=== PATIENT | male | born 1950 | race Caucasian/White ===

== ENCOUNTER 2019-07-02 10:40 | Outpatient (CLI) | payer MEDICARE, SELFPAY ==
--- NOTE | ~2019-07-02 | MR_ITS ---
EXAMINATION: MR cervical spine wo con DATE: 07/02/2019 12:17 INDICATION: Cervical radiculopathy. TECHNIQUE: Magnetic resonance imaging (MRI) of the cervical spine was performed without intravenous c ontrast. Sequences included sagittal T2-weighted FSE, sagittal T2-weighted FS FSE, sagittal T1-weight ed FSE, axial MERGE, and axial T2-weighted FSE. COMPARISON: None FINDINGS: There is 2 mm retrolisthesis of C3 on C4 and C5 on C6. Partially visualized are changes of posterior fusion procedure in thoracic spine. There is mild chronic anterior wedging of T5 and T6 irving tebral bodies. There is severely decreased disc height at C3-C4 and moderately decreased disc height at C5-C6 and C6-C7. The spinal cord signal intensity is normal. The following disc levels are specifi montserrat discussed: C2-C3: The disc does not extend beyond the endplate margin. There is no uncovertebral joint osteoarth ritis. There is mild right and moderate left facet joint osteoarthritis. There is no neural foraminal stenosis. There is no central canal stenosis. C3-C4: The disc is bulging. There is severe bilateral uncovertebral joint osteoarthritis. There is mo derate bilateral facet joint osteoarthritis. There is mild bilateral neural foraminal stenosis. There is mild central canal stenosis with ventral indentation of the spinal cord. C4-C5: There is a central protrusion. There is mild right uncovertebral joint osteoarthritis. There i s severe right and moderate left facet joint osteoarthritis. There is mild right neural foraminal elle nosis. There is no central canal stenosis. C5-C6: The disc is bulging. There is severe bilateral uncovertebral joint osteoarthritis. There is mi ld bilateral facet joint osteoarthritis. There is moderate right and mild left neural foraminal steno sis. There is mild central canal stenosis with ventral indentation of the spinal cord. C6-C7: The disc is bulging. There is severe bilateral uncovertebral joint osteoarthritis. There is se carmine bilateral facet joint osteoarthritis. There is mild right and moderate left neural foraminal elle nosis. There is mild central canal stenosis. C7-T1: The disc does not extend beyond the endplate margin. There is no uncovertebral joint osteoarth ritis. There is severe bilateral facet joint osteoarthritis. There is mild bilateral neural foraminal stenosis. There is no central canal stenosis. IMPRESSION: 1. Severe cervical spondylosis. Reviewed, dictated and finalized at location A. 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
== END 2019-07-02 10:41 | disposition home or self-care (01) ==
PROVIDERS: PCP Internal Medicine; Visit Provider Internal Medicine
DX: M47.22 Other spondylosis with radiculopathy, cervical region (principal)
CPT/HCPCS: 72141

== ENCOUNTER 2020-01-09 12:42 | Outpatient (CLI) | payer MEDICARE, SELFPAY ==
--- NOTE | ~2020-01-09 | CT_ITS ---
EXAMINATION:CT lung screening DATE: 01/09/2020 13:10 INDICATION: Personal history of tobacco dependence. Current smoker with 45 pack year history. TECHNIQUE: Computed tomography (CT) of the chest was performed without intravenous contrast. Automate d exposure control and iterative reconstruction technique were employed. The dose-length product (DLP ) was 131.02 mGy-cm. COMPARISON: Chest CT 12/02/2017 FINDINGS: There is mild scarring at the lung apices. There is mild atelectasis bilaterally. There is a 4 mm nodule in right middle lobe. No pleural effusion. The heart size is normal. There are coronary artery calcifications. No pericardial effusion. There is thoracic kyphosis and moderate spondylosis. There is mild chronic anterior wedging of multiple thoracic vertebral bodies. There are changes of p osterior fusion procedure at T5-T6. IMPRESSION: 1. Lung-RADS category 2: Benign appearance or behavior. Continue annual screening with noncontrast lo w-dose chest CT in 12 months. Reviewed, dictated and finalized at location A. IMPRESSION: 1. Lung-RADS category 2: Benign appearance or behavior. Continue annual screeni ng with noncontrast low-dose chest CT in 12 months.
== END 2020-01-09 12:43 | disposition home or self-care (01) ==
LOC: ANHIMG 12:46
PROVIDERS: PCP Internal Medicine; Visit Provider Internal Medicine
DX: Z12.2 Encounter for screening for malignant neoplasm of respiratory organs (principal); Z87.891 Personal history of nicotine dependence
CPT/HCPCS: G0297

== ENCOUNTER 2021-11-06 00:56 | Day surgery (SDC) | payer MEDICARE, SELFPAY ==
[2021-10-15 11:27] VITALS: BMI 29.6
--- NOTE | 2021-10-25 10:08 | PC.NURSE ---
New date and arrival time reviewed with patient for EGD and Colonoscopy on 11/06/21 13:00 arrival at 11:30. Medication list updated, instructions reviewed
--- NOTE | 2021-11-05 14:56 | WPDANESEPPF ---
Anes - Initial Pre Proc Eval Procedure: Operation Date: 11/06/21 11:15 Proposed Procedures p Esophagogastroduodenoscopy & Screening Colonoscopy - Rikki Ricketts MD Date/Time: 11/05/21 14:56 Surgeon: Rikki Ricketts MD Pre Op Diagnosis: hx of colon polyps, abdominal pain, GERD Patient Data Age: 71 Gender: M Height: 1.73 m Weight: 88.5 kg Allergies Allergy/AdvReac Type Severity Reaction Status Date / Time amoxicillin Allergy Severe ITCHING, Verified 11/06/21 10:00 DIFFICULTY SWALLOWING adhesive AdvReac Intermediate REDNESS Verified 11/06/21 10:00 bacitracin AdvReac Unknown REDNESS AT Verified 11/06/21 10:00 THE SITE neomycin AdvReac Unknown REDNESS AT Verified 11/06/21 10:00 THE SITE polymyxin B AdvReac Unknown REDNESS AT Verified 11/06/21 10:00 THE SITE Home Medications Medication Instructions Recorded Confirmed Type sodium,potassium,mag sulfates 17.5 See Rx Instructions PO .COMPLEX 09/10/21 10/25/21 Rx gram-3.13 gram-1.6 gram oral soln #354 mL (Suprep Bowel Prep Kit) allopurinol 300 mg tablet 300 tablet PO DAILY 10/15/21 10/25/21 History coQ10 (ubiquinol) 200 mg capsule 200 mg PO DAILY 10/15/21 10/25/21 History fexofenadine 180 mg tablet 180 mg PO DAILY 10/15/21 10/25/21 History fluticasone propionate 50 2 spray intranasal DAILY PRN 10/15/21 10/25/21 History mcg/actuation nasal Allergy Symptoms spray,suspension (Flonase Allergy Relief) lisinopril 20 1 tablet PO DAILY 10/15/21 10/25/21 History mg-hydrochlorothiazide 12.5 mg tablet lorazepam 0.5 mg tablet 0.5 tablet PO TID PRN Anxiety 10/15/21 10/25/21 History multivitamin with minerals-folic 1 tablet PO DAILY 10/15/21 10/25/21 History acid 0.4 mg tablet rosuvastatin 10 mg tablet 10 tablet PO DAILY 10/15/21 10/25/21 History triamcinolone acetonide 0.1 % 1 applic topical PRN PRN Rash 10/15/21 10/25/21 History topical cream triamcinolone acetonide 55 mcg 1 spray intranasal DAILY PRN 10/15/21 10/25/21 History nasal spray aerosol (Nasacort) Allergy Symptoms omeprazole 20 mg capsule,delayed 20 mg PO DAILY 10/25/21 10/25/21 History release Patient hx anesthesia problems: none Family hx anesthesia problems: none Results Review: All pre-operative results and documents have been reviewed as part of the pre-operative evaluation. [facility] Past Medical History Medical History (Updated 11/05/21 @ 16:59 by Rikki Ricketts MD) Anxiety Chronic GERD DDD (degenerative disc disease) HTN (hypertension) Hyperlipidemia Obesity Social History Social History Smoking packs per day: 2 Smoking cigarettes per day: 40.0 Years smoked: 35 Smoking pack-years: 70.00 Smoking status: Former smoker Tobacco type: cigarettes Alcohol intake: current Drinks per week: 3 Substance use: never Substance use type: does not use Living arrangements: with family Spiritual care concerns: No Anes - Eval Final PreProcedure Day of Procedure 11/05/21 14:56 Patient weight: obese Heart: regular rate and rhythm Lungs: clear to auscultation and normal air movement Airway: Mallampati scale class II Neurological: alert and oriented Last oral intake: >/= 8 hours ASA classification: III Emergent: no Anesthetic plan: proceed Anesthesia type and monitoring: general GIVS Results Review: All pre-operative results and documents have been reviewed as part of the pre-operative evaluation. Informed Consent: The patient's anesthetic plan and its attendant risks and benefits were discussed with the patient/family/POA. Questions were solicited and answers provided to the satisfaction of the patient/family/POA.
--- NOTE | 2021-11-05 16:58 | PM.HPGS ---
History of Present Illness History of Present Illness Consent: Risks, benefits, and alternatives have been discussed and questions answered. Patient agrees to proceed with procedure. Chief complaint: hx of colon polyps, abdominal pain, GERD Narrative: Joshua Gray is a 71 year old male Referred for colon cancer screening. he has a history of polyps. His last colonoscopy was about 5 years ago. Recently he has felt a discomfort in the area of his bladder because he has to strain to have a bowel movement. He wonders if he might have pulled something there. He also has been having pain in the upper abdomen. It is sometimes constant. He has been told in the past that he had gastritis. He does take ibuprofen or other anti-inflammatories for his back. In June when his foot flared up with inflammation he took the steroid dose pack. Shortly after that he began having more gastrointestinal symptoms with a burning or hunger sensation in the epigastric area. He was getting better last month but then had some fried chicken and that set off in September a flare up. He was then switched from famotidine to Prilosec. He has taken Prilosec for about 3 weeks but has not noticed any benefit from that. There has been no weight loss Review of Systems Review of Systems: All systems reviewed & are unremarkable except as noted in HPI and below PMFSH Past Medical History Medical History (Updated 11/06/21 @ 10:52 by Rikki Ricketts MD) Anxiety Chronic GERD DDD (degenerative disc disease) HTN (hypertension) Hyperlipidemia Obesity Social History Social History Smoking packs per day: 2 Smoking cigarettes per day: 40.0 Years smoked: 35 Smoking pack-years: 70.00 Smoking status: Former smoker Tobacco type: cigarettes Alcohol intake: current Drinks per week: 3 Substance use: never Substance use type: does not use Living arrangements: with family Spiritual care concerns: No Meds Home Medications and Allergies Home Medications Medication Instructions Recorded Confirmed Type sodium,potassium,mag sulfates 17.5 See Rx Instructions PO .COMPLEX 09/10/21 10/25/21 Rx gram-3.13 gram-1.6 gram oral soln #354 mL (Suprep Bowel Prep Kit) allopurinol 300 mg tablet 300 tablet PO DAILY 10/15/21 10/25/21 History coQ10 (ubiquinol) 200 mg capsule 200 mg PO DAILY 10/15/21 10/25/21 History fexofenadine 180 mg tablet 180 mg PO DAILY 10/15/21 10/25/21 History fluticasone propionate 50 2 spray intranasal DAILY PRN 10/15/21 10/25/21 History mcg/actuation nasal Allergy Symptoms spray,suspension (Flonase Allergy Relief) lisinopril 20 1 tablet PO DAILY 10/15/21 10/25/21 History mg-hydrochlorothiazide 12.5 mg tablet lorazepam 0.5 mg tablet 0.5 tablet PO TID PRN Anxiety 10/15/21 10/25/21 History multivitamin with minerals-folic 1 tablet PO DAILY 10/15/21 10/25/21 History acid 0.4 mg tablet rosuvastatin 10 mg tablet 10 tablet PO DAILY 10/15/21 10/25/21 History triamcinolone acetonide 0.1 % 1 applic topical PRN PRN Rash 10/15/21 10/25/21 History topical cream triamcinolone acetonide 55 mcg 1 spray intranasal DAILY PRN 10/15/21 10/25/21 History nasal spray aerosol (Nasacort) Allergy Symptoms omeprazole 20 mg capsule,delayed 20 mg PO DAILY 10/25/21 10/25/21 History release Allergies Allergy/AdvReac Type Severity Reaction Status Date / Time amoxicillin Allergy Severe ITCHING, Verified 11/06/21 10:00 DIFFICULTY SWALLOWING adhesive AdvReac Intermediate REDNESS Verified 11/06/21 10:00 bacitracin AdvReac Unknown REDNESS AT Verified 11/06/21 10:00 THE SITE neomycin AdvReac Unknown REDNESS AT Verified 11/06/21 10:00 THE SITE polymyxin B AdvReac Unknown REDNESS AT Verified 11/06/21 10:00 THE SITE Exam Const: General: alert Orientation/consciousness: patient oriented x3 Resp: Auscultation: clear to auscultation bilaterally Cardio: Rate: regular rate Rhythm: regular
[2021-11-06 10:02] VITALS: BP 143/96; PULSE 125; RESP 19; TEMP 36.5; O2SAT 100
[2021-11-06] MEDS: LACTATED RINGERS 1,000 ML 150 ML IV CONT (10:13)
[2021-11-06] MEDS: BENZOCAINE (*SP) 60 ML SPRAY CAN (HURRICAINE) 1 SPRAY MUCOUS MEM (10:58)
[2021-11-06 11:17] VITALS: BP 101/66; PULSE 102; RESP 21; O2SAT 100
[2021-11-06 11:27] VITALS: BP 121/61; PULSE 97; RESP 19; O2SAT 99
[2021-11-06 11:37] VITALS: BP 126/61; PULSE 92; RESP 27; O2SAT 99
--- NOTE | 2021-11-06 11:41 | SUR.OPER ---
EGD: start 1159, stop 1102 COLON: start 1106, stop 1114
== END 2021-11-06 11:48 | disposition home or self-care (01) ==
PROVIDERS: PCP Internal Medicine; Visit Provider Internal Medicine Gastroenterology
PROC: 0DJ08ZZ Inspection of Upper Intestinal Tract, Via Natural or Artificial Opening Endoscopic (ICD-10-PCS; CPT 43235; principal; 2021-11-06 11:15)
DX: Z12.11 Encounter for screening for malignant neoplasm of colon (principal); K64.8 Other hemorrhoids; Z86.010 Personal history of colon polyps; K21.9 Gastro-esophageal reflux disease without esophagitis; I10 Essential (primary) hypertension; E78.5 Hyperlipidemia, unspecified; F41.9 Anxiety disorder, unspecified; E66.9 Obesity, unspecified; Z68.30 Body mass index [BMI] 30.0-30.9, adult; Z87.891 Personal history of nicotine dependence
CPT/HCPCS: 43239; G0105; 87081; J2704; J7120

== ENCOUNTER 2021-11-20 09:27 | Outpatient (CLI) | payer MEDICARE, SELFPAY ==
--- NOTE | ~2021-11-20 | MR_ITS ---
EXAMINATION: MR abdomen wo/w con INDICATION: Liver mass, abdominal pain TECHNIQUE: Coronal SSFSE ARC, WATER:coronal LAVA-FLEX, Coronal 2D FIESTA FatSat, Axial SSFSE BH ARC, Axial 3D DualEcho BH, Axial SSFSE-IR, Axial DWI b=500, Axial 2D FIESTA FatSat, pre and dynamic postco ntrast Axial LAVA ARC, postcontrast Coronal In and Opposed phase LAVA FLEX COMPARISON: None available CONTRAST: Multihance, 18 cc FINDINGS: There are multiple (greater than 20) liver masses which range in size from 2 mm to 2.9 cm. The larger masses are generally T1 hypointense, mildly T2 hyperintense, and demonstrate reticular int ernal enhancement and progressive postcontrast images as well as restricted diffusion. Motion artifac t somewhat limits the postcontrast images. There is a 3.7 x 3.7 cm mildly T1 hypointense and mixed T2 hyperintense and hypointense mass arising from the tail of the pancreas. The spleen, gallbladder, ad renal glands, and kidneys are normal. There is a moderate volume of ascites. Small pleural effusions are present, right greater than left. There are no dilated loops of bowel. There is mild peripancreat ic and periportal lymphadenopathy. There is thrombosis of the splenic vein. IMPRESSION: 1. 3.7 cm mass of the pancreatic tail concerning for pancreatic adenocarcinoma. Peripancreatic and pe riportal lymphadenopathy as well as multiple liver masses are consistent with metastatic disease. Ult rasound-guided liver biopsy is recommended. 2. Small pleural effusions, right greater than left. Reviewed, dictated and finalized at location A. IMPRESSION: 1. 3.7 cm mass of the pancreatic tail concerning for pancreatic adenocarcinoma. Peripancreatic and periportal lymphadenopathy as well as multiple liver masses are consistent with metastatic disease. Ultrasound-guided liver biopsy is ranjit mmended. 2. Small pleural effusions, right greater than left.
[2021-11-20 10:03] LABS: Estimated Glomerular Filt Rate 50
== END 2021-11-20 09:28 | disposition home or self-care (01) ==
PROVIDERS: PCP Internal Medicine; Visit Provider Internal Medicine
DX: R16.0 Hepatomegaly, not elsewhere classified (principal); K86.89 Other specified diseases of pancreas; R59.0 Localized enlarged lymph nodes; J90 Pleural effusion, not elsewhere classified
CPT/HCPCS: 74183; A9577

== ENCOUNTER 2021-11-27 14:02 | Inpatient (IN) | payer MEDICARE, SELFPAY ==
[2021-11-27] VITALS (16 sets, daily range): BP systolic 121–160; BP diastolic 73–103; PULSE 73–126; RESP 16–30; TEMP 36.6–36.7; O2SAT 94–97; BMI 30.6
--- NOTE | ~2021-11-27 | CT_ITS ---
EXAMINATION: CTA chest PE protocol DATE: 11/27/2021 15:15 INDICATION: Shortness of breath TECHNIQUE: Computed tomography angiography (CTA) of the chest was performed with 100 mL Omnipaque-350 intravenous contrast timed to evaluate the pulmonary arteries. Coronal maximum intensity projection 3D-reconstructions were created by the technologist. Automated exposure control and iterative reconst ruction technique were employed. Exam dose: 651.43 mGy-cm total exam DLP. COMPARISON: 01/09/2020 CT lung screening FINDINGS: There is diagnostic contrast enhancement of the pulmonary arteries. The examination is posi tive for pulmonary embolism including saddle embolus at the bifurcation of main pulmonary artery, wit h extensive right main pulmonary artery embolism and saddle embolus at the right pulmonary artery bif urcation. There is extensive right upper, middle and lower lobe pulmonary embolism, mild left lower l obe pulmonary embolism. Thoracic aortic and great vessel and coronary artery calcifications. No thoracic aortic aneurysm or d issection is evident. Normal heart size. No pericardial effusion. Bilateral mild to moderate pleural effusions, right great er than left. There are numerous pulmonary metastatic deposits scattered in both lungs, most measuring 4 mm or smal ler, the largest measuring up to 7.5 mm maximal dimension in the right lower lobe. Numerous hypoattenuating masses of the liver consistent with extensive hepatic metastatic disease. Moderate ascites. Suspected roughly 3 x 4 cm pancreatic tail mass with splenic invasion. Severe degenerative disc disease in lower cervical spine. Posterior surgical fusion by pedicle screws and rods at T5-T6 No suspicious osteolytic or osteosclerotic lesions are identified. IMPRESSION: Bilateral pulmonary emboli including saddle embolus on the right Multiple pulmonary and hepatic metastatic lesions Bilateral pleural effusions, right greater than left Ascites Suspected pancreatic tail mass with suggestion of splenic invasion; metastatic pancreatic carcinoma i s suspected. Reviewed, dictated and finalized at [facility]. Reviewed, dictated and finalized at location A. IMPRESSION: Bilateral pulmonary emboli including saddle embolus on the right Multiple pulmonary and hepatic metastatic lesions Bilateral pleural effusions, right greater than left Ascites Suspected pancreatic tail mass with suggestion of splenic invasion; metastatic pancreatic carcinoma is suspected.
--- NOTE | ~2021-11-27 | US_ITS ---
EXAMINATION: US biopsy liver DATE: 11/29/2021 11:02 INDICATION: Liver metastases TECHNIQUE: The procedure including the risks and benefits was discussed with the patient. Risks discu ssed included bleeding and infection. The patient understood the risks and agreed to proceed. The sk in overlying the right hepatic lobe was prepped and draped in usual sterile fashion. Anesthetic was administered with 1% lidocaine subcutaneously. An 18 gauge core biopsy needle was advanced under con tinuous ultrasound observation to the lesion of interest. 5 core biopsy specimens were obtained. The needle was removed and the entry site was cleaned and dressed. Post procedure ultrasound demonstra adelso no hemorrhage. FINDINGS: Ultrasound images demonstrate biopsy needle advanced into a 3.4 cm mixed solid and centrall y cystic mass in the right hepatic lobe. IMPRESSION: 1. Successful Ultrasound-guided biopsy of a 3.4 cm mixed solid and cystic mass in the right hepatic l obe. Reviewed, dictated and finalized at location [facility]. IMPRESSION: 1. Successful Ultrasound-guided biopsy of a 3.4 cm mixed solid and cystic mass in the right hepatic lobe.
--- NOTE | ~2021-11-27 | XR_ITS ---
EXAMINATION: XR fl guide central line place DATE: 12/05/2021 11:15 INDICATION: Left-sided port catheter insertion TECHNIQUE: Single frontal fluoroscopic image of the central chest was obtained during procedure perfo rmed by Dr. Munoz. Radiologist was not present for the imaging or procedure. The amount of fluoroscop y time used during this procedure was 0.4 minutes. COMPARISON: CT dated 11/27/2021 FINDINGS: Distal tip of a reported left-sided central venous port catheter projects over the superior cavoatria l junction. Bilateral vertical odessa and pedicle screw fixation for posterior spinal fusion at T5-T6 ba sed on prior chest CT. IMPRESSION: 1. Central venous catheter tip at the superior cavoatrial junction. Reviewed, dictated and finalized at location [facility].
--- NOTE | ~2021-11-27 | US_ITS ---
EXAMINATION: US paracentesis abd w/image DATE: 11/29/2021 11:02 INDICATION: Ascites. TECHNIQUE: The procedure and its risks and benefits were discussed with the patient. Potential risks discussed included bleeding and infection. The skin was prepped and draped in sterile fashion. 1% lid ocaine was used for local anesthesia. Under ultrasound guidance, a 5 Fr catheter with trochar was adv anced into the ascites in the right lower quadrant. Fluid was aspirated into vacuum bottles. The cath eter was removed, and a dressing was applied. While obtaining trench shovel operator images for the planned subsequent liver biopsy there was reaccumulation of some perihepatic ascites. A second site overlying the cauda l aspect of the right hepatic lobe was sterilely prepped and draped. 1% lidocaine was used for local anesthesia. A second 5 Fr catheter was advanced into the ascites under continuous ultrasound guidance . An additional 400 mL of fluid was aspirated. The catheter was removed and the site was subsequently utilized for the liver biopsy details of which will be dictated separately. A sterile bandage was th en applied. There were no immediate complications. FINDINGS: Ultrasound images demonstrate ascites and the catheter within the fluid first in the right lower quad rant and subsequently overlying the liver. IMPRESSION: 1. Successful ultrasound-guided paracentesis yielding a total of 3100 mL of cloudy yellowish fluid. Reviewed, dictated and finalized at location A. IMPRESSION: 1. Successful ultrasound-guided paracentesis yielding a total of 3100 mL of cl oudy yellowish fluid.
--- NOTE | ~2021-11-27 | XR_ITS ---
EXAMINATION: XR chest port-a-cath/central DATE: 12/05/2021 11:30 INDICATION: Port placement. TECHNIQUE: A single frontal view of the chest was obtained. COMPARISON: Chest 2 views 05/11/2015 FINDINGS: The lung volumes are small. There are airspace opacities in right mid and lower lung zones and left lower lung zone, likely atelectasis. No pleural effusion or pneumothorax. The heart size is normal. There are changes of posterior fusion procedure in thoracic spine. There is a left subclavian port with tip in superior vena cava. There is displacement and compression of the catheter between t he clavicle and first rib. IMPRESSION: 1. Port tip in superior vena cava. Catheter displacement and compression between the clavicle and fir st rib increases the risk of catheter fracture. 2. Small lung volumes with atelectasis in right mid and lower lung zones and left lower lung zone. Reviewed, dictated and finalized at location A. IMPRESSION: 1. Port tip in superior vena cava. Catheter displacement and compression betwee n the clavicle and first rib increases the risk of catheter fracture. 2. Small lung volumes with atelectasis in right mid and lower lung zones and le ft lower lung zone.
--- NOTE | ~2021-11-27 | US_ITS ---
EXAMINATION: US venous doppler [facility] DATE: 11/28/2021 11:35 INDICATION: Pulmonary embolism TECHNIQUE: Grayscale ultrasound images without and with compression and Doppler ultrasound images of the bilateral lower extremity veins were obtained. COMPARISON: None. FINDINGS: The visualized portions of right common femoral vein, profunda (deep) femoral vein, femoral vein, pop liteal vein, posterior tibial veins, peroneal veins, gastrocnemius vein and greater saphenous vein ou tflow are patent. The visualized portions of left common femoral vein, profunda femoral vein, femoral vein, popliteal v ein, gastrocnemius vein and greater saphenous vein outflow are patent. Occlusive appearing noncompres sible thrombus in the paired left peroneal veins and in one of the paired left posterior tibial veins at the left calf. IMPRESSION: 1. Left sfree-zav-ysoj deep venous thrombosis in both of the paired left peroneal veins and in one o f the paired left posterior tibial veins. 2. No deep venous thrombosis in the right lower limb. Reviewed, dictated and finalized at location A. IMPRESSION: 1. Left hpeya-vkk-epsp deep venous thrombosis in both of the paired left peron eal veins and in one of the paired left posterior tibial veins. 2. No deep venous thrombosis in the right lower limb.
--- NOTE | 2021-11-27 14:29 | ECG_ITS ---
Measurements Intervals [place] Rate: 122 P: 61 DC: 148 QRS: 79 QRSD: 97 T: 39 QT: 342 QTc: 489 Interpretive Statements SINUS TACHYCARDIA DELAYED PRECORDIAL R/S TRANSITION BORDERLINE ST-T WAVE ABNORMALITY- ANT/INF LEADS BASELINE ARTIFACT- I, III, AVR, AVL, AVF, V6 ABNORMAL ECG Electronically Signed On 11-27-2021 15:47:53 CDT by Ken Looney D.O.
[2021-11-27 14:47] LABS: Basophils Absolute Auto 0.1 K/mm3 (0.0-0.1); Basophils Percent Auto 0.6 % (0.2-1.2); Eosinophils Absolute Auto 0.4 K/mm3 (0-0.3); Eosinophils Percent Auto 4.2 % (0-4.4); Hematocrit 41.3 % (42.0-52.0); Hemoglobin 13.9 g/dL (14.0-18.0); Immature Granulocyte Absolute 0.03 K/mm3 (0.00-0.031); Immature Granulocyte Percent A 0.4 % (0-0.5); Lymphocytes Absolute Auto 0.96 K/mm3 (0.9-3.2); Lymphocytes Percent Auto 11.5 % (18.3-44.2); Mean Corpuscular HGB Conc 33.7 g/dl (32-36); Mean Corpuscular Hemoglobin 31.7 pg (26-34); Mean Corpuscular Volume 94.1 fl (80-100); Mean Platelet Volume 11.1 fl (7.4-10.4); Monocytes Absolute Auto 0.8 K/mm3 (0.1-0.6); Neutrophils Absolute Auto 6.2 K/mm3 (1.3-6.7); Neutrophils Percent Auto 74.3 % (45.5-73.1); Platelet Count Result 240 k/mm3 (150-375); Red Blood Count 4.39 M/mm3 (4.6-6.20); Red Cell Distribution Width 14.4 % (11.5-14.5); White Blood Count 8.4 K/mm3 (4.5-10.0)
[2021-11-27 14:57] LABS: Alanine Aminotransferase 31 U/L (6-50); Albumin Level 4.4 g/dL (3.5-5.1); Alkaline Phosphatase 147 U/L (38-126); Anion Gap 7 mmol/L (8-16); Aspartate Amino Transferase 49 U/L (17-59); Bilirubin,Total 0.7 mg/dL (0.2-1.3); Blood Urea Nitrogen 24 mg/dL (9-20); Calcium 9.3 mg/dL (8.4-10.2); Carbon Dioxide 28 mmol/L (22-30); Chloride 102 mmol/L (98-107); Estimated CRCL calculation 51 ml/min; Estimated Glomerular Filt Rate 60; Glucose 152 mg/dL (65-110); INR 1.1; Lipase 308 U/L (23-300); Potassium 3.7 mmol/L (3.4-5.0); Prothrombin Time 13.9 Seconds (11.1-14.7); Sodium 137 mmol/L (137-145)
[2021-11-27] MEDS: HEPARIN SOD/D5W 100 UNITS/ML 25,000 UNITS/250 ML BAG 14 UNITS IV CONT (15:52)
[2021-11-27] MEDS: HEPARIN SODIUM 5,000 UNITS/ML VIAL 6000 UNITS IV PUSH (15:52)
--- NOTE | 2021-11-27 15:58 | ED.SOB ---
HPI - SOB/Dyspnea General Chief Complaint: Shortness of Breath/Dyspnea Stated Complaint: fatigue, sob, weakness Time Seen by Provider: 11/27/21 14:08 History of Present Illness HPI Narrative: Patient is a 71-year-old male who presents ER with fatigue and shortness of breath. Ongoing for 2 days. No chest pain or chest pressure. No loss of consciousness. Cannot get up and walk without extreme dyspnea. Patient currently being worked up for a pancreatic mass with possible metastases to the liver. His primary care doctor is currently reviewing images with the radiologist at [facility]. Patient has not had a biopsy. Denies lower extremity swelling or cramping in the calves. Denies excessive weight loss. Related Data Home Medications Medication Instructions Recorded Confirmed allopurinol 300 mg tablet 300 mg PO DAILY 10/15/21 11/27/21 coQ10 (ubiquinol) 200 mg capsule 200 mg PO DAILY 10/15/21 11/27/21 fexofenadine 180 mg tablet 180 mg PO DAILY 10/15/21 11/27/21 fluticasone propionate 50 2 spray intranasal DAILY PRN 10/15/21 11/27/21 mcg/actuation nasal Allergy Symptoms spray,suspension (Flonase Allergy Relief) lisinopril 20 1 tablet PO DAILY 10/15/21 11/27/21 mg-hydrochlorothiazide 12.5 mg tablet lorazepam 0.5 mg tablet 0.5 mg PO TID PRN Anxiety 10/15/21 11/27/21 multivitamin with minerals-folic 1 tablet PO DAILY 10/15/21 11/27/21 acid 0.4 mg tablet rosuvastatin 10 mg tablet 10 mg PO DAILY 10/15/21 11/27/21 omeprazole 20 mg capsule,delayed 20 mg PO DAILY 10/25/21 11/27/21 release Allergies Allergy/AdvReac Type Severity Reaction Status Date / Time amoxicillin Allergy Severe ITCHING, Verified 11/06/21 10:00 DIFFICULTY SWALLOWING adhesive AdvReac Intermediate REDNESS Verified 11/06/21 10:00 bacitracin AdvReac Unknown REDNESS AT Verified 11/06/21 10:00 THE SITE neomycin AdvReac Unknown REDNESS AT Verified 11/06/21 10:00 THE SITE polymyxin B AdvReac Unknown REDNESS AT Verified 11/06/21 10:00 THE SITE Review of Systems Review of Systems: All systems reviewed & are unremarkable except as noted in HPI and below Constitutional: Constitutional: Denies chills, Reports fatigue and Denies fever(s) ENT: Denies nasal congestion and Denies sore throat Cardiovascular: Cardiovascular: Denies chest pain, Denies rapid heart rate and Denies radiating jaw, neck or arm pain Respiratory: Respiratory: Denies cough and Reports dyspnea Gastrointestinal: Gastrointestinal: Denies abdominal pain, Denies nausea and Denies vomiting Musculoskeletal: Musculoskeletal: Denies back pain, Denies arthralgias, Denies joint swelling and Denies muscle cramps Neurologic: Denies syncope, Denies focal weakness and Denies numbness PMFSH Past Medical History Medical History (Updated 11/27/21 @ 22:12 by Durga Myles MD) Anxiety Chronic GERD DDD (degenerative disc disease) Gout HTN (hypertension) Hyperlipidemia Obesity Surgical History Surgical History (Updated 11/27/21 @ 17:06 by Heaven Jimenes NP) History of back surgery fusion S/P tonsillectomy Family History Family History Mother CHF (congestive heart failure), NYHA class I Father ESRD (end stage renal disease) Social History Social History (Updated 11/27/21 @ 18:27 by Heaven Jimenes NP) Social History: He lives alone. He is . He would like his daughter to be poa. He is retired [employer]. He drinks 1-2 alcoholic beverages a day. He has one child, 1 child code status full code Smoking packs per day: 2 Smoking cigarettes per day: 40.0 Years smoked: 35 Smoking pack-years: 70.00 Smoking status: Former smoker Tobacco type: cigarettes Alcohol intake: current Drinks per week: 3 Substance use: never Substance use type: does not use Spiritual care concerns: No Exam Narrative: GENERAL: Well-appearing, well-nourish
[2021-11-27 16:14] LABS: NT Pro B Type Natriuretic Pept 655 pg/mL (5-100); Troponin I 0.057 ng/mL (0.000-0.034)
[2021-11-27 16:39] LABS: SARS-CoV-2 RNA PCR Negative
--- NOTE | 2021-11-27 17:00 | PM.IMHP ---
H&P: HPI History of Present Illness Date/Time: 11/27/21 17:00 Chief Complaint: sob since yesterday Narrative: This is a 71-year-old male patient who has been complaining of abdominal pain for the past 2-3 weeks. The patient had an EGD which shows nonerosive reflux disease. Today the patient came in with shortness of breath and dyspnea. The patient was sent for an abdominal MRI on 11/20/2021 which was read as 3.7 cm mass of the pancreatic tail concerning for pancreatic adeno carcinoma. Peripancreatic and periportal lymphadenopathy as well as multiple liver masses are consistent with metastatic disease. Ultrasound-guided liver biopsy is recommended. Small pleural effusion right greater than left. He the patient stated that his primary care doctor was going to review his MRI and discussed it with another radiologist for 2nd opinion. However the patient felt short of breath that came on all of a sudden this past Thursday. So the patient decided to come to the emergency room. CTA pulmonary was read as bilateral pulmonary emboli including saddle embolus on the right. Multiple pulmonary and hepatic metastatic lesions. Bilateral pleural effusions right greater than left ascites suspected pancreatic tail mass with suggestion of splenic invasion metastatic pancreatic carcinoma suspected. The patient was started on a heparin drip. Interventional Radiology has been consulted for ultrasound-guided liver biopsy. His H&H is 13.9 and 41.3. Troponin 0.057. BNP 655. Lipase 308 COVID negative. Patient is being admitted to observation status on the date of service of 11/27/2021 Review of Systems Review of Systems: All systems reviewed & are unremarkable except as noted in HPI and below Constitutional: Constitutional: Reports as per HPI and Reports no additional constitutional complaints Eyes: Eyes: Reports as per HPI and Reports no additional eye complaints ENT: Reports system reviewed and no additional complaints, except as documented and Reports Normal hearing present Cardiovascular: Cardiovascular: Reports no additional cardiovascular complaints Respiratory: Respiratory: Reports no additional respiratory complaints and Reports no additional respiratory complaints Gastrointestinal: Gastrointestinal: Reports as per HPI and Reports no additional gastrointestinal complaints Musculoskeletal: Musculoskeletal: Reports no additional musculoskeletal complaints Integumentary/Breasts: Skin/Breast: Reports system reviewed and no additional complaints, except as docu and Reports as per HPI Neurologic: Reports system reviewed and no additional complaints, except as documented, Reports as per HPI and Reports Normal hearing present Psychiatric: Psychiatric: Reports no additional psychiatric complaints and Reports as per HPI Endocrine: Endocrine: Reports no additional endocrine complaints Hematologic/Lymphatic: Hematologic/Lymphatic: Reports no additional hematologic/lymphatic complaints Allergic/Immunologic: Allergic/Immunologic: Reports no additional allergic/immunologic complaints [facility] Past Medical History Medical History (Updated 11/27/21 @ 18:25 by Heaven Jimenes NP) Anxiety Chronic GERD DDD (degenerative disc disease) Gout HTN (hypertension) Hyperlipidemia Obesity Surgical History Surgical History (Updated 11/27/21 @ 17:06 by Heaven Jimenes NP) History of back surgery fusion S/P tonsillectomy Family History Family History Mother CHF (congestive heart failure), NYHA class I Father ESRD (end stage renal disease) Social History Social History (Updated 11/27/21 @ 18:27 by Heaven Jimenes NP) Social History: He lives alone. He is . He would like his daughter to be poa. He is retired [employer]. He drinks 1-2 alcoholic beverages a day. He has one child, 1 child code status full code Smoking packs per day: 2 Smoking cigarettes per day:
--- NOTE | 2021-11-27 19:02 | ADMGEN ---
This patient, Joshua Gray, was admitted to IMU Room 210-01 at 1852 on report received from Radha UMANA. Patient/family oriented to hospital policies and general routines including ID bracelet, bed and alarms, visiting hours, pain management, procedures, bathroom and other care routines, personal items, smoking policy, room service/diet, and visiting hours. Information on how to activate the Rapid Response Team has been discussed. Patient/Family are encouraged to report perceived risks to care and to ask questions if they do not understand what they are told or what they should do.
[2021-11-27] MEDS: ACETAMINOPHEN 325 MG TABLET 650 MG PO (20:00)
[2021-11-27 20:07] LABS: Basophils Percent Auto 0.6 % (0.2-1.2); Eosinophils Absolute Auto 0.3 K/mm3 (0-0.3); Eosinophils Percent Auto 3.7 % (0-4.4); Hematocrit 39.4 % (42.0-52.0); Hemoglobin 13.3 g/dL (14.0-18.0); Immature Granulocyte Absolute 0.02 K/mm3 (0.00-0.031); Immature Granulocyte Percent A 0.3 % (0-0.5); Lymphocytes Absolute Auto 1.12 K/mm3 (0.9-3.2); Lymphocytes Percent Auto 15.8 % (18.3-44.2); Mean Corpuscular HGB Conc 33.8 g/dl (32-36); Mean Corpuscular Hemoglobin 31.5 pg (26-34); Mean Corpuscular Volume 93.4 fl (80-100); Mean Platelet Volume 10.8 fl (7.4-10.4); Monocytes Absolute Auto 0.6 K/mm3 (0.1-0.6); Monocytes Percent Auto 8.8 % (2.6-8.5); Neutrophils Percent Auto 70.8 % (45.5-73.1); Platelet Count Result 204 k/mm3 (150-375); Red Blood Count 4.22 M/mm3 (4.6-6.20); Red Cell Distribution Width 14.4 % (11.5-14.5); White Blood Count 7.1 K/mm3 (4.5-10.0)
[2021-11-27 20:39] LABS: Troponin I 0.056 ng/mL (0.000-0.034)
[2021-11-27] MEDS: HYDROcodone/acetaminophen (*CRX) 5-325 MG TABLET 1 TAB PO (23:05)
[2021-11-27] MEDS: LORazepam (*CRX) 0.5 MG TABLET PO (23:08)
[2021-11-27 23:16] LABS: INR 1.1; Prothrombin Time 14.2 Seconds (11.1-14.7)
[2021-11-27 23:19] LABS: Partial Thromboplastin Time 132.5 SECONDS (22.3-36.8)
[2021-11-27 23:45] LABS: Troponin I 0.056 ng/mL (0.000-0.034)
[2021-11-28] VITALS (18 sets, daily range): BP systolic 112–130; BP diastolic 61–72; PULSE 100–128; RESP 18–20; TEMP 36.6–37.5; O2SAT 94–99
--- NOTE | 2021-11-28 | ECHO_ITS ---
Patient Info Name: Joshua Gray Age: 71 years : 1950 Gender: Male Ht: 69 in Wt: 196 lbs BSA: 2.10 m2 HR: 104 bpm BP: 118 / 71 mmHg Heart Rhythm: Sinus Rhythm Exam Date: 11/28/2021 9:46 AM Exam Location: [facility] Patient Status: Inpatient Admit Date: 11/27/2021 Staff Ordering Physician: Heaven Jimenes NP [employer] Air Land Officer: Vazquez Andersen RDCS, RT Attending Provider: Buster Xiong MD Referring Physician: Yudy REEVES; Exam Type: CA echo doppler color flow Study Info Indications I27.82 - Chronic pulmonary embolism Complete two-dimensional, color flow and Doppler transthoracic echocardiogram is performed. Strain analysis performed. Summary 1. Complete two-dimensional, color flow and Doppler transthoracic echocardiogram is performed. 2. Left ventricular chamber dimension is normal. 3. Left ventricular systolic function is normal, estimated at 65-70%. 4. Right ventricular chamber dimension is normal. 5. No stigmata of significant pulmonary hypertension/difficult to comment accurately on PA pressure absence of significant tricuspid regurgitation. Left Ventricle Left ventricular chamber dimension is normal. Left ventricular systolic function is normal, estimated at 65-70%. The left ventricular diastolic function is grade I diastolic dysfunction. Right Ventricle Right ventricular chamber dimension is normal. Left Atria Left atrial chamber dimension is normal. Right Atria Right atrial chamber dimension is normal. Aortic Valve The aortic valve is normal. Pulmonic Valve The pulmonic valve is normal. Mitral Valve The mitral valve has normal leaflets. Tricuspid Valve The tricuspid valve leaflets are normal. There is trace tricuspid valve regurgitation. Pericardium/Pleural The pericardium appears normal. Aorta The aortic root size at the sinus of Valsalva is normal. Left Ventricular Outflow Tract Name Value Normal LVOT 2D LVOT Diameter 2.0 cm LVOT Doppler LVOT Peak Gradient 3 mmHg LVOT Mean Gradient 1 mmHg LVOT VTI 14 cm LVOT VTI/AV VTI Ratio 0.9 LVOT Stroke Volume 46 ml LVOT CO 4.5 l/min LVOT CI 2.1 l/min/m2 Mitral Valve Name Value Normal MV Doppler MV Decel [place] 459 cm/s2 MV PHT 40 ms MV Area (PHT) 5.4 cm2 4.0-5.0 MV Diastolic Function MV E Peak Velocity 64 cm/s MV A Peak Velocity 95 cm/s MV E/A 0.7 MV Decel Time
[2021-11-28 05:37] LABS: Basophils Absolute Auto 0.1 K/mm3 (0.0-0.1); Basophils Percent Auto 0.8 % (0.2-1.2); Eosinophils Absolute Auto 0.4 K/mm3 (0-0.3); Eosinophils Percent Auto 6.8 % (0-4.4); Hematocrit 36.8 % (42.0-52.0); Hemoglobin 12.4 g/dL (14.0-18.0); Immature Granulocyte Absolute 0.02 K/mm3 (0.00-0.031); Immature Granulocyte Percent A 0.3 % (0-0.5); Lymphocytes Absolute Auto 1.36 K/mm3 (0.9-3.2); Lymphocytes Percent Auto 21.7 % (18.3-44.2); Mean Corpuscular HGB Conc 33.7 g/dl (32-36); Mean Corpuscular Hemoglobin 31.3 pg (26-34); Mean Corpuscular Volume 92.9 fl (80-100); Mean Platelet Volume 11.5 fl (7.4-10.4); Monocytes Absolute Auto 0.6 K/mm3 (0.1-0.6); Neutrophils Absolute Auto 3.8 K/mm3 (1.3-6.7); Neutrophils Percent Auto 60.4 % (45.5-73.1); Platelet Count Result 196 k/mm3 (150-375); Red Blood Count 3.96 M/mm3 (4.6-6.20); Red Cell Distribution Width 14.3 % (11.5-14.5); White Blood Count 6.3 K/mm3 (4.5-10.0)
[2021-11-28 05:44] LABS: Lactic Acid Reflex 0.8 mmol/L (0.7-2.0)
[2021-11-28 05:46] LABS: Alanine Aminotransferase 24 U/L (6-50); Albumin Level 3.5 g/dL (3.5-5.1); Alkaline Phosphatase 139 U/L (38-126); Anion Gap 7 mmol/L (8-16); Aspartate Amino Transferase 39 U/L (17-59); Bilirubin,Total 0.4 mg/dL (0.2-1.3); Blood Urea Nitrogen 19 mg/dL (9-20); Calcium 8.7 mg/dL (8.4-10.2); Carbon Dioxide 25 mmol/L (22-30); Chloride 103 mmol/L (98-107); Estimated CRCL calculation 52 ml/min; Estimated Glomerular Filt Rate 55; Glucose 111 mg/dL (65-110); Potassium 3.8 mmol/L (3.4-5.0); Sodium 135 mmol/L (137-145)
[2021-11-28 05:56] LABS: Partial Thromboplastin Time 112.1 SECONDS (22.3-36.8)
[2021-11-28] MEDS: HYDROcodone/acetaminophen (*CRX) 5-325 MG TABLET 1 TAB PO ×3 (06:36→20:06)
[2021-11-28] MEDS: HEPARIN SOD/D5W 100 UNITS/ML 25,000 UNITS/250 ML BAG 10 UNITS IV CONT (09:51)
[2021-11-28] MEDS: allopurinoL 300 MG TABLET PO (10:05)
[2021-11-28] MEDS: LORATADINE 10 MG TABLET PO (10:05)
[2021-11-28] MEDS: hydroCHLOROthiazide 12.5 MG CAPSULE PO (10:05)
[2021-11-28] MEDS: lisinopriL 20 MG TABLET PO (10:05)
[2021-11-28] MEDS: ROSUVASTATIN 10 MG TABLET PO (10:05)
[2021-11-28] MEDS: PANTOPRAZOLE 40 MG TABLET PO (10:05)
[2021-11-28] MEDS: THERAPEUTIC MULTIVITAMINS/MINERALS TAB (*BKC) 1 TABLET PO (10:05)
--- NOTE | 2021-11-28 12:55 | PDONCCN ---
HPI - Date of Consult Date/Time: 11/28/21 12:55 Requesting Physician: Joe Xiong MD Primary Care Provider: Shun Gorman, - Consult Narrative Reason for consult: Likely metastatic pancreatic cancer Narrative: Joshua Gray is a 71 year old male with history of gastroesophageal reflux disease had been dealing with abdominal pain for last 2-3 weeks duration. Patient had a recent EGD done that showed nonerosive reflux disease. He had abdominal MRI done on November 20 that showed 3.7 cm mass of the pancreatic tail concerning for pancreatic carcinoma. There was multiple liver metastasis as well as periportal and peripancreatic lymphadenopathy. CA 125 was performed by the primary care physician that came back more than 1000. He came into the hospital with increasing shortness of breath for last couple of days duration. CTA chest showed bilateral pulmonary embolism with multiple pulmonary and hepatic metastasis. There was bilateral pleural effusion as well as ascites. He denies any weight loss. He has been eating poorly with some abdominal discomfort. Denies any diarrhea. Denies any other new complaints. Review of Systems - Review of Systems All systems reviewed & are unremarkable except as noted in HPI and bel - Neurologic Reports system reviewed and no additional complaints, except as documented, Reports hearing normal, Denies syncope, Denies focal weakness, Denies numbness PMFSH Medical History: Medical History (Last Updated 11/27/21 @ 18:25 by Heaven Jimenes NP) Anxiety Chronic GERD DDD (degenerative disc disease) Gout HTN (hypertension) Hyperlipidemia Obesity Surgical History: Surgical History (Last Updated 11/27/21 @ 17:06 by Heaven Jimenes NP) History of back surgery fusion S/P tonsillectomy Family History: Family History (Last Reviewed 11/27/21 @ 18:25 by Heaven Jimenes NP) Mother CHF (congestive heart failure), NYHA class I Father ESRD (end stage renal disease) - Social History Social History: Social History (Last Updated 11/27/21 @ 18:27 by Heaven Jimenes NP) Alcohol Use: Alcohol intake: current Drinks per week: 14 Substance Use: Substance use: current Substance use type: prescription drug Others: Spiritual care concerns: No Smoking Status: Smoking status: Former smoker Tobacco type: cigarettes Second hand tobacco smoke exposure: No Smoking end date: 01/01/05 Approximate Smoking End Date: 05/25/04 Smoking Pack-years: Smoking packs per day: 2 Smoking cigarettes per day: 40.0 Years smoked: 30 Smoking pack-years: 60.00 Meds Home Medications Medication Instructions Recorded Confirmed Type allopurinol 300 mg tablet 300 mg PO DAILY 10/15/21 11/27/21 History coQ10 (ubiquinol) 200 mg capsule 200 mg PO DAILY 10/15/21 11/27/21 History fexofenadine 180 mg tablet 180 mg PO DAILY 10/15/21 11/27/21 History fluticasone propionate 50 2 spray intranasal DAILY PRN 10/15/21 11/27/21 History mcg/actuation nasal Allergy Symptoms spray,suspension (Flonase Allergy Relief) lisinopril 20 1 tablet PO DAILY 10/15/21 11/27/21 History mg-hydrochlorothiazide 12.5 mg tablet lorazepam 0.5 mg tablet 0.5 mg PO PRN PRN Anxiety 10/15/21 11/27/21 History multivitamin with minerals-folic 1 tablet PO DAILY 10/15/21 11/27/21 History acid 0.4 mg tablet rosuvastatin 10 mg tablet 10 mg PO DAILY 10/15/21 11/27/21 History omeprazole 20 mg capsule,delayed 20 mg PO DAILY 10/25/21 11/27/21 History release Allergies Allergy/AdvReac Type Severity Reaction Status Date / Time amoxicillin Allergy Severe ITCHING, Verified 11/06/21 10:00 DIFFICULTY SWALLOWING adhesive AdvReac Intermediate REDNESS Verified 11/06/21 10:00 bacitracin AdvReac Unknown REDNESS AT Verified 11/06/21 10:00 THE SITE neomycin AdvReac Unknown REDNESS AT Verified 11/06/21 10:00 THE SITE polym
[2021-11-28 13:12] LABS: Partial Thromboplastin Time 50.6 SECONDS (22.3-36.8)
--- NOTE | 2021-11-28 13:55 | PM.IMPN ---
Progress Note: A&P Assessment and Plan (1) Pulmonary emboli: Code(s): I26.99 - Other pulmonary embolism without acute cor pulmonale Status: Acute Assessment and Plan: The patient is currently on a heparin drip. Will do venous Dopplers and an echo. HPI: This is a 71-year-old male patient who has been complaining of abdominal pain for the past 2-3 weeks.? The patient had an EGD which shows nonerosive reflux disease.? Today the patient came in with shortness of breath and dyspnea.? 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 Peripancreatic and periportal lymphadenopathy as well as multiple liver masses are consistent with metastatic disease.? Ultrasound-guided liver biopsy is recommended.? Small pleural effusion right greater than left.? He the patient stated that his primary care doctor was going to review his MRI and discussed it with another radiologist for 2nd opinion.? However the patient felt short of breath that came on all of a sudden this past Thursday.? So the patient decided to come to the emergency room.? CTA pulmonary was read as bilateral pulmonary emboli including saddle embolus on the right.? Multiple pulmonary and hepatic metastatic lesions.? Bilateral pleural effusions right greater than left ascites suspected pancreatic tail mass with suggestion of splenic invasion metastatic pancreatic carcinoma suspected.? The patient was started on a heparin drip.? Interventional Radiology has been consulted for ultrasound-guided liver biopsy.? His H&H is 13.9 and 41.3.? Troponin 0.057.? BNP 655.? Lipase 308 COVID negative.? Patient is being admitted to observation status on the date of service of 11/27/2021, 11/28/2021 interval history: patient presented with shortness of breath is found to have a bilateral pulmonary emboli and saddle emboli patient is being treated with heparin drip, patient was seen by his primary care and CA 19-9 was ordered and was more than 1000, patient remains clinically stable patient was seen by oncologist and ordered ultrasound and guided liver and pancreatic biopsy, also consulted General surgery for MediPort placement and start the chemotherapy patient has agreed with plan, oncologist has ordered repeat CA 19-9 will follow-up will continue to monitor will switch over the patient to Eliquis before discharging home in couple of days. (2) Liver mass: Code(s): R16.0 - Hepatomegaly, not elsewhere classified Status: Acute Assessment and Plan: Patient will be NPO after midnight. Ultrasound-guided biopsy of the liver. (3) Gout: Code(s): M10.9 - Gout, unspecified Status: Acute Assessment and Plan: Continue home medications (4) Anxiety: Code(s): F41.9 - Anxiety disorder, unspecified Status: Chronic Assessment and Plan: Continue with his home medication (5) Chronic GERD: Code(s): K21.9 - Gastro-esophageal reflux disease without esophagitis Status: Acute Assessment and Plan: Continue with PPI (6) Hyperlipidemia: Code(s): E78.5 - Hyperlipidemia, unspecified Status: Acute Assessment and Plan: Continue with home medication (7) HTN (hypertension): Code(s): I10 - Essential (primary) hypertension Status: Acute Assessment and Plan: Continue with home medication Subjective Date/time seen: 11/28/21 13:55 HPI: This is a 71-year-old male patient who has been complaining of abdominal pain for the past 2-3 weeks.? The patient had an EGD which shows nonerosive reflux disease.? Today the patient came in with shortness of breath and dyspnea.? 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 Peripancreatic and periportal lymphadenopathy as well as multiple liver masses are consistent with m
[2021-11-28] MEDS: HEPARIN SODIUM 5,000 UNITS/ML VIAL 6000 UNITS IV PUSH (14:01)
--- NOTE | 2021-11-28 14:30 | PM.CNGS ---
Assessment and Plan Assessment and plan (1) Pancreatic mass: Code(s): K86.89 - Other specified diseases of pancreas Status: Acute Assessment and Plan: Findings on MRI and CTA suggestive of metastatic pancreatic cancer. He is still undergoing work-up for a confirmed diagnosis. Oncology requested placement of a Port-A-Cath for chemotherapy treatment. Spoke with Dr. Broderick, who is okay with this being done as an outpatient considering he is on a heparin drip for his PE and still undergoing further work-up. Description of the procedure, risks, benefits, expected outcomes, and expected recovery were discussed with the patient in detail. All questions were answered. The patient will call our office once discharged to set this up as an outpatient. Thank you for allowing us to see the patient in consultation. (2) Liver mass: Code(s): R16.0 - Hepatomegaly, not elsewhere classified Status: Acute Assessment and Plan: Plan for liver biopsy and paracentesis tomorrow in Radiology. (3) Acute saddle pulmonary embolus: Code(s): I26.92 - Saddle embolus of pulmonary artery without acute cor pulmonale Status: Acute (4) DDD (degenerative disc disease): Status: Acute (5) HTN (hypertension): Code(s): I10 - Essential (primary) hypertension Status: Acute (6) Obesity (BMI 30-39.9): Code(s): E66.9 - Obesity, unspecified Status: Acute Plan I have discussed the patient's case and plan of care with Dr. Munoz. Thank you for allowing us to see the patient in consultation and we will continue to follow along with you. History of Present Illness Consult details Consult date: 11/28/21 Reason for consult: other (Placement of a Port-A-Cath) Requesting physician: Hua Broderick MD Narrative: This is a 71 yo M who presented to the ER with fatigue and SOB x 2 days. He additionally has been having abdominal pain x 2-3 weeks. He was being worked up as an outpatient through his PCP for findings on a MRI on 11/20/21 of a 3.7 cm pancreatic mass with peripancreatic and periportal lymphadenopathy as well as multiple liver masses, concerning for metastatic pancreatic adenocarcinoma. In the ER, CTA showed bilateral pulmonary emboli including saddle embolus on the right, as well as the pancreatic mass with possible splenic invasion. He was admitted to the Hospitalist service and started on an IV Heparin drip. Oncology has been consulted and feels he likely has metastatic pancreatic cancer. They have ordered a liver biopsy and paracentesis to be done in Radiology tomorrow. Oncology consulted our service to request Port-A-Cath placement for expected chemotherapy treatment. The patient is now seen in the IMU. Review of Systems Review of Systems: All systems reviewed & are unremarkable except as noted in HPI and below PMFSH Past Medical History Medical History Anxiety Chronic GERD DDD (degenerative disc disease) Gout HTN (hypertension) Hyperlipidemia Obesity Surgical History Surgical History History of back surgery fusion S/P tonsillectomy Family History Family History Mother CHF (congestive heart failure), NYHA class I Father ESRD (end stage renal disease) Social History Social History Social History: He lives alone. He is . He would like his daughter to be poa. He is retired [employer]. He drinks 1-2 alcoholic beverages a day. He has one child, 1 child code status full code Smoking packs per day: 2 Smoking cigarettes per day: 40.0 Years smoked: 30 Smoking pack-years: 60.00 Smoking status: Former smoker Tobacco type: cigarettes Second hand tobacco smoke exposure: No Smoking end date: 05/25/04 Alcohol intake: current Drinks p
[2021-11-28] MEDS: LORazepam (*CRX) 0.5 MG TABLET PO ×2 (16:09→21:24)
[2021-11-28 20:55] LABS: Partial Thromboplastin Time 108.6 SECONDS (22.3-36.8)
[2021-11-28 20:56] LABS: Albumin Level 3.7 g/dL (3.5-5.1)
[2021-11-29] VITALS (14 sets, daily range): BP systolic 103–149; BP diastolic 49–88; PULSE 97–135; RESP 12–22; TEMP 36.5–37.3; O2SAT 94–100
[2021-11-29 03:26] LABS: Basophils Absolute Auto 0.1 K/mm3 (0.0-0.1); Basophils Percent Auto 0.7 % (0.2-1.2); Eosinophils Absolute Auto 0.4 K/mm3 (0-0.3); Eosinophils Percent Auto 5.5 % (0-4.4); Hematocrit 38.9 % (42.0-52.0); Hemoglobin 12.8 g/dL (14.0-18.0); Immature Granulocyte Absolute 0.02 K/mm3 (0.00-0.031); Immature Granulocyte Percent A 0.3 % (0-0.5); Lymphocytes Absolute Auto 1.32 K/mm3 (0.9-3.2); Lymphocytes Percent Auto 18.5 % (18.3-44.2); Mean Corpuscular HGB Conc 32.9 g/dl (32-36); Mean Corpuscular Hemoglobin 31.2 pg (26-34); Mean Corpuscular Volume 94.9 fl (80-100); Monocytes Absolute Auto 0.7 K/mm3 (0.1-0.6); Monocytes Percent Auto 10.4 % (2.6-8.5); Neutrophils Absolute Auto 4.6 K/mm3 (1.3-6.7); Neutrophils Percent Auto 64.6 % (45.5-73.1); Platelet Count Result 191 k/mm3 (150-375); Red Cell Distribution Width 14.4 % (11.5-14.5); White Blood Count 7.1 K/mm3 (4.5-10.0)
[2021-11-29 03:35] LABS: Alanine Aminotransferase 22 U/L (6-50); Albumin Level 3.7 g/dL (3.5-5.1); Alkaline Phosphatase 129 U/L (38-126); Anion Gap 9 mmol/L (8-16); Aspartate Amino Transferase 37 U/L (17-59); Bilirubin,Total 0.5 mg/dL (0.2-1.3); Blood Urea Nitrogen 16 mg/dL (9-20); Carbon Dioxide 23 mmol/L (22-30); Chloride 102 mmol/L (98-107); Estimated CRCL calculation 52 ml/min; Estimated Glomerular Filt Rate 55; Glucose 117 mg/dL (65-110); Lactate Dehydrogenase 425 U/L (313-618); Magnesium 2.1 mg/dL (1.6-2.3); Potassium 3.8 mmol/L (3.4-5.0); Sodium 134 mmol/L (137-145)
[2021-11-29 03:39] LABS: INR 1.1; Prothrombin Time 13.4 Seconds (11.1-14.7)
[2021-11-29] MEDS: HEPARIN SODIUM 5,000 UNITS/ML VIAL 3000 UNITS IV PUSH (03:57)
[2021-11-29] MEDS: HYDROcodone/acetaminophen (*CRX) 5-325 MG TABLET 1 TAB PO (04:03)
[2021-11-29] MEDS: HYDROcodone/acetaminophen (*CRX) 7.5-325 MG TABLET 1 TAB PO ×3 (08:32→22:46)
[2021-11-29] MEDS: MORPHINE SULFATE (*CRX) 4 MG/ML INJ IV PUSH ×2 (09:03→15:27)
[2021-11-29] MEDS: ROSUVASTATIN 10 MG TABLET PO (09:08)
[2021-11-29] MEDS: PANTOPRAZOLE 40 MG TABLET PO (09:08)
[2021-11-29] MEDS: lisinopriL 20 MG TABLET PO (09:08)
[2021-11-29] MEDS: hydroCHLOROthiazide 12.5 MG CAPSULE PO (09:08)
[2021-11-29] MEDS: LORATADINE 10 MG TABLET PO (11:34)
[2021-11-29] MEDS: THERAPEUTIC MULTIVITAMINS/MINERALS TAB (*BKC) 1 TABLET PO (11:35)
[2021-11-29] MEDS: allopurinoL 300 MG TABLET PO (11:35)
[2021-11-29 11:57] LABS: Partial Thromboplastin Time 29.4 SECONDS (22.3-36.8)
[2021-11-29] MEDS: LORazepam (*CRX) 0.5 MG TABLET PO ×2 (12:37→15:27)
[2021-11-29 13:29] LABS: Appearance Peritoneal Fluid Hazy (Clear); Color Peritoneal Fluid Yellow (Colorless); Eosinophils Peritoneal Fluid 1 %; Lymphocytes Peritoneal Fluid 27 %; Mesothelial Cells Peritoneal Fluid 3 %; Monocytes Peritoneal Fluid 63 %; Neutrophils Peritoneal Fluid 6 % (0-25); Nucleated Cells Peritoneal Flu 1432 /uL (0-500); RBC Peritoneal Fluid 1896 /uL (0-100000); Source Peritoneal Fluid Peritoneal Fluid
--- NOTE | 2021-11-29 15:07 | PM.IMPN ---
Progress Note: A&P Assessment and Plan (1) Pulmonary emboli: Code(s): I26.99 - Other pulmonary embolism without acute cor pulmonale Status: Acute Assessment and Plan: The patient is currently on a heparin drip. Will do venous Dopplers and an echo. HPI: This is a 71-year-old male patient who has been complaining of abdominal pain for the past 2-3 weeks.? The patient had an EGD which shows nonerosive reflux disease.? Today the patient came in with shortness of breath and dyspnea.? 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 Peripancreatic and periportal lymphadenopathy as well as multiple liver masses are consistent with metastatic disease.? Ultrasound-guided liver biopsy is recommended.? Small pleural effusion right greater than left.? He the patient stated that his primary care doctor was going to review his MRI and discussed it with another radiologist for 2nd opinion.? However the patient felt short of breath that came on all of a sudden this past Thursday.? So the patient decided to come to the emergency room.? CTA pulmonary was read as bilateral pulmonary emboli including saddle embolus on the right.? Multiple pulmonary and hepatic metastatic lesions.? Bilateral pleural effusions right greater than left ascites suspected pancreatic tail mass with suggestion of splenic invasion metastatic pancreatic carcinoma suspected.? The patient was started on a heparin drip.? Interventional Radiology has been consulted for ultrasound-guided liver biopsy.? His H&H is 13.9 and 41.3.? Troponin 0.057.? BNP 655.? Lipase 308 COVID negative.? Patient is being admitted to observation status on the date of service of 11/27/2021, 11/28/2021 interval history: patient presented with shortness of breath is found to have a bilateral pulmonary emboli and saddle emboli patient is being treated with heparin drip, patient was seen by his primary care and CA 19-9 was ordered and was more than 1000, patient remains clinically stable patient was seen by oncologist and ordered ultrasound and guided liver and pancreatic biopsy, also consulted General surgery for MediPort placement and start the chemotherapy patient has agreed with plan, oncologist has ordered repeat CA 19-9 will follow-up will continue to monitor will switch over the patient to Eliquis before discharging home in couple of days. 11/29/2021 interval history: patient presented with shortness of breath is found to have a bilateral pulmonary emboli and saddle emboli patient is being treated with heparin drip, patient was seen by his primary care and CA 19-9 was ordered and was more than 1000, patient remains clinically stable patient was seen by oncologist and ordered ultrasound and guided liver and pancreatic biopsy which was done today, also consulted General surgery for MediPort placement which will be done as an outpatient and to start the chemotherapy patient has agreed with plan, oncologist has ordered repeat CA 19-9 will follow-up will continue to monitor will switch over the patient to Eliquis before discharging home in couple of days. Patient asites fluids showed elevated Nucleated cells and concerning for SBP, will start patient on Cefoteton and flagyl, will dicussed with pharmacy ID and follow up on culture and further recommendation to follow. (2) Liver mass: Code(s): R16.0 - Hepatomegaly, not elsewhere classified Status: Acute Assessment and Plan: Patient will be NPO after midnight. Ultrasound-guided biopsy of the liver. (3) Gout: Code(s): M10.9 - Gout, unspecified Status: Acute Assessment and Plan: Continue home medications (4) Anxiety: Code(s): F41.9 - Anxiety disorder, unspecified Status: Chronic Assessment and Plan: Continue with his home medication (5) Chronic GERD: Code(s): K21.9 - Gastro-esophageal reflux di
[2021-11-29 16:26] LABS: Partial Thromboplastin Time 29.7 SECONDS (22.3-36.8)
[2021-11-29] MEDS: HEPARIN SOD/D5W 100 UNITS/ML 25,000 UNITS/250 ML BAG 16 UNITS IV CONT (17:34)
[2021-11-29] MEDS: HEPARIN SODIUM 5,000 UNITS/ML VIAL 6000 UNITS IV PUSH (17:34)
[2021-11-29] MEDS: metroNIDAZOLE 500 MG/ISO 100ML 500 MG/100 ML BAG 100 MG IVPB (17:47)
[2021-11-29] MEDS: cefoTEtan DISODIUM INJ 2 GM in DEXTROSE 5% IN WATER 50 ML IVPB (20:35)
[2021-11-29 22:22] LABS: Partial Thromboplastin Time 191.3 SECONDS (22.3-36.8)
[2021-11-30] MEDS: metroNIDAZOLE 500 MG/ISO 100ML 500 MG/100 ML BAG 100 MG IVPB ×3 (01:06→18:16)
[2021-11-30 04:00] VITALS: BP 107/61; PULSE 80; RESP 20; TEMP 36.3; O2SAT 99
[2021-11-30 05:24] LABS: Basophils Absolute Auto 0.1 K/mm3 (0.0-0.1); Basophils Percent Auto 0.8 % (0.2-1.2); Eosinophils Absolute Auto 0.4 K/mm3 (0-0.3); Eosinophils Percent Auto 5.1 % (0-4.4); Hematocrit 38.7 % (42.0-52.0); Hemoglobin 13.1 g/dL (14.0-18.0); Immature Granulocyte Absolute 0.04 K/mm3 (0.00-0.031); Immature Granulocyte Percent A 0.6 % (0-0.5); Lymphocytes Absolute Auto 1.32 K/mm3 (0.9-3.2); Lymphocytes Percent Auto 18.5 % (18.3-44.2); Mean Corpuscular HGB Conc 33.9 g/dl (32-36); Mean Corpuscular Hemoglobin 31.7 pg (26-34); Mean Corpuscular Volume 93.7 fl (80-100); Mean Platelet Volume 11.3 fl (7.4-10.4); Monocytes Absolute Auto 0.8 K/mm3 (0.1-0.6); Monocytes Percent Auto 11.5 % (2.6-8.5); Neutrophils Absolute Auto 4.5 K/mm3 (1.3-6.7); Neutrophils Percent Auto 63.5 % (45.5-73.1); Platelet Count Result 227 k/mm3 (150-375); Red Blood Count 4.13 M/mm3 (4.6-6.20); Red Cell Distribution Width 14.4 % (11.5-14.5); White Blood Count 7.1 K/mm3 (4.5-10.0)
[2021-11-30 05:31] LABS: Alanine Aminotransferase 26 U/L (6-50); Albumin Level 3.4 g/dL (3.5-5.1); Alkaline Phosphatase 130 U/L (38-126); Anion Gap 7 mmol/L (8-16); Aspartate Amino Transferase 46 U/L (17-59); Bilirubin,Total 0.4 mg/dL (0.2-1.3); Blood Urea Nitrogen 22 mg/dL (9-20); Calcium 8.7 mg/dL (8.4-10.2); Carbon Dioxide 26 mmol/L (22-30); Chloride 100 mmol/L (98-107); Estimated CRCL calculation 38 ml/min; Estimated Glomerular Filt Rate 37; Glucose 116 mg/dL (65-110); Potassium 4.1 mmol/L (3.4-5.0); Sodium 133 mmol/L (137-145)
[2021-11-30 07:50] VITALS: BP 108/67; PULSE 107; RESP 22; TEMP 37.5; O2SAT 96
[2021-11-30 07:54] LABS: Partial Thromboplastin Time 74.3 SECONDS (22.3-36.8)
[2021-11-30] MEDS: cefoTEtan DISODIUM INJ 2 GM in DEXTROSE 5% IN WATER 50 ML IVPB ×2 (08:43→21:50)
[2021-11-30] MEDS: PANTOPRAZOLE 40 MG TABLET PO (08:44)
[2021-11-30] MEDS: hydroCHLOROthiazide 12.5 MG CAPSULE PO (08:45)
[2021-11-30] MEDS: allopurinoL 300 MG TABLET PO (08:45)
[2021-11-30] MEDS: ROSUVASTATIN 10 MG TABLET PO (08:46)
[2021-11-30] MEDS: lisinopriL 20 MG TABLET PO (08:46)
[2021-11-30] MEDS: THERAPEUTIC MULTIVITAMINS/MINERALS TAB (*BKC) 1 TABLET PO (08:46)
[2021-11-30] MEDS: MORPHINE SULFATE (*CRX) 4 MG/ML INJ IV PUSH (08:47)
[2021-11-30] MEDS: LORazepam (*CRX) 0.5 MG TABLET PO (10:33)
[2021-11-30 11:42] LABS: Partial Thromboplastin Time 71.2 SECONDS (22.3-36.8)
[2021-11-30] MEDS: HEPARIN SOD/D5W 100 UNITS/ML 25,000 UNITS/250 ML BAG 14 UNITS IV CONT (11:52)
--- NOTE | 2021-11-30 13:50 | PM.IMPN ---
Progress Note: A&P Assessment and Plan (1) Pulmonary emboli: Code(s): I26.99 - Other pulmonary embolism without acute cor pulmonale Status: Acute Assessment and Plan: The patient is currently on a heparin drip. Will do venous Dopplers and an echo. HPI: This is a 71-year-old male patient who has been complaining of abdominal pain for the past 2-3 weeks.? The patient had an EGD which shows nonerosive reflux disease.? Today the patient came in with shortness of breath and dyspnea.? 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 Peripancreatic and periportal lymphadenopathy as well as multiple liver masses are consistent with metastatic disease.? Ultrasound-guided liver biopsy is recommended.? Small pleural effusion right greater than left.? He the patient stated that his primary care doctor was going to review his MRI and discussed it with another radiologist for 2nd opinion.? However the patient felt short of breath that came on all of a sudden this past Thursday.? So the patient decided to come to the emergency room.? CTA pulmonary was read as bilateral pulmonary emboli including saddle embolus on the right.? Multiple pulmonary and hepatic metastatic lesions.? Bilateral pleural effusions right greater than left ascites suspected pancreatic tail mass with suggestion of splenic invasion metastatic pancreatic carcinoma suspected.? The patient was started on a heparin drip.? Interventional Radiology has been consulted for ultrasound-guided liver biopsy.? His H&H is 13.9 and 41.3.? Troponin 0.057.? BNP 655.? Lipase 308 COVID negative.? Patient is being admitted to observation status on the date of service of 11/27/2021, 11/28/2021 interval history: patient presented with shortness of breath is found to have a bilateral pulmonary emboli and saddle emboli patient is being treated with heparin drip, patient was seen by his primary care and CA 19-9 was ordered and was more than 1000, patient remains clinically stable patient was seen by oncologist and ordered ultrasound and guided liver and pancreatic biopsy, also consulted General surgery for MediPort placement and start the chemotherapy patient has agreed with plan, oncologist has ordered repeat CA 19-9 will follow-up will continue to monitor will switch over the patient to Eliquis before discharging home in couple of days. 11/29/2021 interval history: patient presented with shortness of breath is found to have a bilateral pulmonary emboli and saddle emboli patient is being treated with heparin drip, patient was seen by his primary care and CA 19-9 was ordered and was more than 1000, patient remains clinically stable patient was seen by oncologist and ordered ultrasound and guided liver and pancreatic biopsy which was done today, also consulted General surgery for MediPort placement which will be done as an outpatient and to start the chemotherapy patient has agreed with plan, oncologist has ordered repeat CA 19-9 will follow-up will continue to monitor will switch over the patient to Eliquis before discharging home in couple of days. Patient asites fluids showed elevated Nucleated cells and concerning for SBP, will start patient on Cefoteton and flagyl, will dicussed with pharmacy ID and follow up on culture and further recommendation to follow. 11/30/2021 interval history: patient presented with shortness of breath is found to have a bilateral pulmonary emboli and saddle emboli patient is being treated with heparin drip, patient was seen by his primary care and CA 19-9 was ordered and was more than 1000, patient remains clinically stable patient was seen by oncologist and ordered ultrasound and guided liver and pancreatic biopsy which was done today, also consulted General surgery for MediPort placement which will be done as an outpatient and to start the chemotherapy patient has agreed with arianne
[2021-11-30 14:09] VITALS: BMI 29.5
[2021-11-30 14:10] VITALS: BP 116/63; PULSE 127; RESP 24; TEMP 35.7; O2SAT 97
[2021-11-30] MEDS: HYDROcodone/acetaminophen (*CRX) 7.5-325 MG TABLET 1 TAB PO (18:15)
[2021-11-30 19:42] VITALS: BP 110/48; PULSE 108; RESP 19; O2SAT 95
[2021-11-30] MEDS: SENNOSIDES 8.6 MG TABLET PO (21:48)
[2021-12-01] MEDS: HYDROcodone/acetaminophen (*CRX) 7.5-325 MG TABLET 1 TAB PO ×3 (01:27→16:42)
[2021-12-01] MEDS: metroNIDAZOLE 500 MG/ISO 100ML 500 MG/100 ML BAG 100 MG IVPB ×3 (01:35→16:36)
[2021-12-01 05:57] VITALS: BP 105/57; PULSE 106; RESP 20; TEMP 36.9; O2SAT 92
[2021-12-01 06:00] LABS: Basophils Percent Auto 0.5 % (0.2-1.2); Eosinophils Absolute Auto 0.4 K/mm3 (0-0.3); Eosinophils Percent Auto 4.6 % (0-4.4); Hemoglobin 12.8 g/dL (14.0-18.0); Immature Granulocyte Absolute 0.03 K/mm3 (0.00-0.031); Immature Granulocyte Percent A 0.4 % (0-0.5); Lymphocytes Absolute Auto 1.08 K/mm3 (0.9-3.2); Lymphocytes Percent Auto 14.2 % (18.3-44.2); Mean Corpuscular HGB Conc 33.7 g/dl (32-36); Mean Corpuscular Hemoglobin 31.4 pg (26-34); Mean Corpuscular Volume 93.4 fl (80-100); Mean Platelet Volume 11.1 fl (7.4-10.4); Monocytes Absolute Auto 0.9 K/mm3 (0.1-0.6); Monocytes Percent Auto 11.8 % (2.6-8.5); Neutrophils Absolute Auto 5.2 K/mm3 (1.3-6.7); Neutrophils Percent Auto 68.5 % (45.5-73.1); Platelet Count Result 224 k/mm3 (150-375); Red Blood Count 4.07 M/mm3 (4.6-6.20); Red Cell Distribution Width 14.3 % (11.5-14.5); White Blood Count 7.6 K/mm3 (4.5-10.0)
[2021-12-01 06:10] LABS: Alanine Aminotransferase 34 U/L (6-50); Albumin Level 3.4 g/dL (3.5-5.1); Alkaline Phosphatase 146 U/L (38-126); Anion Gap 6 mmol/L (8-16); Aspartate Amino Transferase 57 U/L (17-59); Bilirubin,Total 0.4 mg/dL (0.2-1.3); Blood Urea Nitrogen 19 mg/dL (9-20); Calcium 8.6 mg/dL (8.4-10.2); Carbon Dioxide 25 mmol/L (22-30); Chloride 100 mmol/L (98-107); Estimated CRCL calculation 43 ml/min; Estimated Glomerular Filt Rate 50; Glucose 123 mg/dL (65-110); Potassium 3.7 mmol/L (3.4-5.0); Sodium 131 mmol/L (137-145)
[2021-12-01 06:14] LABS: Partial Thromboplastin Time 81.5 SECONDS (22.3-36.8)
[2021-12-01] MEDS: HEPARIN SOD/D5W 100 UNITS/ML 25,000 UNITS/250 ML BAG 14 UNITS IV CONT (06:24)
[2021-12-01] MEDS: allopurinoL 300 MG TABLET PO (08:40)
[2021-12-01] MEDS: cefoTEtan DISODIUM INJ 2 GM in DEXTROSE 5% IN WATER 50 ML IVPB ×2 (08:41→20:04)
[2021-12-01] MEDS: ROSUVASTATIN 10 MG TABLET PO (08:41)
[2021-12-01] MEDS: lisinopriL 20 MG TABLET PO (08:41)
[2021-12-01] MEDS: PANTOPRAZOLE 40 MG TABLET PO (08:41)
[2021-12-01] MEDS: THERAPEUTIC MULTIVITAMINS/MINERALS TAB (*BKC) 1 TABLET PO (08:41)
[2021-12-01] MEDS: hydroCHLOROthiazide 12.5 MG CAPSULE PO (08:41)
[2021-12-01] MEDS: LORazepam (*CRX) 0.5 MG TABLET PO (12:23)
[2021-12-01 17:00] VITALS: BP 108/67; PULSE 117; RESP 20; TEMP 35.9; O2SAT 92
[2021-12-01] MEDS: SENNOSIDES 8.6 MG TABLET PO (20:04)
[2021-12-01] MEDS: DOCUSATE SODIUM 100 MG CAPSULE 300 MG PO (20:04)
[2021-12-01 22:00] VITALS: BP 117/57; PULSE 104; RESP 18; TEMP 37.2; O2SAT 96
[2021-12-01 22:36] VITALS: O2SAT 97
[2021-12-02] MEDS: HYDROcodone/acetaminophen (*CRX) 7.5-325 MG TABLET 1 TAB PO ×4 (00:17→19:30)
[2021-12-02] MEDS: metroNIDAZOLE 500 MG/ISO 100ML 500 MG/100 ML BAG 100 MG IVPB (00:17)
[2021-12-02] MEDS: HEPARIN SOD/D5W 100 UNITS/ML 25,000 UNITS/250 ML BAG 14 UNITS IV CONT (00:18)
[2021-12-02 05:54] LABS: Basophils Absolute Auto 0.1 K/mm3 (0.0-0.1); Basophils Percent Auto 0.7 % (0.2-1.2); Eosinophils Absolute Auto 0.4 K/mm3 (0-0.3); Eosinophils Percent Auto 5.4 % (0-4.4); Hematocrit 36.9 % (42.0-52.0); Hemoglobin 12.3 g/dL (14.0-18.0); Immature Granulocyte Absolute 0.04 K/mm3 (0.00-0.031); Immature Granulocyte Percent A 0.6 % (0-0.5); Lymphocytes Absolute Auto 1.08 K/mm3 (0.9-3.2); Lymphocytes Percent Auto 15.7 % (18.3-44.2); Mean Corpuscular HGB Conc 33.3 g/dl (32-36); Mean Corpuscular Volume 92.9 fl (80-100); Mean Platelet Volume 11.1 fl (7.4-10.4); Monocytes Absolute Auto 0.8 K/mm3 (0.1-0.6); Monocytes Percent Auto 12.2 % (2.6-8.5); Neutrophils Absolute Auto 4.5 K/mm3 (1.3-6.7); Neutrophils Percent Auto 65.4 % (45.5-73.1); Platelet Count Result 240 k/mm3 (150-375); Red Blood Count 3.97 M/mm3 (4.6-6.20); Red Cell Distribution Width 14.3 % (11.5-14.5); White Blood Count 6.9 K/mm3 (4.5-10.0)
[2021-12-02 06:00] VITALS: BP 106/64; PULSE 102; RESP 18; TEMP 37; O2SAT 96
[2021-12-02 06:04] LABS: Alanine Aminotransferase 31 U/L (6-50); Albumin Level 3.2 g/dL (3.5-5.1); Alkaline Phosphatase 147 U/L (38-126); Anion Gap 6 mmol/L (8-16); Aspartate Amino Transferase 49 U/L (17-59); Bilirubin,Total 0.4 mg/dL (0.2-1.3); Blood Urea Nitrogen 18 mg/dL (9-20); Calcium 8.9 mg/dL (8.4-10.2); Carbon Dioxide 27 mmol/L (22-30); Chloride 99 mmol/L (98-107); Estimated CRCL calculation 48 ml/min; Estimated Glomerular Filt Rate 50; Glucose 117 mg/dL (65-110); Potassium 3.9 mmol/L (3.4-5.0); Sodium 132 mmol/L (137-145)
[2021-12-02 06:09] LABS: Partial Thromboplastin Time 94.2 SECONDS (22.3-36.8)
[2021-12-02] MEDS: LORazepam (*CRX) 0.5 MG TABLET PO ×2 (08:09→19:30)
[2021-12-02] MEDS: cefoTEtan DISODIUM INJ 2 GM in DEXTROSE 5% IN WATER 50 ML IVPB (08:10)
[2021-12-02] MEDS: lisinopriL 20 MG TABLET PO (08:11)
[2021-12-02] MEDS: THERAPEUTIC MULTIVITAMINS/MINERALS TAB (*BKC) 1 TABLET PO (08:11)
[2021-12-02] MEDS: hydroCHLOROthiazide 12.5 MG CAPSULE PO (08:11)
[2021-12-02] MEDS: allopurinoL 300 MG TABLET PO (08:11)
[2021-12-02] MEDS: PANTOPRAZOLE 40 MG TABLET PO (08:11)
[2021-12-02] MEDS: ROSUVASTATIN 10 MG TABLET PO (08:11)
--- NOTE | 2021-12-02 13:00 | WPDANESEPPF ---
Anes - Initial Pre Proc Eval Procedure: Operation Date: 12/03/21 12:00 Proposed Procedures p Insertion Dionisio Cath - Rosemarie Munoz MD Date/Time: 12/02/21 13:00 Surgeon: Joe Xiong MD Pre Op Diagnosis: Pulmonary embolism/pancreatic cancer Patient Data Age: 71 Gender: M Height: 1.73 m Weight: 89 kg Last Vital Signs Temp 37.0 C 12/02/21 06:00 Pulse 102 H 12/02/21 06:00 Resp 18 12/02/21 06:00 BP 106/64 12/02/21 06:00 Pulse Ox 96 12/02/21 06:00 O2 Del Method Room Air 12/02/21 07:58 O2 Flow Rate 2 11/29/21 04:00 Allergies Allergy/AdvReac Type Severity Reaction Status Date / Time amoxicillin Allergy Severe ITCHING, Verified 11/06/21 10:00 DIFFICULTY SWALLOWING adhesive AdvReac Intermediate REDNESS Verified 11/06/21 10:00 bacitracin AdvReac Unknown REDNESS AT Verified 11/06/21 10:00 THE SITE neomycin AdvReac Unknown REDNESS AT Verified 11/06/21 10:00 THE SITE polymyxin B AdvReac Unknown REDNESS AT Verified 11/06/21 10:00 THE SITE Home Medications Medication Instructions Recorded Confirmed Type allopurinol 300 mg tablet 300 mg PO DAILY 10/15/21 11/27/21 History coQ10 (ubiquinol) 200 mg capsule 200 mg PO DAILY 10/15/21 11/27/21 History fexofenadine 180 mg tablet 180 mg PO DAILY 10/15/21 11/27/21 History fluticasone propionate 50 2 spray intranasal DAILY PRN 10/15/21 11/27/21 History mcg/actuation nasal Allergy Symptoms spray,suspension (Flonase Allergy Relief) lisinopril 20 1 tablet PO DAILY 10/15/21 11/27/21 History mg-hydrochlorothiazide 12.5 mg tablet lorazepam 0.5 mg tablet 0.5 mg PO PRN PRN Anxiety 10/15/21 11/27/21 History multivitamin with minerals-folic 1 tablet PO DAILY 10/15/21 11/27/21 History acid 0.4 mg tablet rosuvastatin 10 mg tablet 10 mg PO DAILY 10/15/21 11/27/21 History omeprazole 20 mg capsule,delayed 20 mg PO DAILY 10/25/21 11/27/21 History release Laboratory Tests 12/02/21 12/02/21 12/02/21 05:35 05:35 05:35 WBC 6.9 K/mm3 K/mm3 (4.5-10.0) RBC 3.97 M/mm3 L M/mm3 (4.6-6.20) Hgb 12.3 g/dL L g/dL (14.0-18.0) Hct 36.9 % L % (42.0-52.0) MCV 92.9 fl fl (80-100) MCH 31.0 pg pg (26-34) MCHC 33.3 g/dl g/dl (32-36) RDW 14.3 % % (11.5-14.5) Plt Count 240 k/mm3 k/mm3 (150-375) MPV 11.1 fl H fl (7.4-10.4) Immature Gran % (Auto) 0.6 % H % (0-0.5) Neut % (Auto) 65.4 % % (45.5-73.1) Lymph % (Auto) 15.7 % L % (18.3-44.2) [place] % (Auto) 12.2 % H % (2.6-8.5) Eos % (Auto) 5.4 % H % (0-4.4) Baso % (Auto) 0.7 % % (0.2-1.2) Lymph # (Auto) 1.08 K/mm3 K/mm3 (0.9-3.2) [place] # (Auto) 0.8 K/mm3 H K/mm3 (0.1-0.6) Eos # (Auto) 0.4 K/mm3 H K/mm3 (0-0.3) Baso # (Auto) 0.1 K/mm3 K/mm3 (0.0-0.1) Abs Immat Gran (auto) 0.04 K/mm3 H K/mm3 (0.00-0.031) Absolute Neuts (auto) 4.5 K/mm3 K/mm3 (1.3-6.7) Absolute Nucleated RBC 0.0 K/mm3 K/mm3 (0.0-0.012) Nucleated RBC % 0.0 % % (0.0-0.2) APTT 94.2 SECONDS H SECONDS (22.3-36.8) Sodium 132 mmol/L L mmol/L (137-145) Potassium 3.9 mmol/L mmol/L (3.4-5.0) Chloride 99 mmol/L mmol/L (98-107) Carbon Dioxide 27 mmol/L mmol/L (22-30) Anion Gap 6 mmol/L L mmol/L (8-16) BUN 18 mg/dL mg/dL (9-20) Creatinine 1.40 mg/dL H mg/dL (0.7-1.3) Estim Creat Clear Calc 48 ml/min ml/min Estimated GFR 50 L (59 - ) Glucose 117 mg/dL H mg/dL (65-110) Calcium 8.9 mg/dL mg/dL (8.4-10.2) Magnesium 2.0 mg/dL mg/dL (1.6-2.3) Total Bilirubin 0.4 mg/dL mg/dL (0.2-1.3) AST 49 U/L U/L (17-59) ALT 31 U/L U/L (6-50) Alkaline Phosphatase 147 U/L H U/L
[2021-12-02 13:50] VITALS: O2SAT 98
[2021-12-02 16:00] VITALS: BP 114/60; PULSE 103; RESP 16; TEMP 37.1; O2SAT 94
[2021-12-02 20:00] VITALS: PULSE 103; RESP 16; O2SAT 94
[2021-12-02] MEDS: cefTRIAXone 2 GM in SODIUM CHLORIDE 0.9% IV 100 ML 200 ML IVPB (20:47)
[2021-12-02 22:00] VITALS: BP 105/58; PULSE 110; RESP 18; TEMP 37.3; O2SAT 98
[2021-12-03] MEDS: HYDROcodone/acetaminophen (*CRX) 7.5-325 MG TABLET 1 TAB PO ×3 (03:59→17:07)
[2021-12-03 05:40] LABS: Basophils Percent Auto 0.5 % (0.2-1.2); Eosinophils Absolute Auto 0.3 K/mm3 (0-0.3); Eosinophils Percent Auto 3.6 % (0-4.4); Hematocrit 35.4 % (42.0-52.0); Immature Granulocyte Absolute 0.03 K/mm3 (0.00-0.031); Immature Granulocyte Percent A 0.4 % (0-0.5); Lymphocytes Absolute Auto 0.87 K/mm3 (0.9-3.2); Mean Corpuscular HGB Conc 33.9 g/dl (32-36); Mean Corpuscular Hemoglobin 31.2 pg (26-34); Mean Corpuscular Volume 91.9 fl (80-100); Mean Platelet Volume 11.1 fl (7.4-10.4); Monocytes Absolute Auto 0.9 K/mm3 (0.1-0.6); Monocytes Percent Auto 12.2 % (2.6-8.5); Neutrophils Absolute Auto 5.2 K/mm3 (1.3-6.7); Neutrophils Percent Auto 71.3 % (45.5-73.1); Platelet Count Result 241 k/mm3 (150-375); Red Blood Count 3.85 M/mm3 (4.6-6.20); Red Cell Distribution Width 14.5 % (11.5-14.5); White Blood Count 7.3 K/mm3 (4.5-10.0)
[2021-12-03 05:54] LABS: Alanine Aminotransferase 26 U/L (6-50); Albumin Level 3.2 g/dL (3.5-5.1); Alkaline Phosphatase 148 U/L (38-126); Anion Gap 4 mmol/L (8-16); Aspartate Amino Transferase 47 U/L (17-59); Bilirubin,Total 0.3 mg/dL (0.2-1.3); Blood Urea Nitrogen 18 mg/dL (9-20); Calcium 8.5 mg/dL (8.4-10.2); Carbon Dioxide 27 mmol/L (22-30); Chloride 97 mmol/L (98-107); Estimated CRCL calculation 48 ml/min; Estimated Glomerular Filt Rate 50; Glucose 125 mg/dL (65-110); Magnesium 1.9 mg/dL (1.6-2.3); Partial Thromboplastin Time 93.4 SECONDS (22.3-36.8); Potassium 3.3 mmol/L (3.4-5.0); Sodium 128 mmol/L (137-145)
[2021-12-03 05:55] VITALS: BP 113/58; PULSE 104; RESP 18; TEMP 36.9; O2SAT 93
[2021-12-03] MEDS: ROSUVASTATIN 10 MG TABLET PO (08:55)
[2021-12-03] MEDS: THERAPEUTIC MULTIVITAMINS/MINERALS TAB (*BKC) 1 TABLET PO (08:55)
[2021-12-03] MEDS: hydroCHLOROthiazide 12.5 MG CAPSULE PO (08:55)
[2021-12-03] MEDS: lisinopriL 20 MG TABLET PO (08:55)
[2021-12-03] MEDS: PANTOPRAZOLE 40 MG TABLET PO (08:56)
[2021-12-03] MEDS: allopurinoL 300 MG TABLET PO (08:56)
[2021-12-03] MEDS: LORazepam (*CRX) 0.5 MG TABLET PO ×2 (09:02→20:01)
[2021-12-03] MEDS: HEPARIN SOD/D5W 100 UNITS/ML 25,000 UNITS/250 ML BAG 14 UNITS IV CONT (12:50)
[2021-12-03] MEDS: POTASSIUM CHLORIDE 20 MEQ TABLET 40 MEQ PO (12:51)
[2021-12-03 14:00] VITALS: BP 103/48; PULSE 112; RESP 18; TEMP 37; O2SAT 97
[2021-12-03 15:24] VITALS: O2SAT 98
[2021-12-03 16:51] LABS: Glucose Peritoneal Fluid 105 mg/dL; LDH Peritoneal Fluid 363 U/L (<63); Total Protein Peritoneal Fluid 4.4 g/dL
[2021-12-03 19:41] VITALS: BP 112/58; PULSE 107; RESP 18; TEMP 36.9; O2SAT 92
[2021-12-03] MEDS: cefTRIAXone 2 GM in SODIUM CHLORIDE 0.9% IV 100 ML 200 ML IVPB (20:01)
[2021-12-03] MEDS: SENNOSIDES 8.6 MG TABLET PO (20:05)
[2021-12-03] MEDS: DOCUSATE SODIUM 100 MG CAPSULE 300 MG PO (20:09)
[2021-12-04] MEDS: HYDROcodone/acetaminophen (*CRX) 7.5-325 MG TABLET 1 TAB PO ×4 (00:42→18:34)
[2021-12-04 05:39] VITALS: BP 120/66; PULSE 100; RESP 18; TEMP 36.6; O2SAT 94
[2021-12-04 05:47] LABS: Basophils Absolute Auto 0.1 K/mm3 (0.0-0.1); Basophils Percent Auto 0.8 % (0.2-1.2); Eosinophils Absolute Auto 0.3 K/mm3 (0-0.3); Eosinophils Percent Auto 3.9 % (0-4.4); Hematocrit 37.1 % (42.0-52.0); Hemoglobin 12.3 g/dL (14.0-18.0); Immature Granulocyte Absolute 0.04 K/mm3 (0.00-0.031); Immature Granulocyte Percent A 0.6 % (0-0.5); Lymphocytes Absolute Auto 1.05 K/mm3 (0.9-3.2); Lymphocytes Percent Auto 16.5 % (18.3-44.2); Mean Corpuscular HGB Conc 33.2 g/dl (32-36); Mean Corpuscular Hemoglobin 30.9 pg (26-34); Mean Corpuscular Volume 93.2 fl (80-100); Mean Platelet Volume 11.3 fl (7.4-10.4); Monocytes Absolute Auto 0.8 K/mm3 (0.1-0.6); Monocytes Percent Auto 12.4 % (2.6-8.5); Neutrophils Absolute Auto 4.2 K/mm3 (1.3-6.7); Neutrophils Percent Auto 65.8 % (45.5-73.1); Platelet Count Result 265 k/mm3 (150-375); Red Blood Count 3.98 M/mm3 (4.6-6.20); Red Cell Distribution Width 14.5 % (11.5-14.5); White Blood Count 6.4 K/mm3 (4.5-10.0)
[2021-12-04 05:52] LABS: Partial Thromboplastin Time 86.3 SECONDS (22.3-36.8)
[2021-12-04 05:56] LABS: Alanine Aminotransferase 23 U/L (6-50); Albumin Level 3.3 g/dL (3.5-5.1); Alkaline Phosphatase 155 U/L (38-126); Anion Gap 4 mmol/L (8-16); Aspartate Amino Transferase 42 U/L (17-59); Bilirubin,Total 0.3 mg/dL (0.2-1.3); Blood Urea Nitrogen 18 mg/dL (9-20); Calcium 8.7 mg/dL (8.4-10.2); Carbon Dioxide 29 mmol/L (22-30); Chloride 97 mmol/L (98-107); Estimated CRCL calculation 56 ml/min; Estimated Glomerular Filt Rate 60; Glucose 118 mg/dL (65-110); Magnesium 1.9 mg/dL (1.6-2.3); Potassium 3.8 mmol/L (3.4-5.0); Sodium 130 mmol/L (137-145)
[2021-12-04] MEDS: HEPARIN SOD/D5W 100 UNITS/ML 25,000 UNITS/250 ML BAG 14 UNITS IV CONT (06:44)
[2021-12-04] MEDS: ROSUVASTATIN 10 MG TABLET PO (09:15)
[2021-12-04] MEDS: hydroCHLOROthiazide 12.5 MG CAPSULE PO (09:15)
[2021-12-04] MEDS: THERAPEUTIC MULTIVITAMINS/MINERALS TAB (*BKC) 1 TABLET PO (09:15)
[2021-12-04] MEDS: PANTOPRAZOLE 40 MG TABLET PO (09:15)
[2021-12-04] MEDS: lisinopriL 20 MG TABLET PO (09:15)
[2021-12-04] MEDS: allopurinoL 300 MG TABLET PO (09:15)
[2021-12-04 11:58] LABS: Albumin Peritoneal Fluid 2.9 g/dL
--- NOTE | 2021-12-04 13:27 | PM.IMPN ---
Progress Note: A&P Assessment and Plan (1) Pulmonary emboli: Code(s): I26.99 - Other pulmonary embolism without acute cor pulmonale Status: Acute Assessment and Plan: On heparin drip. Plan to switch to Eliquis after port placement. Venous duplex positive for DVT as well (2) Liver mass: Code(s): R16.0 - Hepatomegaly, not elsewhere classified Status: Acute Assessment and Plan: status post biopsy. Suggestive of metastatic pancreatic cancer mediport placement planned (3) Gout: Code(s): M10.9 - Gout, unspecified Status: Acute Assessment and Plan: Continue home medications (4) Anxiety: Code(s): F41.9 - Anxiety disorder, unspecified Status: Chronic Assessment and Plan: Continue with his home medication (5) Chronic GERD: Code(s): K21.9 - Gastro-esophageal reflux disease without esophagitis Status: Acute Assessment and Plan: Continue with PPI (6) Hyperlipidemia: Code(s): E78.5 - Hyperlipidemia, unspecified Status: Acute Assessment and Plan: Continue with home medication (7) HTN (hypertension): Code(s): I10 - Essential (primary) hypertension Status: Acute Assessment and Plan: Continue with home medication Subjective Date/time seen: 12/04/21 13:27 Interval history: HPI: This is a 71-year-old male patient who has been complaining of abdominal pain for the past 2-3 weeks.? The patient had an EGD which shows nonerosive reflux disease.? Today the patient came in with shortness of breath and dyspnea.? 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 Peripancreatic and periportal lymphadenopathy as well as multiple liver masses are consistent with metastatic disease.? Ultrasound-guided liver biopsy is recommended.? Small pleural effusion right greater than left.? He the patient stated that his primary care doctor was going to review his MRI and discussed it with another radiologist for 2nd opinion.? However the patient felt short of breath that came on all of a sudden this past Thursday.? So the patient decided to come to the emergency room.? CTA pulmonary was read as bilateral pulmonary emboli including saddle embolus on the right.? Multiple pulmonary and hepatic metastatic lesions.? Bilateral pleural effusions right greater than left ascites suspected pancreatic tail mass with suggestion of splenic invasion metastatic pancreatic carcinoma suspected.? The patient was started on a heparin drip.? Interventional Radiology has been consulted for ultrasound-guided liver biopsy.? His H&H is 13.9 and 41.3.? Troponin 0.057.? BNP 655.? Lipase 308 COVID negative.? Patient is being admitted to observation status on the date of service of 11/27/2021, 11/28/2021 interval history:?? patient presented with shortness of breath is found to have a bilateral pulmonary emboli and saddle emboli patient is being treated with heparin drip, patient was seen by his primary care and CA 19-9? was ordered and was more than 1000,? patient remains clinically stable patient was seen by oncologist and ordered ultrasound and guided? liver and pancreatic biopsy,? also consulted General surgery for MediPort placement and start the chemotherapy patient has agreed with plan, oncologist has ordered repeat? CA 19-9? will follow-up will continue to monitor will switch over the patient to [facility] before discharging home in couple of days. 11/29/2021 interval history:?? patient presented with shortness of breath is found to have a bilateral pulmonary emboli and saddle emboli patient is being treated with heparin drip, patient was seen by his primary care and CA 19-9? was ordered and was more than 1000,? patient remains clinically stable patient was seen by oncologist and ordered ultrasound and guided liver and pancreatic biopsy which was done today,? also cons
[2021-12-04 13:57] VITALS: BP 115/60; PULSE 109; RESP 18; TEMP 36.6; O2SAT 96
[2021-12-04 16:00] VITALS: BP 114/62; PULSE 108; RESP 21; TEMP 36.7; O2SAT 95
[2021-12-04] MEDS: LORazepam (*CRX) 0.5 MG TABLET PO (18:35)
[2021-12-04 19:47] VITALS: BP 112/65; PULSE 108; RESP 18; TEMP 36.8; O2SAT 97
[2021-12-04 20:00] VITALS: PULSE 108; RESP 18; O2SAT 97
[2021-12-04] MEDS: cefTRIAXone 2 GM in SODIUM CHLORIDE 0.9% IV 100 ML 200 ML IVPB (20:28)
[2021-12-05] VITALS (15 sets, daily range): BP systolic 94–132; BP diastolic 64–77; PULSE 100–128; RESP 16–25; TEMP 36.2–37.1; O2SAT 95–99
[2021-12-05] MEDS: HEPARIN SOD/D5W 100 UNITS/ML 25,000 UNITS/250 ML BAG 14 UNITS IV CONT (00:39)
[2021-12-05] MEDS: HYDROcodone/acetaminophen (*CRX) 7.5-325 MG TABLET 1 TAB PO ×4 (00:42→20:02)
[2021-12-05 05:54] LABS: Basophils Absolute Auto 0.1 K/mm3 (0.0-0.1); Basophils Percent Auto 0.9 % (0.2-1.2); Eosinophils Absolute Auto 0.3 K/mm3 (0-0.3); Eosinophils Percent Auto 4.1 % (0-4.4); Hematocrit 37.3 % (42.0-52.0); Hemoglobin 12.7 g/dL (14.0-18.0); Immature Granulocyte Absolute 0.03 K/mm3 (0.00-0.031); Immature Granulocyte Percent A 0.4 % (0-0.5); Lymphocytes Absolute Auto 1.17 K/mm3 (0.9-3.2); Lymphocytes Percent Auto 17.1 % (18.3-44.2); Mean Corpuscular Hemoglobin 30.9 pg (26-34); Mean Corpuscular Volume 90.8 fl (80-100); Mean Platelet Volume 11.3 fl (7.4-10.4); Monocytes Absolute Auto 0.8 K/mm3 (0.1-0.6); Monocytes Percent Auto 10.9 % (2.6-8.5); Neutrophils Absolute Auto 4.6 K/mm3 (1.3-6.7); Neutrophils Percent Auto 66.6 % (45.5-73.1); Platelet Count Result 315 k/mm3 (150-375); Red Blood Count 4.11 M/mm3 (4.6-6.20); Red Cell Distribution Width 14.4 % (11.5-14.5); White Blood Count 6.9 K/mm3 (4.5-10.0)
[2021-12-05] MEDS: LORazepam (*CRX) 0.5 MG TABLET PO ×2 (06:01→20:02)
[2021-12-05 06:07] LABS: Alanine Aminotransferase 29 U/L (6-50); Albumin Level 3.5 g/dL (3.5-5.1); Alkaline Phosphatase 178 U/L (38-126); Anion Gap 5 mmol/L (8-16); Aspartate Amino Transferase 58 U/L (17-59); Bilirubin,Total 0.3 mg/dL (0.2-1.3); Blood Urea Nitrogen 15 mg/dL (9-20); Calcium 8.7 mg/dL (8.4-10.2); Carbon Dioxide 28 mmol/L (22-30); Chloride 97 mmol/L (98-107); Estimated CRCL calculation 56 ml/min; Estimated Glomerular Filt Rate 60; Glucose 124 mg/dL (65-110); Magnesium 1.8 mg/dL (1.6-2.3); Partial Thromboplastin Time 80.5 SECONDS (22.3-36.8); Potassium 3.9 mmol/L (3.4-5.0); Sodium 130 mmol/L (137-145)
--- NOTE | 2021-12-05 10:02 | WPDHPUPDATE1 ---
History and Physical Update Update Date/Time: 12/05/21 10:02 History and Physical has been reviewed, including an updated exam of the patient. There are NO changes in the patient's condition. Risks, benefits, and alternatives have been discussed and questions answered. Patient agrees to proceed with procedure. will setup for VAD placement for chemo access
--- NOTE | 2021-12-05 10:31 | WPDANESEPP ---
Anes - Eval Pre Procedure Procedure: Operation Date: 12/05/21 11:30 Proposed Procedures p Insertion Dionisio Cath - Rosemarie Munoz MD Date/Time: 12/05/21 10:31 Surgeon: Dr. Munoz Pre Op Diagnosis: Pulmonary embolism/pancreatic cancer Patient Data Age: 71 Gender: M Height: 1.73 m Weight: 90 kg Last Vital Signs Temp 36.4 C L 12/05/21 08:55 Pulse 100 12/05/21 08:48 Resp 16 12/05/21 08:48 BP 121/65 12/05/21 08:48 Pulse Ox 95 12/05/21 08:48 O2 Del Method Room Air 12/05/21 08:10 O2 Flow Rate 2 11/29/21 04:00 Allergies Allergy/AdvReac Type Severity Reaction Status Date / Time amoxicillin Allergy Severe ITCHING, Verified 11/06/21 10:00 DIFFICULTY SWALLOWING adhesive AdvReac Intermediate REDNESS Verified 11/06/21 10:00 bacitracin AdvReac Unknown REDNESS AT Verified 11/06/21 10:00 THE SITE neomycin AdvReac Unknown REDNESS AT Verified 11/06/21 10:00 THE SITE polymyxin B AdvReac Unknown REDNESS AT Verified 11/06/21 10:00 THE SITE Home Medications Medication Instructions Recorded Confirmed Type allopurinol 300 mg tablet 300 mg PO DAILY 10/15/21 11/27/21 History coQ10 (ubiquinol) 200 mg capsule 200 mg PO DAILY 10/15/21 11/27/21 History fexofenadine 180 mg tablet 180 mg PO DAILY 10/15/21 11/27/21 History fluticasone propionate 50 2 spray intranasal DAILY PRN 10/15/21 11/27/21 History mcg/actuation nasal Allergy Symptoms spray,suspension (Flonase Allergy Relief) lisinopril 20 1 tablet PO DAILY 10/15/21 11/27/21 History mg-hydrochlorothiazide 12.5 mg tablet lorazepam 0.5 mg tablet 0.5 mg PO PRN PRN Anxiety 10/15/21 11/27/21 History multivitamin with minerals-folic 1 tablet PO DAILY 10/15/21 11/27/21 History acid 0.4 mg tablet rosuvastatin 10 mg tablet 10 mg PO DAILY 10/15/21 11/27/21 History omeprazole 20 mg capsule,delayed 20 mg PO DAILY 10/25/21 11/27/21 History release Laboratory Tests 11/29/21 12/05/21 12/05/21 09:20 05:24 05:24 WBC 6.9 K/mm3 K/mm3 (4.5-10.0) RBC 4.11 M/mm3 L M/mm3 (4.6-6.20) Hgb 12.7 g/dL L g/dL (14.0-18.0) Hct 37.3 % L % (42.0-52.0) MCV 90.8 fl fl (80-100) MCH 30.9 pg pg (26-34) MCHC 34.0 g/dl g/dl (32-36) RDW 14.4 % % (11.5-14.5) Plt Count 315 k/mm3 k/mm3 (150-375) MPV 11.3 fl H fl (7.4-10.4) Immature Gran % (Auto) 0.4 % % (0-0.5) Neut % (Auto) 66.6 % % (45.5-73.1) Lymph % (Auto) 17.1 % L % (18.3-44.2) [place] % (Auto) 10.9 % H % (2.6-8.5) Eos % (Auto) 4.1 % % (0-4.4) Baso % (Auto) 0.9 % % (0.2-1.2) Lymph # (Auto) 1.17 K/mm3 K/mm3 (0.9-3.2) [place] # (Auto) 0.8 K/mm3 H K/mm3 (0.1-0.6) Eos # (Auto) 0.3 K/mm3 K/mm3 (0-0.3) Baso # (Auto) 0.1 K/mm3 K/mm3 (0.0-0.1) Abs Immat Gran (auto) 0.03 K/mm3 K/mm3 (0.00-0.031) Absolute Neuts (auto) 4.6 K/mm3 K/mm3 (1.3-6.7) Absolute Nucleated RBC 0.0 K/mm3 K/mm3 (0.0-0.012) Nucleated RBC % 0.0 % % (0.0-0.2) APTT 80.5 SECONDS H SECONDS (22.3-36.8) Sodium Potassium Chloride Carbon Dioxide Anion Gap BUN Creatinine Estim Creat Clear Calc Estimated GFR Glucose Calcium Magnesium Total Bilirubin AST ALT Alkaline Phosphatase Total Protein Albumin Peritoneal Albumin 2.9 g/dL g/dL 12/05/21 05:24 WBC RBC Hgb Hct MCV MCH MCHC RDW Plt Count MPV Immature Gran % (Auto) Neut % (Auto) Lymph % (Auto) [place] % (Auto) Eos % (Auto) Baso % (Auto) Lymph # (Auto)
--- NOTE | 2021-12-05 10:34 | P.PNAN_ITS ---
Anes - Eval Final PreProcedure Day of Procedure 12/05/21 10:34 Patient weight: obese Heart: regular rate and rhythm Lungs: clear to auscultation Airway: Mallampati scale class II Neurological: alert and oriented Last oral intake: >/= 8 hours ASA classification: IV Emergent: no Anesthetic plan: proceed Anesthesia type and monitoring: general GIVS and standard monitoring Results Review: All pre-operative results and documents have been reviewed as part of the pre- operative evaluation. Informed Consent: The patient's anesthetic plan and its attendant risks and benefits were discussed with the patient/family/POA. Questions were solicited and answers provided to the satisfaction of the patient/family/POA.
[2021-12-05] MEDS: LACTATED RINGERS 1,000 ML 30 ML IV CONT (10:48)
[2021-12-05] MEDS: BUPIVACAINE/EPINEPHRINE 0.25% 50 ML VIAL 20 ML INFILTRATE (10:51)
[2021-12-05] MEDS: HEPARIN SODIUM 5,000 UNITS/ML VIAL 5000 UNITS IRRIGATION (10:58)
[2021-12-05] MEDS: HEPARIN SODIUM, PORCINE 10,000 UNITS/10 ML VIAL 4000 UNITS XX (11:03)
--- NOTE | 2021-12-05 11:18 | W.PM.PROC2 ---
Procedure Note - Detailed Date of Procedure 12/05/21 Pre-op Diagnosis Pulmonary embolism/pancreatic cancer Post-op Diagnosis Same Procedure Performed Placement of left subclavian venous access device under fluoroscopic guidance Surgeon Rosemarie Munoz MD Anesthesia MAC and Local Indications 75 y/o F c newly diagnosed pancreatic cancer requiring chemotherapy Findings first stick L SCV Description of Procedure Patient was brought into the operating room and placed in the supine position. After adequate induction of mac anesthesia, the patient was prepped and draped in normal sterile fashion. Time-out was then done to verify the patient's identity, as well as the procedure being performed. I began by making a small incision in the left chest, I then gained access into the left subclavian vein with an 18 gauge needle. I then placed the guidewire into the vein and confirmed placement via fluoroscopic guidance. I then locally anesthetized the area in the left chest. I then enlarged the incision around the guidewire including making a subcutaneous pocket inferiorly to allow placement of the port itself. I then placed a dilating sheath over the guidewire into the left subclavian vein via sterile Seldinger technique. This was once again done and confirmed via fluoroscopic guidance. I then removed the dilator and the guidewire, now just leaving the sheath in the vein. I then fed the previously flushed catheter into the left subclavian vein under fluoroscopic guidance. At approximately 20 cm, the catheter was noted to be near the atrial caval junction. I then peeled away the sheath, now just leaving the catheter in the vein. I then was able to easily draw and flush from the catheter. The catheter was cut to fit and attached to the port itself. The port was placed into the previously made subcutaneous pocket and sutured in with 0 Ethibond suture. Final fluoroscopic view showed the termination of the catheter at the atrial caval junction with a nice smooth curvature back to the port itself. I was able to gain access to the port with a Barrientos needle and was able to easily draw and flush from the port. I then flushed 4 cc of a final heparin flush into the port. The incision was closed with 3 0 Vicryl suture in the subcutaneous tissue and the skin was closed with 4 O Monocryl subcuticular suture. Dermabond was then placed on wound. The patient tolerated the procedure well and will be sent to the recovery room in stable condition. Implants L SCV VAD Estimated Blood Loss 20 Urine Output 165 Drains No Packing No Pathology None sent Complications No immediate complications Condition Stable Disposition PACU [facility] Billing Surgery - Charge Forward: Surgery Billing
[2021-12-05] MEDS: hydroCHLOROthiazide 12.5 MG CAPSULE PO (13:33)
[2021-12-05] MEDS: ROSUVASTATIN 10 MG TABLET PO (13:34)
[2021-12-05] MEDS: allopurinoL 300 MG TABLET PO (13:34)
[2021-12-05] MEDS: lisinopriL 20 MG TABLET PO (13:35)
[2021-12-05] MEDS: PANTOPRAZOLE 40 MG TABLET PO (13:35)
[2021-12-05] MEDS: THERAPEUTIC MULTIVITAMINS/MINERALS TAB (*BKC) 1 TABLET PO (13:36)
--- NOTE | 2021-12-05 15:14 | PM.IMPN ---
Progress Note: A&P Assessment and Plan (1) Pulmonary emboli: Code(s): I26.99 - Other pulmonary embolism without acute cor pulmonale Status: Acute Assessment and Plan: On heparin drip. Plan to switch to Eliquis after port placement. Venous duplex positive for DVT as well Status post port placement 12/05/2021 will resume heparin drip postoperatively and start Eliquis in morning (2) Liver mass: Code(s): R16.0 - Hepatomegaly, not elsewhere classified Status: Acute Assessment and Plan: Presented with abdominal pain for past 2-3 weeks. EGD showed nonerosive reflux disease. Abdominal MRI on 11/20/2021 read as 3.7 cm mass of pancreatic tail concerning for pancreatic adenocarcinoma along with peripancreatic and periportal lymphadenopathy as well as multiple liver masses consistent with metastatic disease. He is status post ultrasound guided biopsy of liver mass. Pathology suggestive of metastatic pancreatic cancer mediport placement 12/05/2021 Dr. Cruz has been consulted and plan to start chemotherapy as an outpatient basis (3) Gout: Code(s): M10.9 - Gout, unspecified Status: Acute Assessment and Plan: Continue home medications (4) Anxiety: Code(s): F41.9 - Anxiety disorder, unspecified Status: Chronic Assessment and Plan: Continue with his home medication (5) Chronic GERD: Code(s): K21.9 - Gastro-esophageal reflux disease without esophagitis Status: Acute Assessment and Plan: Continue with PPI (6) Hyperlipidemia: Code(s): E78.5 - Hyperlipidemia, unspecified Status: Acute Assessment and Plan: Continue with home medication (7) HTN (hypertension): Code(s): I10 - Essential (primary) hypertension Status: Acute Assessment and Plan: Continue with home medication Plan Bacterial peritonitis also on ceftriaxone for this. Plan to switch to oral antibiotic at discharge. Status post paracentesis for ascites. Ascites fluid showed elevated nucleated cells and concerning for SBP. Patient was started on cefotetan and Flagyl on 12/02 but was later switched to ceftriaxone 2 g every day for until 12/06. Subjective Date/time seen: 12/05/21 15:14 Interval history: HPI: This is a 71-year-old male patient who has been complaining of abdominal pain for the past 2-3 weeks.? The patient had an EGD which shows nonerosive reflux disease.? Today the patient came in with shortness of breath and dyspnea.? 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 Peripancreatic and periportal lymphadenopathy as well as multiple liver masses are consistent with metastatic disease.? Ultrasound-guided liver biopsy is recommended.? Small pleural effusion right greater than left.? He the patient stated that his primary care doctor was going to review his MRI and discussed it with another radiologist for 2nd opinion.? However the patient felt short of breath that came on all of a sudden this past Thursday.? So the patient decided to come to the emergency room.? CTA pulmonary was read as bilateral pulmonary emboli including saddle embolus on the right.? Multiple pulmonary and hepatic metastatic lesions.? Bilateral pleural effusions right greater than left ascites suspected pancreatic tail mass with suggestion of splenic invasion metastatic pancreatic carcinoma suspected.? The patient was started on a heparin drip.? Interventional Radiology has been consulted for ultrasound-guided liver biopsy.? His H&H is 13.9 and 41.3.? Troponin 0.057.? BNP 655.? Lipase 308 COVID negative.? Patient is being admitted to observation status on the date of service of 11/27/2021, 11/28/2021 interval history:?? patient presented with shortness of breath is found to have a bilateral pulmonary emboli and saddle emboli patient is being treated with heparin drip, patient w
--- NOTE | 2021-12-05 15:42 | PCCCNOTE ---
On 12/05/21, the student, Marya Jasso, provided care and completed [facility] documentation on this patient. I have reviewed the student's documentation and agree with the findings.
[2021-12-05 17:11] LABS: Partial Thromboplastin Time 31.7 SECONDS (22.3-36.8)
[2021-12-05] MEDS: HEPARIN SOD/D5W 100 UNITS/ML 25,000 UNITS/250 ML BAG 15 UNITS IV CONT (17:38)
[2021-12-05] MEDS: cefTRIAXone 2 GM in SODIUM CHLORIDE 0.9% IV 100 ML 200 ML IVPB (20:38)
[2021-12-06 00:24] LABS: Partial Thromboplastin Time 74.9 SECONDS (22.3-36.8)
[2021-12-06] MEDS: HYDROcodone/acetaminophen (*CRX) 7.5-325 MG TABLET 1 TAB PO ×4 (01:53→16:14)
[2021-12-06 05:59] LABS: Basophils Absolute Auto 0.1 K/mm3 (0.0-0.1); Basophils Percent Auto 0.6 % (0.2-1.2); Eosinophils Absolute Auto 0.6 K/mm3 (0-0.3); Eosinophils Percent Auto 7.1 % (0-4.4); Hematocrit 35.4 % (42.0-52.0); Hemoglobin 12.4 g/dL (14.0-18.0); Immature Granulocyte Absolute 0.03 K/mm3 (0.00-0.031); Immature Granulocyte Percent A 0.4 % (0-0.5); Lymphocytes Percent Auto 15.3 % (18.3-44.2); Mean Corpuscular Hemoglobin 31.7 pg (26-34); Mean Corpuscular Volume 90.5 fl (80-100); Mean Platelet Volume 10.7 fl (7.4-10.4); Monocytes Absolute Auto 0.9 K/mm3 (0.1-0.6); Monocytes Percent Auto 11.1 % (2.6-8.5); Neutrophils Absolute Auto 5.1 K/mm3 (1.3-6.7); Neutrophils Percent Auto 65.5 % (45.5-73.1); Platelet Count Result 269 k/mm3 (150-375); Red Blood Count 3.91 M/mm3 (4.6-6.20); Red Cell Distribution Width 14.6 % (11.5-14.5); White Blood Count 7.9 K/mm3 (4.5-10.0)
[2021-12-06 06:00] VITALS: BP 121/64; PULSE 106; RESP 18; TEMP 36.8; O2SAT 97
[2021-12-06 06:13] LABS: Alanine Aminotransferase 36 U/L (6-50); Albumin Level 3.4 g/dL (3.5-5.1); Alkaline Phosphatase 190 U/L (38-126); Anion Gap 3 mmol/L (8-16); Aspartate Amino Transferase 64 U/L (17-59); Bilirubin,Total 0.3 mg/dL (0.2-1.3); Blood Urea Nitrogen 13 mg/dL (9-20); Calcium 8.7 mg/dL (8.4-10.2); Carbon Dioxide 28 mmol/L (22-30); Chloride 97 mmol/L (98-107); Estimated CRCL calculation 60 ml/min; Estimated Glomerular Filt Rate > 60; Glucose 118 mg/dL (65-110); Partial Thromboplastin Time 91.7 SECONDS (22.3-36.8); Potassium 4.1 mmol/L (3.4-5.0); Sodium 128 mmol/L (137-145)
[2021-12-06 09:11] VITALS: O2SAT 94
[2021-12-06] MEDS: allopurinoL 300 MG TABLET PO (09:14)
[2021-12-06] MEDS: ROSUVASTATIN 10 MG TABLET PO (09:14)
[2021-12-06] MEDS: PANTOPRAZOLE 40 MG TABLET PO (09:14)
[2021-12-06] MEDS: hydroCHLOROthiazide 12.5 MG CAPSULE PO (09:14)
[2021-12-06] MEDS: THERAPEUTIC MULTIVITAMINS/MINERALS TAB (*BKC) 1 TABLET PO (09:14)
[2021-12-06] MEDS: lisinopriL 20 MG TABLET PO (09:15)
[2021-12-06] MEDS: APIXABAN 5 MG TABLET 10 MG PO (10:13)
--- NOTE | 2021-12-06 10:18 | PM.DS ---
DS: Admitting Diagnosis Discharge Date 12/06/2021 Admitting Diagnosis abdominal pain DS: Discharge Diagnosis Discharge Diagnosis (1) Pulmonary emboli: Code(s): I26.99 - Other pulmonary embolism without acute cor pulmonale Status: Acute Assessment and Plan: he was started On heparin drip. this was switched to Eliquis after port placement on 12/05/2021. Venous duplex positive for DVT as well. Status post port placement 12/05/2021 continued heparin drip postoperatively and eliquis restarted postport placement (2) Liver mass: Code(s): R16.0 - Hepatomegaly, not elsewhere classified Status: Acute Assessment and Plan: Presented with abdominal pain for past 2-3 weeks. EGD showed nonerosive reflux disease. Abdominal MRI on 11/20/2021 read as 3.7 cm mass of pancreatic tail concerning for pancreatic adenocarcinoma along with peripancreatic and periportal lymphadenopathy as well as multiple liver masses consistent with metastatic disease. He is status post ultrasound guided biopsy of liver mass. Pathology suggestive of metastatic pancreatic cancer mediport placement 12/05/2021 Dr. Broderick has been consulted and plan to start chemotherapy as an outpatient basis (3) Gout: Code(s): M10.9 - Gout, unspecified Status: Acute Assessment and Plan: Continue home medications (4) Anxiety: Code(s): F41.9 - Anxiety disorder, unspecified Status: Chronic Assessment and Plan: Continue with his home medication (5) Chronic GERD: Code(s): K21.9 - Gastro-esophageal reflux disease without esophagitis Status: Acute Assessment and Plan: Continue with PPI (6) Hyperlipidemia: Code(s): E78.5 - Hyperlipidemia, unspecified Status: Acute Assessment and Plan: Continue with home medication (7) HTN (hypertension): Code(s): I10 - Essential (primary) hypertension Status: Acute Assessment and Plan: Continue with home medication Plan POssilbe spontaneous Bacterial peritonitis likely with elevated Status post paracentesis for ascites. Ascites fluid showed elevated nucleated cells and concerning for SBP. Patient was started on cefotetan and Flagyl started on 11/27 but on 12/02 was later switched to ceftriaxone 2 g every day for until 12/06. he finished. DS: Summary Hospital Course Hospital Course: see above Time Spent with Patient Time attestation: Total time spent providing and/or coordinating discharge services: 50 mins Exam Narrative: moderately obese,no acute distress Patient is comfortable, NAD surgical incision with poor placement on left upper chest noted HEENT: eyes are clear and none icteric LUNGS: normal respiratory effort, no respiratory distress HEART: RR S1S2 ABD: BS+, Soft and nontender mildly distended Lower extremities: no edema cyanosis or clubbing SKIN: nonjaundiced Neuro: grossly intact. alert and oriented x3 DS: Data Data Completed and Pending Completed studies during hospitalization: Pending at discharge 11/28/21 15:02 Cytology [PTH] Routine Labs on day of discharge: Labs from last 24 hours 12/06/21 12/06/21 12/06/21 05:52 05:52 05:52 WBC 7.9 RBC 3.91 L Hgb 12.4 L Hct 35.4 L MCV 90.5 MCH 31.7 MCHC 35.0 RDW 14.6 H Plt Count 269 MPV 10.7 H Immature Gran % (Auto) 0.4 Neut % (Auto) 65.5 Lymph % (Auto) 15.3 L [place] % (Auto) 11.1 H Eos % (Auto) 7.1 H Baso % (Auto) 0.6 Lymph # (Auto) 1.20 [place] # (Auto) 0.9 H Eos # (Auto) 0.6 H Baso # (Auto) 0.1 Abs Immat Gran (auto) 0.03 Absolute Neuts (auto) 5.1 Absolute Nucleated RBC 0.0 Nucleated RBC % 0.0 APTT 91.7 H Sodium 128 L Potassium 4.1 Chloride 97 L Carbon Dioxide 28 Anion Gap 3 L BUN 13 Creatinine 1.10 Estim Creat Clear Calc 60 Estimated GFR > 60 Glucose 118 H Calcium 8.7 Total Bilirubin 0.3 AST
--- NOTE | 2021-12-06 10:28 | PCNWS ---
Weekly nutritional screen. Patient is tolerating current diet with adequate intake (typically 75-100% of meals). No weight loss reported. No nutritional needs at this time. PT reports appetite is getting better and good hunger cues before meals. Agree with diet orders
--- NOTE | 2021-12-06 11:56 | PCNSR ---
On 12/06/21, the student, Jean Roy, provided care and completed [facility] documentation on this patient. I have reviewed the student's documentation and agree with the findings.
[2021-12-06 15:22] VITALS: BP 128/60; PULSE 105; RESP 18; TEMP 37; O2SAT 96
[2021-12-08 13:34] LABS: Amylase Peritoneal Fluid 30 U/L
== END 2021-12-06 16:37 | disposition home or self-care (01) | DRG 166 ==
LOC: ANHED 15:46 → ANHIMU 16:19 → ANH3MED 11-30 13:21
PROVIDERS: Family Medicine; Nurse Practitioner; Surgery; Admitting Provider Internal Medicine; Emergency Provider Emergency Medicine; PCP Internal Medicine; Visit Provider Internal Medicine
PROC: 0JH60WZ Insertion of Totally Implantable Vascular Access Device into Chest Subcutaneous Tissue and Fascia, Open Approach (ICD-10-PCS; principal; 2021-12-05 11:30)
DX: I26.99 Other pulmonary embolism without acute cor pulmonale (principal); K65.2 Spontaneous bacterial peritonitis; C25.9 Malignant neoplasm of pancreas, unspecified; C78.7 Secondary malignant neoplasm of liver and intrahepatic bile duct; J90 Pleural effusion, not elsewhere classified; C77.2 Secondary and unspecified malignant neoplasm of intra-abdominal lymph nodes; I82.452 Acute embolism and thrombosis of left peroneal vein; I82.442 Acute embolism and thrombosis of left tibial vein; I26.92 Saddle embolus of pulmonary artery without acute cor pulmonale; Z20.822 Contact with and (suspected) exposure to COVID-19; M10.9 Gout, unspecified; F41.9 Anxiety disorder, unspecified; I10 Essential (primary) hypertension; E78.5 Hyperlipidemia, unspecified; K21.9 Gastro-esophageal reflux disease without esophagitis; E66.9 Obesity, unspecified; Z68.30 Body mass index [BMI] 30.0-30.9, adult; Z87.891 Personal history of nicotine dependence
CPT/HCPCS: 36415; 47000; 49083; 71275; 76942; 77001; 80053; 82040; 82042; 82150; 82945; 83605; 83615; 83690; 83735; 83880; 84157; 84484; 85025; 85610; 85730; 87070; 87075; 87205; 88108; 88305; 88307; 88342; 89051; 93005; 93306; 93970; 96365; 96366; 96375; 97161; 97165; 99291; A9270; C1788; C9803; G0378; J0696; J1644; J2270; J2704; J7030; J7120; Q9967; U0003; U0005

== ENCOUNTER 2021-12-17 13:36 | Emergency (ER) | payer MEDICARE, SELFPAY ==
--- NOTE | ~2021-12-17 | CT_ITS ---
EXAMINATION: CT abdomen pelvis w con DATE: 12/17/2021 15:51 INDICATION: Right groin pain. History of liver and pancreatic cancer. TECHNIQUE: Computed tomography (CT) of the abdomen and pelvis was performed with 100 cc Omnipaque 300 intravenous contrast. The dose-length product was 1000.83 mGy-cm. Automated exposure control and ite rative reconstruction technique were employed. COMPARISON: MRI brain dated 11/20/2021 FINDINGS: There is pulmonary embolism in the right main pulmonary artery, partially visualized. Moder ate right and small left pleural effusions. Heart size normal. There is dependent atelectasis. There are multiple heterogeneously enhancing liver masses, consistent with metastatic disease. There is a c omplex hypodense mass of the pancreatic tail measuring 3.9 x 3.1 cm, suspicious for pancreatic adenoc arcinoma. There is large amount of ascites. There is heterogeneous appearance to the spleen, possibly related to contrast bolus timing although metastatic disease or splenic infarction should be conside red. The adrenal glands and kidneys are unremarkable. There is atherosclerosis of the aorta without e vidence for aneurysm. There is peritoneal and omental nodularity, suspicious for peritoneal carcinomatosis. Nonobstructive bowel gas pattern. IMPRESSION: 1. 3.9 cm pancreatic tail mass, suspicious for pancreatic adenocarcinoma with probable metastases to the liver, periportal lymph nodes as well as probable peritoneal carcinomatosis. 2: Pulmonary embolism involving the right main pulmonary artery. 3: Moderate right and small left pleural effusions. 4: Large amount of ascites. Dr. Jason Hickman discussed with Dr. Ebony Billings PA-C at 12/17/2021 16:03 CDT. Reviewed, dictated and finalized at location A. IMPRESSION: 1. 3.9 cm pancreatic tail mass, suspicious for pancreatic adenocarcinoma with p robable metastases to the liver, periportal lymph nodes as well as probable per itoneal carcinomatosis. 2: Pulmonary embolism involving the right main pulmonary artery. 3: Moderate right and small left pleural effusions. 4: Large amount of ascites. Dr. Jason Hickman discussed with Dr. Ebony Billings PA-C at 12/17/2021 16:0 3 CDT.
[2021-12-17 13:38] VITALS: BP 134/72; PULSE 132; RESP 16; TEMP 35.9; O2SAT 98
--- NOTE | 2021-12-17 13:53 | ED.ABDPAIN ---
HPI - Abdominal Pain General Chief Complaint: Abdominal Pain Stated Complaint: abd pain Time Seen by Provider: 12/17/21 13:42 History of Present Illness HPI narrative: Patient is a 71-year-old male with a history of pancreatic malignancy complicated by ascites with recent SBP, treated with antibiotics in the hospital, saddle pulmonary embolism on Eliquis, here for evaluation of right groin pain for the past 3 days. Patient states that the pain is intermittent in nature, worse when he is up and moving around, resolves when he is lying flat. He has attempted his [place] at home without relief of his pain. Denies any abdominal pain, nausea, vomiting, leg pain or swelling. He is set to start chemotherapy tomorrow for his pancreatic cancer with Dr. Broderick, has a port in place. He is currently being treated for PE and left lower extremity DVT with Eliquis; denies chest pain or shortness of breath. Related Data Home Medications Medication Instructions Recorded Confirmed allopurinol 300 mg tablet 300 mg PO DAILY 10/15/21 12/16/21 coQ10 (ubiquinol) 200 mg capsule 200 mg PO DAILY 10/15/21 12/16/21 fexofenadine 180 mg tablet 180 mg PO DAILY 10/15/21 12/16/21 fluticasone propionate 50 2 spray intranasal DAILY PRN 10/15/21 12/16/21 mcg/actuation nasal Allergy Symptoms spray,suspension (Flonase Allergy Relief) lisinopril 20 1 tablet PO DAILY 10/15/21 12/16/21 mg-hydrochlorothiazide 12.5 mg tablet lorazepam 0.5 mg tablet 0.5 mg PO PRN PRN Anxiety 10/15/21 12/16/21 multivitamin with minerals-folic 1 tablet PO DAILY 10/15/21 12/16/21 acid 0.4 mg tablet rosuvastatin 10 mg tablet 10 mg PO DAILY 10/15/21 12/16/21 omeprazole 20 mg capsule,delayed 20 mg PO DAILY 10/25/21 12/16/21 release Allergies Allergy/AdvReac Type Severity Reaction Status Date / Time amoxicillin Allergy Severe ITCHING, Verified 12/16/21 14:22 DIFFICULTY SWALLOWING adhesive AdvReac Intermediate REDNESS Verified 12/16/21 14:22 bacitracin AdvReac Unknown REDNESS AT Verified 12/16/21 14:22 THE SITE neomycin AdvReac Unknown REDNESS AT Verified 12/16/21 14:22 THE SITE polymyxin B AdvReac Unknown REDNESS AT Verified 12/16/21 14:22 THE SITE Review of Systems Review of Systems: Gen: Denies fevers or chills Eyes: Denies eye pain or visual change ENT: Denies congestion Respiratory: Denies shortness of breath or cough CV: Denies chest pain or palpitations GI: Reports right groin pain. Denies abdominal pain nausea, emesis or diarrhea : denies burning, urgency, frequency or hematuria Musculoskeletal: Denies back pain or muscle pain Neuro: Denies numbness, tingling, weakness or focal weakness Skin: Denies rash Except as documented, all other systems reviewed and negative [facility] Past Medical History Medical History Anxiety Chronic GERD DDD (degenerative disc disease) Gout HTN (hypertension) Hyperlipidemia Obesity Surgical History Surgical History History of back surgery fusion S/P tonsillectomy Family History Family History Mother CHF (congestive heart failure), NYHA class I Father ESRD (end stage renal disease) Social History Social History Social History: He lives alone. He is . He would like his daughter to be poa. He is retired [employer] He drinks 1-2 alcoholic beverages a day. He has one child, 1 child code status full code Smoking packs per day: 2 Smoking cigarettes per day: 40.0 Years smoked: 30 Smoking pack-years: 60.00 Smoking status: Former smoker Tobacco type: cigarettes Second hand tobacco smoke exposure: No Smoking end date: 05/25/04 Alcohol intake: current Drinks per week: 14 Substance use: current Substance use type: pr
--- NOTE | 2021-12-17 13:54 | ECG_ITS ---
Measurements Intervals [place] Rate: 122 P: 41 WV: 143 QRS: 64 QRSD: 85 T: 7 QT: 305 QTc: 435 Interpretive Statements SINUS TACHYCARDIA DELAYED PRECORDIAL R/S TRANSITION MINIMAL Q WAVES- INFERIOR LEADS BORDERLINE ST-T WAVE ABNORMALITY- INFERIOR LEADS BASELINE WANDER- I, II, III, AVR, AVF ABNORMAL ECG Electronically Signed On 12-17-2021 15:15:07 CDT by Ken Looney D.O.
[2021-12-17 13:56] VITALS: BP 124/66; PULSE 125; RESP 18; TEMP 36.2; O2SAT 97
[2021-12-17 14:46] LABS: Basophils Absolute Auto 0.1 K/mm3 (0.0-0.1); Basophils Percent Auto 0.6 % (0.2-1.2); Eosinophils Absolute Auto 0.1 K/mm3 (0-0.3); Eosinophils Percent Auto 1.5 % (0-4.4); Hematocrit 37.8 % (42.0-52.0); Hemoglobin 12.5 g/dL (14.0-18.0); Immature Granulocyte Absolute 0.03 K/mm3 (0.00-0.031); Immature Granulocyte Percent A 0.4 % (0-0.5); Lymphocytes Absolute Auto 0.59 K/mm3 (0.9-3.2); Lymphocytes Percent Auto 7.3 % (18.3-44.2); Mean Corpuscular HGB Conc 33.1 g/dl (32-36); Mean Corpuscular Hemoglobin 30.6 pg (26-34); Mean Corpuscular Volume 92.6 fl (80-100); Mean Platelet Volume 10.1 fl (7.4-10.4); Monocytes Absolute Auto 0.8 K/mm3 (0.1-0.6); Monocytes Percent Auto 9.3 % (2.6-8.5); Neutrophils Absolute Auto 6.6 K/mm3 (1.3-6.7); Neutrophils Percent Auto 80.9 % (45.5-73.1); Platelet Count Result 299 k/mm3 (150-375); Red Blood Count 4.08 M/mm3 (4.6-6.20); Red Cell Distribution Width 15.4 % (11.5-14.5); White Blood Count 8.1 K/mm3 (4.5-10.0)
[2021-12-17 14:53] LABS: Alanine Aminotransferase 45 U/L (6-50); Albumin Level 3.7 g/dL (3.5-5.1); Alkaline Phosphatase 324 U/L (38-126); Anion Gap 9 mmol/L (8-16); Aspartate Amino Transferase 65 U/L (17-59); Bilirubin,Total 0.9 mg/dL (0.2-1.3); Blood Urea Nitrogen 25 mg/dL (9-20); Carbon Dioxide 25 mmol/L (22-30); Chloride 99 mmol/L (98-107); Estimated CRCL calculation 46 ml/min; Estimated Glomerular Filt Rate 55; Glucose 116 mg/dL (65-110); Potassium 4.6 mmol/L (3.4-5.0); Sodium 133 mmol/L (137-145)
[2021-12-17 17:27] LABS: INR 1.6; Prothrombin Time 18.1 Seconds (11.1-14.7)
[2021-12-17 17:29] LABS: Partial Thromboplastin Time 35.1 SECONDS (22.3-36.8)
[2021-12-17] MEDS: HYDROcodone/acetaminophen (*CRX) 7.5-325 MG TABLET 1 TAB PO (17:47)
== END 2021-12-17 18:49 | disposition left against medical advice (07) ==
PROVIDERS: Physician Assistant; Emergency Provider Emergency Medicine; PCP Internal Medicine
DX: I26.99 Other pulmonary embolism without acute cor pulmonale (principal); C25.9 Malignant neoplasm of pancreas, unspecified; C78.7 Secondary malignant neoplasm of liver and intrahepatic bile duct; I10 Essential (primary) hypertension; E78.5 Hyperlipidemia, unspecified; M10.9 Gout, unspecified; K21.9 Gastro-esophageal reflux disease without esophagitis; F41.9 Anxiety disorder, unspecified; E66.9 Obesity, unspecified; Z68.29 Body mass index [BMI] 29.0-29.9, adult; Z98.1 Arthrodesis status; Z86.711 Personal history of pulmonary embolism; Z79.01 Long term (current) use of anticoagulants; R18.8 Other ascites; J90 Pleural effusion, not elsewhere classified; R00.0 Tachycardia, unspecified; R94.31 Abnormal electrocardiogram [ECG] [EKG]
CPT/HCPCS: 36415; 74177; 80053; 85025; 85610; 85730; 93005; 99284; A9270; Q9967

== ENCOUNTER 2021-12-31 12:56 | Outpatient (CLI) | payer MEDICARE, SELFPAY ==
--- NOTE | ~2021-12-31 | US_ITS ---
EXAMINATION: US paracentesis abd w/image DATE: 12/31/2021 14:56 INDICATION: Ascites. TECHNIQUE: The procedure and its risks, benefits, and alternatives were discussed with the patient. P otential risks discussed included bleeding and infection. The skin was prepped and draped in sterile fashion. 1% lidocaine was used for local anesthesia. Under ultrasound guidance, a 5 Fr catheter with trochar was advanced into the ascites in the left lower quadrant. Fluid was aspirated. The catheter w as removed, and a dressing was applied. There were no immediate complications. FINDINGS: Ultrasound images demonstrate ascites and the catheter within the fluid. IMPRESSION: 1. Successful ultrasound-guided paracentesis yielding 5000 mL of turbid, yellow fluid. Reviewed, dictated and finalized at location A. IMPRESSION: 1. Successful ultrasound-guided paracentesis yielding 5000 mL of turbid, yello w fluid.
== END 2021-12-31 12:57 | disposition home or self-care (01) ==
LOC: ANHIMG 13:01
PROVIDERS: PCP Internal Medicine; Visit Provider Internal Medicine Hematology & Oncology
DX: R18.0 Malignant ascites (principal)
CPT/HCPCS: 49083

== ENCOUNTER 2022-01-07 10:21 | Inpatient (IN) | payer MEDICARE, SELFPAY ==
[2022-01-07] VITALS (29 sets, daily range): BP systolic 86–124; BP diastolic 58–73; PULSE 111–142; RESP 14–29; TEMP 36.4–37.4; O2SAT 98–100; BMI 28.5
--- NOTE | ~2022-01-07 | US_ITS ---
EXAMINATION: US venous doppler [facility] DATE: 01/07/2022 12:04 INDICATION: Left lower limb pain TECHNIQUE: Katz scale images without and with compression and Doppler images of the left lower extrem ity veins were obtained. COMPARISON: 11/28/2021 FINDINGS: The left common femoral vein, profunda femoral vein, femoral vein, popliteal vein, peroneal trunk, posterior tibial veins, and greater saphenous vein are patent. IMPRESSION: 1. Patent left lower extremity veins. No evidence of deep venous thrombosis. Reviewed, dictated and finalized at location A.
--- NOTE | ~2022-01-07 | US_ITS ---
EXAMINATION: US paracentesis abd w/image DATE: 01/07/2022 18:17 INDICATION: Ascites. TECHNIQUE: The procedure and its risks, benefits, and alternatives were discussed with the patient. P otential risks discussed included bleeding and infection. The skin was prepped and draped in sterile fashion. 1% lidocaine was used for local anesthesia. Under ultrasound guidance, a 5 Fr catheter with trochar was advanced into the ascites in the left lower quadrant. Fluid was aspirated. The catheter w as removed, and a dressing was applied. There were no immediate complications. FINDINGS: Ultrasound images demonstrate ascites and the catheter within the fluid. IMPRESSION: 1. Successful ultrasound-guided paracentesis yielding 5000 mL of cloudy, yellow fluid. Reviewed, dictated and finalized at location A. IMPRESSION: 1. Successful ultrasound-guided paracentesis yielding 5000 mL of cloudy, yello w fluid.
--- NOTE | ~2022-01-07 | US_ITS ---
EXAMINATION: US renal BI DATE: 01/07/2022 18:31 INDICATION: Acute renal failure. TECHNIQUE: Multiple ultrasound grayscale images of the kidneys were obtained. COMPARISON: CT abdomen and pelvis 12/17/2021 FINDINGS: The right kidney measures 11.0 x 5.1 x 5.9 cm. The left kidney measures 11.4 x 5.4 x 4.9 cm. The kidn eys demonstrate normal parenchymal echogenicity. There is no hydronephrosis. The bladder is normal. A scites is noted. IMPRESSION: 1. Normal kidneys. No hydronephrosis. 2. Ascites. Reviewed, dictated and finalized at location A.
--- NOTE | ~2022-01-07 | XR_ITS ---
XR chest 2V 01/07/2022 11:22 Indication: Sepsis. Shortness of breath. Procedure: 2 view chest Comparison: Comparison to multiple prior studies sequentially, with oldest reviewed study dated 12/05. Findings: Shallow inspiration. Bibasilar infiltrates are present. Small right pleural effusion. Dionisio catheter tip in the SVC. There is posterior spinal fusion of the mid thoracic spine. No edema or pneu mothorax. No acute osseous abnormality. Impression: 1: Bibasilar infiltrates may represent atelectasis or pneumonia. 2: Small right pleural effusion. Reviewed, dictated and finalized at location B. Impression: 1: Bibasilar infiltrates may represent atelectasis or pneumonia. 2: Small right pleural effusion.
--- NOTE | 2022-01-07 10:26 | ECG_ITS ---
Measurements Intervals [place] Rate: 140 P: 59 WI: 133 QRS: 60 QRSD: 85 T: 21 QT: 272 QTc: 416 Interpretive Statements SINUS TACHYCARDIA, POSSIBLE ATRIAL FLUTTER NONSPECIFIC T-WAVE ABNORMALITY CANNOT RULE OUT INFERIOR INFARCTION, AGE INDETERMINATE ABNORMAL RHYTHM ECG COMPARED TO ECG 01/07/2022 10:28:03 NO SIGNIFICANT CHANGES Electronically Signed On 01-07-2022 12:09:59 CDT by Roland Chavez M.D. Dictated By: Roland Chavez MD 01/07/22 1209 Signed By: TUSHAR
--- NOTE | 2022-01-07 10:29 | ED.GENADULT ---
HPI - General Adult General Chief complaint: Recheck/Abnormal Lab/Rx Stated complaint: low bp high hr Time Seen by Provider: 01/07/22 10:26 History of Present Illness HPI narrative: The patient is a 71 year-old male with a history of pancreatic malignancy, ascites/SBP, recent admission for saddle PE, with chronic anticoagulation, presenting to the ER for evaluation of abnormal vital signs found prior to hischemotherapy session this morning. Pt was noted to be tachycardic and hypotensive, thus sent here for evaluation. Patient states that he feels slightly weaker than normal, and lightheaded with standing but denies any other acute symptoms. He denies fever, chills, nausea or vomiting. He states he has had a good appetite since initiating his chemotherapy. He denies any specific chest or abdominal pain. He reports mild, nonproductive cough and denies hemoptysis. He denies any shortness of breath. Patient does report a small amount of bruising and erythema in his left lower extremity which is slightly tender on exam but has been present for several weeks. He has been compliant with his medications. He states that his port site is normal-appearing and nonpainful. Patient does report difficulty with urination as well as dysuria. He denies flank pain. Related Data Home Medications Medication Instructions Recorded Confirmed allopurinol 300 mg tablet 300 mg PO DAILY 10/15/21 12/16/21 coQ10 (ubiquinol) 200 mg capsule 200 mg PO DAILY 10/15/21 12/16/21 fexofenadine 180 mg tablet 180 mg PO DAILY 10/15/21 12/16/21 fluticasone propionate 50 2 spray intranasal DAILY PRN 10/15/21 12/16/21 mcg/actuation nasal Allergy Symptoms spray,suspension (Flonase Allergy Relief) lisinopril 20 1 tablet PO DAILY 10/15/21 12/16/21 mg-hydrochlorothiazide 12.5 mg tablet lorazepam 0.5 mg tablet 0.5 mg PO PRN PRN Anxiety 10/15/21 12/16/21 multivitamin with minerals-folic 1 tablet PO DAILY 10/15/21 12/16/21 acid 0.4 mg tablet rosuvastatin 10 mg tablet 10 mg PO DAILY 10/15/21 12/16/21 omeprazole 20 mg capsule,delayed 20 mg PO DAILY 10/25/21 12/16/21 release Allergies Allergy/AdvReac Type Severity Reaction Status Date / Time amoxicillin Allergy Severe ITCHING, Verified 01/07/22 10:33 DIFFICULTY SWALLOWING adhesive AdvReac Intermediate REDNESS Verified 01/07/22 10:33 bacitracin AdvReac Unknown REDNESS AT Verified 01/07/22 10:33 THE SITE neomycin AdvReac Unknown REDNESS AT Verified 01/07/22 10:33 THE SITE polymyxin B AdvReac Unknown REDNESS AT Verified 01/07/22 10:33 THE SITE Review of Systems Review of Systems: CONSTITUTIONAL: Denies fever, chills, or sweats. EYES: Denies visual changes, redness, or discharge. ENT: Denies rhinorrhea, congestion, sore throat, or otalgia. CARDIOVASCULAR: Denies chest pain, palpitations, or edema. RESPIRATORY: Reports nonproductive cough without dyspnea. GASTROINTESTINAL: Reports abdominal distention. Denies abdominal pain, nausea, vomiting, or diarrhea. GENITOURINARY: Reports dysuria without hematuria SKIN: Denies rash or itching. MUSCULOSKELETAL: Denies back pain, joint pain, or myalgia. NEUROLOGIC: Denies headache, numbness, or weakness. [facility] Past Medical History Medical History (Updated 01/07/22 @ 14:04 by Jenn Carias MD) Acute saddle pulmonary embolus Anxiety Chronic GERD Colon cancer screening DDD (degenerative disc disease) Epigastric pain Gout HTN (hypertension) Hyperlipidemia Liver mass Obesity Obesity (BMI 30-39.9) Pancreatic cancer With Mets to the liver Pancreatic mass Port-A-Cath in place Prevention of chemotherapy-induced neutropenia Pulmonary emboli Surgical History Surgical History History of back surgery fusion S/P tonsillectomy Family History Family History Mother CHF (congestive heart failure), NYHA class I Father ESRD (
[2022-01-07] MEDS: LACTATED RINGERS 1,000 ML 999 ML IV CONT (10:38)
[2022-01-07 10:43] LABS: Basophils Absolute Auto 0.1 K/mm3 (0.0-0.1); Basophils Percent Auto 0.5 % (0.2-1.2); Eosinophils Absolute Auto 0.2 K/mm3 (0-0.3); Eosinophils Percent Auto 1.4 % (0-4.4); Immature Granulocyte Absolute 0.34 K/mm3 (0.00-0.031); Immature Granulocyte Percent A 2.3 % (0-0.5); Lymphocytes Absolute Auto 0.85 K/mm3 (0.9-3.2); Lymphocytes Percent Auto 5.7 % (18.3-44.2); Mean Corpuscular HGB Conc 33.3 g/dl (32-36); Mean Corpuscular Volume 89.9 fl (80-100); Mean Platelet Volume 10.9 fl (7.4-10.4); Monocytes Absolute Auto 1.2 K/mm3 (0.1-0.6); Monocytes Percent Auto 7.9 % (2.6-8.5); Neutrophils Absolute Auto 12.4 K/mm3 (1.3-6.7); Neutrophils Percent Auto 82.2 % (45.5-73.1); Platelet Count Result 432 k/mm3 (150-375); Red Blood Count 3.67 M/mm3 (4.6-6.20); Red Cell Distribution Width 16.5 % (11.5-14.5)
[2022-01-07 10:53] LABS: Lactic Acid Reflex 1.4 mmol/L (0.7-2.0)
[2022-01-07 10:55] LABS: Alanine Aminotransferase 158 U/L (6-50); Albumin Level 3.4 g/dL (3.5-5.1); Alkaline Phosphatase 698 U/L (38-126); Anion Gap 12 mmol/L (8-16); Aspartate Amino Transferase 171 U/L (17-59); Bilirubin,Total 0.6 mg/dL (0.2-1.3); Blood Urea Nitrogen 82 mg/dL (9-20); Calcium 9.6 mg/dL (8.4-10.2); Carbon Dioxide 20 mmol/L (22-30); Chloride 101 mmol/L (98-107); Estimated CRCL calculation 23 ml/min; Estimated Glomerular Filt Rate 23; Glucose 135 mg/dL (65-110); Potassium 4.6 mmol/L (3.4-5.0); Sodium 133 mmol/L (137-145)
[2022-01-07 11:02] LABS: INR 2.4; Prothrombin Time 25.2 Seconds (11.1-14.7)
[2022-01-07 11:03] LABS: Partial Thromboplastin Time 45.2 SECONDS (22.3-36.8)
[2022-01-07 11:04] LABS: Troponin I 0.053 ng/mL (0.000-0.034)
[2022-01-07 11:05] LABS: CRP 21.8 mg/dL (<1.0)
[2022-01-07 11:41] LABS: SARS-CoV-2 RNA PCR Negative
--- NOTE | 2022-01-07 11:54 | ECG_ITS ---
Measurements Rate 127 DE 129 QRSd 88 QT 292 QTc 425 --[place]-- P 66 QRS 74 T 25 SINUS TACHYCARDIA CANNOT RULE OUT INFERIOR INFARCTION NONSPECIFIC T-WAVE ABNORMALITY ABNORMAL ECG COMPARED TO ECG 01/07/2022 10:29:31 NO SIGNIFICANT CHANGES Electronically Signed On 01-09-2022 14:45:50 CDT by Roland FINLEY
--- NOTE | 2022-01-07 12:00 | PC.NURSE ---
Pts antibiotic not hung within hour due to imaging and subsequent antibiotics.
--- NOTE | 2022-01-07 12:30 | PC.NURSE ---
VORB ERP Okay to use harman-a-cath
[2022-01-07 12:36] LABS: Appearance Urine Slightly Cloudy (Clear); Bilirubin Urine 1+ (Negative); Color Urine Yellow (Yellow); Glucose Urine UA Negative (Negative); Ketones Urine Negative (Negative); Leukocyte Esterase Ur Negative LEU/UL (Negative); Nitrate Urine Negative (Negative); Protein Urine 2+ mg/dL (Negative); Urobilinogen Urine 0.2 mg/dL (<2.0); pH Urine 5.5 (5.0-9.0)
[2022-01-07 12:38] LABS: Add Urine Microscopic? YES; Blood Urine Trace-Intact (Negative)
[2022-01-07 12:43] LABS: NT Pro B Type Natriuretic Pept 212 pg/mL (5-100)
[2022-01-07 12:44] LABS: Mucus Urine Rare /lpf; Squamous Epithelial Cell Urine Rare /hpf (Few)
--- NOTE | 2022-01-07 12:58 | PM.IMHP ---
H&P: HPI History of Present Illness Date/Time: 01/07/22 12:58 Chief Complaint: Low blood pressure and high heart rate Narrative: This is a 71-year-old male patient who has a history of pancreatic malignancy with metastasis to the liver. The patient has ascites and had a successful ultrasound-guided paracentesis yielding 5000 mL of turbid yellow cloudy fluid on 12/31/2021. The patient stated that he is supposed to be undergoing chemotherapy and radiation. The patient appears jaundiced today is abdomen is distended. His heart rate is in the 120. White count 15.0. Urine is 1+ bilirubin and 10-15 wbc's. He is negative for COVID. C reactive protein is 21.8. He does have a history of having a PE and had a venous Doppler today which was read as patent left lower extremity veins no evidence of deep vein thrombosis. Chest x-ray was read as bibasilar infiltrates may represent atelectasis or pneumonia. Small right pleural effusion. The patient was placed on cefepime, vancomycin and started on lactated Ringer's. Patient's troponin is 0.053. AST is 171, ALT 158, and alkaline phosphatase 698. Patient was admitted to observation status on the date of service of 01/07/2022. Review of Systems Review of Systems: See HPI All systems reviewed & are unremarkable except as noted in HPI and below Constitutional: Constitutional: Reports as per HPI and Reports no additional constitutional complaints Eyes: Eyes: Reports as per HPI and Reports no additional eye complaints ENT: Reports system reviewed and no additional complaints, except as documented and Reports Normal hearing present Cardiovascular: Cardiovascular: Reports no additional cardiovascular complaints Respiratory: Respiratory: Reports no additional respiratory complaints and Reports no additional respiratory complaints Gastrointestinal: Gastrointestinal: Reports as per HPI and Reports no additional gastrointestinal complaints Musculoskeletal: Musculoskeletal: Reports no additional musculoskeletal complaints Integumentary/Breasts: Skin/Breast: Reports system reviewed and no additional complaints, except as docu and Reports as per HPI Neurologic: Reports system reviewed and no additional complaints, except as documented, Reports as per HPI and Reports Normal hearing present Psychiatric: Psychiatric: Reports no additional psychiatric complaints and Reports as per HPI Endocrine: Endocrine: Reports no additional endocrine complaints Hematologic/Lymphatic: Hematologic/Lymphatic: Reports no additional hematologic/lymphatic complaints Allergic/Immunologic: Allergic/Immunologic: Reports no additional allergic/immunologic complaints [facility] Past Medical History Medical History (Updated 01/07/22 @ 14:44 by Heaven Jimenes NP) Acute saddle pulmonary embolus Anemia Anxiety Chronic GERD Colon cancer screening DDD (degenerative disc disease) Epigastric pain Gout HTN (hypertension) Hyperlipidemia Liver mass Obesity Obesity (BMI 30-39.9) Pancreatic cancer With Mets to the liver Pancreatic mass Port-A-Cath in place Prevention of chemotherapy-induced neutropenia Pulmonary emboli Surgical History Surgical History History of back surgery fusion S/P tonsillectomy Family History Family History Mother CHF (congestive heart failure), NYHA class I Father ESRD (end stage renal disease) Social History Social History (Updated 01/07/22 @ 14:03 by Heaven Jimenes NP) Social History: He lives alone. He is . He would like his daughter to be poa. He is retired [employer]. He drinks 1-2 alcoholic beverages a day. He has one child, his daughter. code status full code Smoking packs per day: 2 Smoking cigarettes per day: 40.0 Years smoked: 30 Smoking pack-years: 60.00 Smoking status: Former smoker Tobacco type: cigarettes Second hand tob
[2022-01-07] MEDS: HYDROcodone/acetaminophen (*CRX) 7.5-325 MG TABLET 1 TAB PO ×2 (13:43→20:39)
--- NOTE | 2022-01-07 14:41 | PC.NURSE ---
Pt port a cath flushed and draws blood at this time. site WNL.
--- NOTE | 2022-01-07 14:56 | ADMGEN ---
This patient, Joshua Gray, was admitted to IMU Room 210-01 at 1451 on 01/07/2022. Patient/family oriented to hospital policies and general routines including ID bracelet, bed and alarms, visiting hours, pain management, procedures, bathroom and other care routines, personal items, smoking policy, room service/diet, and visiting hours. Information on how to activate the Rapid Response Team has been discussed. Patient/Family are encouraged to report perceived risks to care and to ask questions if they do not understand what they are told or what they should do.
[2022-01-07] MEDS: ALBUMIN HUMAN 25% 25 GM/100 ML 100 ML IVPB (15:50)
[2022-01-07] MEDS: LACTATED RINGERS 1,000 ML 125 ML IV CONT (15:50)
[2022-01-07] MEDS: FUROSEMIDE INJ 40 MG/4 ML VIAL 20 MG IV PUSH (15:50)
--- NOTE | 2022-01-07 15:55 | PM.CNCAR ---
Assessment and Plan Assessment and plan (1) Tachycardia: Code(s): R00.0 - Tachycardia, unspecified Status: Acute Assessment and Plan: Tachycardia is likely secondary to a combination of pulmonary embolism/dehydration. It is not atrial tachycardia or atrial flutter. It is a sinus mechanism. (2) Elevated troponin: Code(s): R77.8 - Other specified abnormalities of plasma proteins Status: Acute Assessment and Plan: Not related to ACS. (3) Pulmonary emboli: Code(s): I26.99 - Other pulmonary embolism without acute cor pulmonale Status: Acute Assessment and Plan: Continue anticoagulation (4) Pancreatic cancer: Code(s): C25.9 - Malignant neoplasm of pancreas, unspecified Status: Acute Assessment and Plan: Per oncology. He has significant ascites and may need a repeat paracentesis. History of Present Illness History of Present Illness Consult date/time: 01/07/22 15:55 Requesting physician: Jenn Carias MD Consult reason: Other (Elevated troponins, tachycardia) Reason For Visit: septic shock,dehydration,renal failure,tachycardia Narrative: Date of service 01/07/2022 Reason consultation elevated troponins, tachycardia Requesting provider: Dr. Carias History: Patient is 71-year-old male who has history of pancreatic cancer with metastasis to the liver. He recently had a paracentesis with removal of 5 L of fluid on 12/31/2021. He has undergone chemotherapy on 1 occasion. Splits to have a 2nd treatment today however he is found to be hypotensive, tachycardic and sent to the ER. He also has a history of pulmonary embolism and is on Eliquis. CRP of 21.8, white count 02900. Because of his low blood pressure, tachycardia, elevated troponins which were drawn in the ER he was admitted for further workup and evaluation. Patient states he has been progressively more short of breath the past week. He denies any chest pain, syncope, paroxysmal nocturnal dyspnea, orthopnea, edema or palpitations. Does have some dizziness whenever he stands up Review of Systems Review of Systems: All systems reviewed & are unremarkable except as noted in HPI and below Constitutional: Constitutional: Reports fatigue and Reports lethargy Eyes: Eyes: Denies blurry vision ENT: Reports Normal hearing present Cardiovascular: Cardiovascular: Denies chest pain Respiratory: Respiratory: Reports dyspnea and Reports dyspnea on exertion Gastrointestinal: Gastrointestinal: Reports bloating Genitourinary: Genitourinary: Denies hematuria Musculoskeletal: Musculoskeletal: Denies back pain Integumentary/Breasts: Skin/Breast: Denies dry skin Neurologic: Denies headache(s) Psychiatric: Psychiatric: Denies anxiety and Denies depression Endocrine: Endocrine: Denies excessive sweating Hematologic/Lymphatic: Hematologic/Lymphatic: Denies easy bleeding Allergic/Immunologic: Allergic/Immunologic: Denies GI upset with certain foods PMFSH Past Medical History Medical History Acute saddle pulmonary embolus Anemia Anxiety Chronic GERD Colon cancer screening DDD (degenerative disc disease) Epigastric pain Gout HTN (hypertension) Hyperlipidemia Liver mass Obesity Obesity (BMI 30-39.9) Pancreatic cancer With Mets to the liver Pancreatic mass Port-A-Cath in place Prevention of chemotherapy-induced neutropenia Pulmonary emboli Surgical History Surgical History History of back surgery fusion S/P tonsillectomy Family History Family History Mother CHF (congestive heart failure), NYHA class I Father ESRD (end stage renal disease) Social History Social History Social History: He lives alone. He is . He would like his daughter to be
[2022-01-07 16:16] LABS: Albumin Level 3.1 g/dL (3.5-5.1)
[2022-01-07 19:58] LABS: Troponin I 0.039 ng/mL (0.000-0.034)
[2022-01-07] MEDS: APIXABAN 5 MG TABLET PO (20:39)
[2022-01-07] MEDS: LORazepam (*CRX) 0.5 MG TABLET PO (22:01)
[2022-01-08] VITALS (12 sets, daily range): BP systolic 107–129; BP diastolic 60–67; PULSE 104–129; RESP 16–20; TEMP 36.3–37.2; O2SAT 96–100
[2022-01-08] MEDS: HYDROcodone/acetaminophen (*CRX) 7.5-325 MG TABLET 1 TAB PO ×6 (01:13→22:15)
[2022-01-08] MEDS: LACTATED RINGERS 1,000 ML 125 ML IV CONT ×2 (02:02→09:02)
[2022-01-08] MEDS: CENTRAL LINE FLUSH 10 ML IV PUSH ×3 (04:49→22:18)
[2022-01-08 05:18] LABS: Basophils Percent Auto 0.3 % (0.2-1.2); Eosinophils Absolute Auto 0.1 K/mm3 (0-0.3); Eosinophils Percent Auto 1.5 % (0-4.4); Hemoglobin 9.4 g/dL (14.0-18.0); Immature Granulocyte Percent A 1.1 % (0-0.5); Lymphocytes Absolute Auto 0.55 K/mm3 (0.9-3.2); Lymphocytes Percent Auto 5.8 % (18.3-44.2); Mean Corpuscular HGB Conc 33.6 g/dl (32-36); Mean Corpuscular Hemoglobin 30.3 pg (26-34); Mean Corpuscular Volume 90.3 fl (80-100); Mean Platelet Volume 10.7 fl (7.4-10.4); Monocytes Absolute Auto 0.9 K/mm3 (0.1-0.6); Monocytes Percent Auto 9.7 % (2.6-8.5); Neutrophils Absolute Auto 7.8 K/mm3 (1.3-6.7); Neutrophils Percent Auto 81.6 % (45.5-73.1); Platelet Count Result 309 k/mm3 (150-375); Red Cell Distribution Width 16.3 % (11.5-14.5); White Blood Count 9.5 K/mm3 (4.5-10.0)
[2022-01-08 05:26] LABS: Lactic Acid Reflex 0.7 mmol/L (0.7-2.0)
[2022-01-08 05:36] LABS: Alanine Aminotransferase 105 U/L (6-50); Albumin Level 2.9 g/dL (3.5-5.1); Alkaline Phosphatase 524 U/L (38-126); Anion Gap 9 mmol/L (8-16); Aspartate Amino Transferase 121 U/L (17-59); Bilirubin,Total 0.4 mg/dL (0.2-1.3); Blood Urea Nitrogen 58 mg/dL (9-20); Carbon Dioxide 23 mmol/L (22-30); Chloride 101 mmol/L (98-107); Estimated CRCL calculation 34 ml/min; Estimated Glomerular Filt Rate 37; Glucose 108 mg/dL (65-110); Lactate Dehydrogenase 209 U/L (120-246); Lipase 237 U/L (23-300); Magnesium 1.8 mg/dL (1.6-2.3); Phosphorus 3.7 mg/dL (2.5-4.5); Potassium 4.4 mmol/L (3.4-5.0); Sodium 133 mmol/L (137-145)
[2022-01-08 05:48] LABS: CRP 14.5 mg/dL (<1.0)
[2022-01-08] MEDS: allopurinoL 300 MG TABLET PO (09:02)
[2022-01-08] MEDS: APIXABAN 5 MG TABLET PO ×2 (09:04→20:31)
[2022-01-08] MEDS: MEGESTROL ACETATE (*CHEMO) ORAL SUSP 40 MG/ML SYR 200 MG PO (09:05)
[2022-01-08] MEDS: THERAPEUTIC MULTIVITAMINS/MINERALS TAB (*BKC) 1 TABLET PO (09:06)
--- NOTE | 2022-01-08 09:43 | PM.PNCARD ---
Progress Note: A&P Assessment and Plan (1) Tachycardia: Code(s): R00.0 - Tachycardia, unspecified Status: Acute Assessment and Plan: Tachycardia is likely secondary to a combination of pulmonary embolism/dehydration. It is not atrial tachycardia or atrial flutter. It is a sinus mechanism. No further cardiac recommendations. Patient may be transferred to the medical floor (2) Elevated troponin: Code(s): R77.8 - Other specified abnormalities of plasma proteins Status: Acute Assessment and Plan: Not related to ACS. (3) Pulmonary emboli: Code(s): I26.99 - Other pulmonary embolism without acute cor pulmonale Status: Acute Assessment and Plan: Continue anticoagulation (4) Pancreatic cancer: Code(s): C25.9 - Malignant neoplasm of pancreas, unspecified Status: Acute Assessment and Plan: Per oncology. He has significant ascites and may need a repeat paracentesis. Subjective Date/time seen: 01/08/22 09:43 71-year-old with pancreatic cancer, tachycardia, pulmonary embolism Date of service 01/08/2022: Feels a bit better today. Heart rate is improved but still elevated. Review of Systems Review of Systems: All systems reviewed & are unremarkable except as noted in HPI and below Constitutional: Constitutional: Denies excessive sweating, Reports fatigue, Denies headache(s) and Reports lethargy Eyes: Eyes: Denies blurry vision ENT: Reports Normal hearing present and Denies headache(s) Cardiovascular: Cardiovascular: Denies chest pain, Reports dyspnea and Reports dyspnea on exertion Respiratory: Respiratory: Reports dyspnea and Reports dyspnea on exertion Gastrointestinal: Gastrointestinal: Reports bloating Genitourinary: Genitourinary: Denies hematuria Musculoskeletal: Musculoskeletal: Denies back pain Integumentary/Breasts: Skin/Breast: Denies dry skin Neurologic: Reports Normal hearing present and Denies headache(s) Psychiatric: Psychiatric: Denies anxiety and Denies depression Endocrine: Endocrine: Denies excessive sweating and Reports fatigue Hematologic/Lymphatic: Hematologic/Lymphatic: Denies easy bleeding Allergic/Immunologic: Allergic/Immunologic: Denies GI upset with certain foods Exam Narrative: Patient is awake alert. Appears stated age Const: General: comfortable; No in distress HENMT: General nose exam: Normal nares present Mouth: Yes moist mucous membranes Eyes: General: appearance normal, both eyes and all related structures Sclera: sclerae normal Neck: Neck: supple Carotids: no bruits Chest: Other: No reproducible chest wall pain to palpation Resp: Effort & Inspection: normal respiratory effort Auscultation: diminished lung sounds Cardio: Rate: tachycardic Rhythm: regular rhythm GI: Inspection: distended Auscultation: normal bowel sounds Skin: General skin exam: normal color Neuro: Cranial nerves: Yes Normal hearing present Speech: normal speech Sensory Exam: normal sensation Extrem: General: normal to inspection Psych: Mental Status: mental status grossly normal Affect: normal affect Objective Data Vital Signs Vital Signs: Vital Signs - 24 hr 01/07/22 10:27 01/07/22 10:35 01/07/22 10:36 Temperature Pulse Rate 141 H 139 H 139 H Respiratory Rate 20 16 18 Blood Pressure 96/64 L 86/71 L Pulse Oximetry 100 100 99 Oxygen Delivery Room Air 01/07/22 10:49 01/07/22 11:00 01/07/22 11:24 Temperature Pulse Rate 132 H 137 H 124 H Respiratory Rate 23 H 29 H 19 Blood Pressure Pulse Oximetry 100 Oxygen Delivery 01/07/22 11:51 01/07/22 11:52 01/07/22 12:00 Temperature Pulse Rate 126 H 126 H 127 H Respiratory Rate 24 H 27 H 20 Blood Pressure 105/68 Pulse Oximetry 100 100 100 Oxygen Delivery 01/07/22 12:01 01/07/22 12:16 01/07/22 12:28 Temperature 36.8 C Pulse Rate 128 H 142 H Respiratory Rate 20 27 H Blood Pressure 98/73 L Pulse Ox
[2022-01-08] MEDS: SPIRONOLACTONE 12.5 MG TABLET PO ×2 (12:27→18:19)
[2022-01-08 14:17] LABS: Appearance Peritoneal Fluid Cloudy (Clear); Color Peritoneal Fluid Brown (Colorless); Source Peritoneal Fluid Peritoneal Fluid
[2022-01-08 14:19] LABS: Neutrophils Peritoneal Fluid 20 % (0-25)
[2022-01-08 14:20] LABS: Lymphocytes Peritoneal Fluid 42 %; Mesothelial Cells Peritoneal Fluid 2 %; Monocytes Peritoneal Fluid 30 %; Other Cells Peritoneal Fluid 2 %
[2022-01-08] MEDS: FUROSEMIDE 20 MG TABLET PO (14:50)
[2022-01-08] MEDS: PANTOPRAZOLE SODIUM IV 40 MG VIAL IV PUSH (14:50)
--- NOTE | 2022-01-08 18:07 | PM.IMPN ---
Progress Note: A&P Assessment and Plan (1) Severe sepsis: Code(s): A41.9 - Sepsis, unspecified organism; R65.20 - Severe sepsis without septic shock Status: Acute Assessment and Plan: -white count is noted to be 15.0 -possible UTI with abnormal urinalysis -possible SBP -urine and blood cultures pending -possible pneumonia -continue with cefepime and vancomycin. -tachycardia with hypotension -the patient was given IV fluid -the patient had a paracentesis approximately 8 days ago. His abdomen is very distended we are hoping for a paracentesis however the patient is on anticoagulation. Hopefully we can get cultures from the paracentesis. 01/08/2022 interval history: 71-year-old male with history of pancreatic malignancy with metastasis to the liver had developed ascites had a paracentesis on 01/07 and 5L was removed, there is concern for SBP being treated with Cefepime and vancomycin, also urine is suspicous for UTI, will gently diurese the patient with lasix 20 mg qd and spironolactone 12.5 mg BID, will monitor kidney function and urine output. will have PT/OT evaluate the patient, will continue to monitor. (2) Dehydration: Code(s): E86.0 - Dehydration Status: Acute Assessment and Plan: -gently hydrate the patient. -may consider albumin if patient's blood pressure continues to decrease -albumin may help with the ascites. (3) Tachycardia: Code(s): R00.0 - Tachycardia, unspecified Status: Acute Assessment and Plan: -could be related to pain -could be related to infection with sepsis -could be related to anxiety (4) Elevated troponin: Code(s): R77.8 - Other specified abnormalities of plasma proteins Status: Acute Assessment and Plan: -continue to trend -ER consulted Cardiology (5) Pancreatic cancer: Code(s): C25.9 - Malignant neoplasm of pancreas, unspecified Status: Acute Assessment and Plan: -ER consulted Oncology -the patient has pancreatic cancer that has metastasized (6) Pulmonary emboli: Code(s): I26.99 - Other pulmonary embolism without acute cor pulmonale Status: Acute Assessment and Plan: -continue with Eliquis (7) Anxiety: Code(s): F41.9 - Anxiety disorder, unspecified Status: Chronic Assessment and Plan: -continue with his home lorazepam p.o. if his blood pressure allows (8) Chronic GERD: Code(s): K21.9 - Gastro-esophageal reflux disease without esophagitis Status: Acute Assessment and Plan: -I did not start him on a PPI although he has been on omeprazole home. I PPI may increase his risk of SBP (9) Hyperlipidemia: Code(s): E78.5 - Hyperlipidemia, unspecified Status: Acute Assessment and Plan: It looks like patient may be on Co Q10 as a preventative measure. (10) HTN (hypertension): Code(s): I10 - Essential (primary) hypertension Status: Acute Assessment and Plan: -I will hold antihypertensive medicine for now as his blood pressure is low. (11) Acute on chronic renal failure: Code(s): N17.9 - Acute kidney failure, unspecified; N18.9 - Chronic kidney disease, unspecified Status: Acute Assessment and Plan: Patient's creatinine is 2.7 earlier this month was 5.8. May consider renal ultrasound. May consider Nephrology consult. (12) Anemia: Code(s): D64.9 - Anemia, unspecified Status: Acute Assessment and Plan: -chronic disease -at baseline Plan I spoke with the patient and his daughter the power energy attorney about his code status. The patient stated that he is working on the paperwork for the p.o. a as his daughter is the only 1 that could possibly do it. As of now the patient has still decided to be a full code. Subjective Date/time seen: 01/08/22 18:07 HPI-This is a 71-year-old male patient who has a history of pancreatic malignancy with metastasis to the liver.? The patien
[2022-01-08] MEDS: LORazepam (*CRX) 0.5 MG TABLET PO (20:48)
[2022-01-09] VITALS: PULSE 118
[2022-01-09] MEDS: HYDROcodone/acetaminophen (*CRX) 7.5-325 MG TABLET 1 TAB PO ×6 (02:15→22:02)
[2022-01-09 04:00] VITALS: BP 121/64; PULSE 110; RESP 16; TEMP 36.4; O2SAT 98
[2022-01-09] MEDS: CENTRAL LINE FLUSH 10 ML IV PUSH ×3 (06:15→22:01)
[2022-01-09 08:00] VITALS: BP 118/70; PULSE 113; RESP 16; TEMP 36.9; O2SAT 99
[2022-01-09 08:42] LABS: Hematocrit 28.9 % (42.0-52.0); Hemoglobin 9.6 g/dL (14.0-18.0); Mean Corpuscular HGB Conc 33.2 g/dl (32-36); Mean Corpuscular Hemoglobin 29.9 pg (26-34); Mean Platelet Volume 10.5 fl (7.4-10.4); Platelet Count Result 295 k/mm3 (150-375); Red Blood Count 3.21 M/mm3 (4.6-6.20); Red Cell Distribution Width 16.2 % (11.5-14.5); White Blood Count 10.4 K/mm3 (4.5-10.0)
[2022-01-09 08:58] LABS: Alanine Aminotransferase 79 U/L (6-50); Albumin Level 2.7 g/dL (3.5-5.1); Alkaline Phosphatase 478 U/L (38-126); Anion Gap 8 mmol/L (8-16); Aspartate Amino Transferase 78 U/L (17-59); Bilirubin,Total 0.4 mg/dL (0.2-1.3); Blood Urea Nitrogen 36 mg/dL (9-20); Calcium 8.7 mg/dL (8.4-10.2); Carbon Dioxide 22 mmol/L (22-30); Chloride 100 mmol/L (98-107); Estimated CRCL calculation 46 ml/min; Estimated Glomerular Filt Rate 55; Glucose 108 mg/dL (65-110); Magnesium 1.5 mg/dL (1.6-2.3); Potassium 4.3 mmol/L (3.4-5.0); Sodium 130 mmol/L (137-145)
--- NOTE | 2022-01-09 10:12 | PM.PNCARD ---
Progress Note: A&P Assessment and Plan (1) Tachycardia: Code(s): R00.0 - Tachycardia, unspecified Status: Acute Assessment and Plan: Tachycardia is likely secondary to a combination of pulmonary embolism/dehydration. It is not atrial tachycardia or atrial flutter. It is a sinus mechanism. No further cardiac recommendations. Patient may be transferred to the medical floor. Cardiology will sign off. Please do not hesitate to contact us with any further questions or concerns. (2) Elevated troponin: Code(s): R77.8 - Other specified abnormalities of plasma proteins Status: Acute Assessment and Plan: Not related to ACS. (3) Pulmonary emboli: Code(s): I26.99 - Other pulmonary embolism without acute cor pulmonale Status: Acute Assessment and Plan: Continue anticoagulation (4) Pancreatic cancer: Code(s): C25.9 - Malignant neoplasm of pancreas, unspecified Status: Acute Assessment and Plan: Per oncology. He has significant ascites and may need a repeat paracentesis. Subjective Date/time seen: 01/09/22 10:12 Cardiology follow up for SVT Feeling well today. No complaints of any kind. Denies any palpitations, chest pain, shortness of breath. Review of Systems Review of Systems: All systems reviewed & are unremarkable except as noted in HPI and below Constitutional: Constitutional: Denies excessive sweating, Reports fatigue, Denies headache(s) and Reports lethargy Eyes: Eyes: Denies blurry vision ENT: Reports Normal hearing present and Denies headache(s) Cardiovascular: Cardiovascular: Denies chest pain, Reports dyspnea and Reports dyspnea on exertion Respiratory: Respiratory: Reports dyspnea and Reports dyspnea on exertion Gastrointestinal: Gastrointestinal: Reports bloating Genitourinary: Genitourinary: Denies hematuria Musculoskeletal: Musculoskeletal: Denies back pain Integumentary/Breasts: Skin/Breast: Denies dry skin Neurologic: Reports Normal hearing present and Denies headache(s) Psychiatric: Psychiatric: Denies anxiety and Denies depression Endocrine: Endocrine: Denies excessive sweating and Reports fatigue Hematologic/Lymphatic: Hematologic/Lymphatic: Denies easy bleeding Allergic/Immunologic: Allergic/Immunologic: Denies GI upset with certain foods Exam Narrative: Patient is awake alert. Appears stated age Const: General: comfortable; No in distress HENMT: General nose exam: Normal nares present Mouth: Yes moist mucous membranes Eyes: General: appearance normal, both eyes and all related structures Sclera: sclerae normal Neck: Neck: supple Carotids: no bruits Chest: Other: No reproducible chest wall pain to palpation Resp: Effort & Inspection: normal respiratory effort Auscultation: diminished lung sounds Cardio: Rate: tachycardic Rhythm: regular rhythm GI: Inspection: distended Auscultation: normal bowel sounds Skin: General skin exam: normal color Neuro: Cranial nerves: Yes Normal hearing present Speech: normal speech Sensory Exam: normal sensation Extrem: General: normal to inspection Psych: Mental Status: mental status grossly normal Affect: normal affect Objective Data Vital Signs Vital Signs: Vital Signs - 24 hr 01/08/22 12:19 01/08/22 12:00 01/08/22 14:00 Temperature 36.6 C Pulse Rate 119 H 117 H 114 H Respiratory Rate 18 Blood Pressure 129/67 Pulse Oximetry 96 01/08/22 16:00 01/08/22 16:00 01/08/22 20:00 Temperature 36.5 C 36.8 C Pulse Rate 109 H 129 H 120 H Respiratory Rate 20 20 Blood Pressure 126/61 107/60 Pulse Oximetry 99 97 01/09/22 00:00 01/09/22 04:00 01/09/22 08:00 Temperature 36.4 C L 36.9 C Pulse Rate 118 H 110 H 113 H Respiratory Rate 16 16 Blood Pressure 121/64 118/70 Pulse Oximetry 98 99 Intake/Output Intake/Output: Intake & Output 01/06/22 01/07/22 01/08/22 01/09/22 23:59 23:59 23:59 23:59 Intake Total 6107
[2022-01-09] MEDS: LORazepam (*CRX) 0.5 MG TABLET PO ×2 (10:14→22:01)
[2022-01-09] MEDS: THERAPEUTIC MULTIVITAMINS/MINERALS TAB (*BKC) 1 TABLET PO (10:16)
[2022-01-09] MEDS: MEGESTROL ACETATE (*CHEMO) ORAL SUSP 40 MG/ML SYR 200 MG PO (10:16)
[2022-01-09] MEDS: SPIRONOLACTONE 12.5 MG TABLET PO ×2 (10:16→18:02)
[2022-01-09] MEDS: FUROSEMIDE 20 MG TABLET PO (10:16)
[2022-01-09] MEDS: PANTOPRAZOLE SODIUM IV 40 MG VIAL IV PUSH (10:17)
[2022-01-09] MEDS: allopurinoL 300 MG TABLET PO (10:17)
[2022-01-09] MEDS: APIXABAN 5 MG TABLET PO ×2 (10:17→20:36)
[2022-01-09] MEDS: ALTEPLASE 2 MG VIAL (CATHFLO) IV PUSH (11:40)
[2022-01-09 12:00] VITALS: BP 106/59; PULSE 123; RESP 18; TEMP 37.2; O2SAT 96
[2022-01-09 16:00] VITALS: BP 106/62; PULSE 123; RESP 18; TEMP 37; O2SAT 95
--- NOTE | 2022-01-09 18:17 | PM.IMPN ---
Progress Note: A&P Assessment and Plan (1) Severe sepsis: Code(s): A41.9 - Sepsis, unspecified organism; R65.20 - Severe sepsis without septic shock Status: Acute Assessment and Plan: -white count is noted to be 15.0 -possible UTI with abnormal urinalysis -possible SBP -urine and blood cultures pending -possible pneumonia -continue with cefepime and vancomycin. -tachycardia with hypotension -the patient was given IV fluid -the patient had a paracentesis approximately 8 days ago. His abdomen is very distended we are hoping for a paracentesis however the patient is on anticoagulation. Hopefully we can get cultures from the paracentesis. 01/08/2022 interval history: 71-year-old male with history of pancreatic malignancy with metastasis to the liver had developed ascites had a paracentesis on 01/07 and 5L was removed, there is concern for SBP being treated with Cefepime and vancomycin, also urine is suspicous for UTI, will gently diurese the patient with lasix 20 mg qd and spironolactone 12.5 mg BID, will monitor kidney function and urine output. will have PT/OT evaluate the patient, will continue to monitor. 01/09/2022 interval history: 71-year-old male with history of pancreatic malignancy with metastasis to the liver had developed ascites had a paracentesis on 01/07 and 5L was removed, there is concern for SBP being treated with Cefepime and vancomycin, also urine is suspicious for UTI, will gently diurese the patient with lasix 20 mg qd and spironolactone 12.5 mg BID, patient BUN and creatinin has improved, patient sodium is low, will place patient on fluid restriction 1600cc per day, will monitor kidney function and urine output. will have PT/OT evaluate the patient, will continue to monitor. (2) Dehydration: Code(s): E86.0 - Dehydration Status: Acute Assessment and Plan: -gently hydrate the patient. -may consider albumin if patient's blood pressure continues to decrease -albumin may help with the ascites. (3) Tachycardia: Code(s): R00.0 - Tachycardia, unspecified Status: Acute Assessment and Plan: -could be related to pain -could be related to infection with sepsis -could be related to anxiety (4) Elevated troponin: Code(s): R77.8 - Other specified abnormalities of plasma proteins Status: Acute Assessment and Plan: -continue to trend -ER consulted Cardiology (5) Pancreatic cancer: Code(s): C25.9 - Malignant neoplasm of pancreas, unspecified Status: Acute Assessment and Plan: -ER consulted Oncology -the patient has pancreatic cancer that has metastasized (6) Pulmonary emboli: Code(s): I26.99 - Other pulmonary embolism without acute cor pulmonale Status: Acute Assessment and Plan: -continue with Eliquis (7) Anxiety: Code(s): F41.9 - Anxiety disorder, unspecified Status: Chronic Assessment and Plan: -continue with his home lorazepam p.o. if his blood pressure allows (8) Chronic GERD: Code(s): K21.9 - Gastro-esophageal reflux disease without esophagitis Status: Acute Assessment and Plan: -I did not start him on a PPI although he has been on omeprazole home. I PPI may increase his risk of SBP (9) Hyperlipidemia: Code(s): E78.5 - Hyperlipidemia, unspecified Status: Acute Assessment and Plan: It looks like patient may be on Co Q10 as a preventative measure. (10) HTN (hypertension): Code(s): I10 - Essential (primary) hypertension Status: Acute Assessment and Plan: -I will hold antihypertensive medicine for now as his blood pressure is low. (11) Acute on chronic renal failure: Code(s): N17.9 - Acute kidney failure, unspecified; N18.9 - Chronic kidney disease, unspecified Status: Acute Assessment and Plan: Patient's creatinine is 2.7 earlier this month was 5.8. May consider renal ultrasound. May consider Nephrolo
[2022-01-09 20:00] VITALS: BP 98/62; PULSE 125; RESP 18; TEMP 36.5; O2SAT 96
[2022-01-10] VITALS: PULSE 120; RESP 22; O2SAT 99
[2022-01-10] MEDS: HYDROcodone/acetaminophen (*CRX) 7.5-325 MG TABLET 1 TAB PO ×5 (02:00→20:48)
[2022-01-10 05:50] LABS: Hematocrit 28.8 % (42.0-52.0); Hemoglobin 9.7 g/dL (14.0-18.0); Mean Corpuscular HGB Conc 33.7 g/dl (32-36); Mean Corpuscular Hemoglobin 30.3 pg (26-34); Mean Platelet Volume 11.1 fl (7.4-10.4); Platelet Count Result 317 k/mm3 (150-375); White Blood Count 10.6 K/mm3 (4.5-10.0)
[2022-01-10 06:09] LABS: Alanine Aminotransferase 66 U/L (6-50); Albumin Level 2.7 g/dL (3.5-5.1); Alkaline Phosphatase 471 U/L (38-126); Anion Gap 7 mmol/L (8-16); Aspartate Amino Transferase 68 U/L (17-59); Bilirubin,Total 0.6 mg/dL (0.2-1.3); Blood Urea Nitrogen 30 mg/dL (9-20); Calcium 8.7 mg/dL (8.4-10.2); Carbon Dioxide 24 mmol/L (22-30); Chloride 100 mmol/L (98-107); Estimated CRCL calculation 49 ml/min; Estimated Glomerular Filt Rate 60; Glucose 103 mg/dL (65-110); Magnesium 1.5 mg/dL (1.6-2.3); Potassium 4.5 mmol/L (3.4-5.0); Sodium 131 mmol/L (137-145)
[2022-01-10] MEDS: CENTRAL LINE FLUSH 10 ML IV PUSH ×3 (06:39→21:50)
[2022-01-10 08:00] VITALS: BP 112/69; PULSE 116; RESP 14; TEMP 37.3; O2SAT 98
[2022-01-10] MEDS: NONFORMULARY NUTRITIONAL SUPPLEMENT 1 EACH XX (08:27)
[2022-01-10] MEDS: MAGNESIUM SULF 2 GM/WATER 50ML 2 GM/50 ML BAG IVPB (09:13)
[2022-01-10] MEDS: MAGNESIUM OXIDE 400 MG TABLET PO (09:14)
[2022-01-10] MEDS: allopurinoL 300 MG TABLET PO (09:14)
[2022-01-10] MEDS: APIXABAN 5 MG TABLET PO ×2 (09:14→20:48)
[2022-01-10] MEDS: FUROSEMIDE 20 MG TABLET PO (09:14)
[2022-01-10] MEDS: THERAPEUTIC MULTIVITAMINS/MINERALS TAB (*BKC) 1 TABLET PO (09:14)
[2022-01-10] MEDS: MEGESTROL ACETATE (*CHEMO) ORAL SUSP 40 MG/ML SYR 200 MG PO (09:15)
[2022-01-10] MEDS: SPIRONOLACTONE 25 MG TABLET PO ×2 (09:15→16:33)
[2022-01-10] MEDS: PANTOPRAZOLE SODIUM IV 40 MG VIAL IV PUSH (09:15)
[2022-01-10] MEDS: LORazepam (*CRX) 0.5 MG TABLET PO (09:41)
--- NOTE | 2022-01-10 14:32 | PM.IMPN ---
Progress Note: A&P Assessment and Plan (1) Severe sepsis: Code(s): A41.9 - Sepsis, unspecified organism; R65.20 - Severe sepsis without septic shock Status: Acute Assessment and Plan: -white count is noted to be 15.0 -possible UTI with abnormal urinalysis -possible SBP -urine and blood cultures pending -possible pneumonia -continue with cefepime and vancomycin. -tachycardia with hypotension -the patient was given IV fluid -the patient had a paracentesis approximately 8 days ago. His abdomen is very distended we are hoping for a paracentesis however the patient is on anticoagulation. Hopefully we can get cultures from the paracentesis. 01/08/2022 interval history: 71-year-old male with history of pancreatic malignancy with metastasis to the liver had developed ascites had a paracentesis on 01/07 and 5L was removed, there is concern for SBP being treated with Cefepime and vancomycin, also urine is suspicous for UTI, will gently diurese the patient with lasix 20 mg qd and spironolactone 12.5 mg BID, will monitor kidney function and urine output. will have PT/OT evaluate the patient, will continue to monitor. 01/09/2022 interval history: 71-year-old male with history of pancreatic malignancy with metastasis to the liver had developed ascites had a paracentesis on 01/07 and 5L was removed, there is concern for SBP being treated with Cefepime and vancomycin, also urine is suspicious for UTI, will gently diurese the patient with lasix 20 mg qd and spironolactone 12.5 mg BID, patient BUN and creatinin has improved, patient sodium is low, will place patient on fluid restriction 1600cc per day, will monitor kidney function and urine output. will have PT/OT evaluate the patient, will continue to monitor. 01/10/2022 interval history: 71-year-old male with history of pancreatic malignancy with metastasis to the liver had developed ascites had a paracentesis on 01/07 and 5L was removed, there is concern for SBP being treated with Cefepime and vancomycin, however no growth so far, also urine is suspicious for UTI culture no growth so far, will gently diurese the patient with lasix 20 mg qd and will increase spironolactone to 25mg BID from 12.5 mg BID, patient BUN and creatinine has improved, patient sodium is low, will place patient on fluid restriction 1600cc per day, will monitor kidney function and urine output. will have PT/OT evaluate the patient, will continue to monitor. (2) Dehydration: Code(s): E86.0 - Dehydration Status: Acute Assessment and Plan: -gently hydrate the patient. -may consider albumin if patient's blood pressure continues to decrease -albumin may help with the ascites. (3) Tachycardia: Code(s): R00.0 - Tachycardia, unspecified Status: Acute Assessment and Plan: -could be related to pain -could be related to infection with sepsis -could be related to anxiety (4) Elevated troponin: Code(s): R77.8 - Other specified abnormalities of plasma proteins Status: Acute Assessment and Plan: -continue to trend -ER consulted Cardiology (5) Pancreatic cancer: Code(s): C25.9 - Malignant neoplasm of pancreas, unspecified Status: Acute Assessment and Plan: -ER consulted Oncology -the patient has pancreatic cancer that has metastasized (6) Pulmonary emboli: Code(s): I26.99 - Other pulmonary embolism without acute cor pulmonale Status: Acute Assessment and Plan: -continue with Eliquis (7) Anxiety: Code(s): F41.9 - Anxiety disorder, unspecified Status: Chronic Assessment and Plan: -continue with his home lorazepam p.o. if his blood pressure allows (8) Chronic GERD: Code(s): K21.9 - Gastro-esophageal reflux disease without esophagitis Status: Acute Assessment and Plan: -I did not start him on a PPI although he has been on omeprazole home. I PPI may increase his risk of SBP (9) Hyperlipi
[2022-01-10 16:00] VITALS: BP 106/67; PULSE 130; RESP 18; TEMP 36.5; O2SAT 98
[2022-01-10 20:00] VITALS: BP 110/59; PULSE 118; RESP 18; TEMP 36.6; O2SAT 97
--- NOTE | 2022-01-10 22:47 | PC.NURSE ---
This patient, Joshua Gray, was received from [[facility] [id number] ] on 01/10/22 at 2247. Patient/family oriented to unit policies and routines
--- NOTE | 2022-01-10 22:49 | PC.NURSE ---
This patient, Joshua Gray, was transferred to [[id number]] on 01/10/22 at 2249. Personal belongings sent with patient. Report given to [LYNDSAY Ramires]. Appropriate documentation sent with patient.
[2022-01-11 00:38] VITALS: BP 128/72; PULSE 120; RESP 18; TEMP 36.3; O2SAT 100
[2022-01-11] MEDS: HYDROcodone/acetaminophen (*CRX) 7.5-325 MG TABLET 1 TAB PO ×6 (01:07→22:33)
[2022-01-11 05:04] VITALS: BP 119/71; PULSE 122; RESP 18; TEMP 36.3; O2SAT 98
[2022-01-11] MEDS: CENTRAL LINE FLUSH 10 ML IV PUSH ×3 (05:07→22:34)
[2022-01-11] MEDS: LORazepam (*CRX) 0.5 MG TABLET PO ×2 (05:07→22:33)
[2022-01-11 05:34] LABS: Alanine Aminotransferase 57 U/L (6-50); Albumin Level 2.9 g/dL (3.5-5.1); Alkaline Phosphatase 463 U/L (38-126); Anion Gap 10 mmol/L (8-16); Aspartate Amino Transferase 92 U/L (17-59); Bilirubin,Total 0.5 mg/dL (0.2-1.3); Blood Urea Nitrogen 27 mg/dL (9-20); Calcium 8.5 mg/dL (8.4-10.2); Carbon Dioxide 22 mmol/L (22-30); Chloride 100 mmol/L (98-107); Estimated CRCL calculation 49 ml/min; Estimated Glomerular Filt Rate 60; Glucose 110 mg/dL (65-110); Magnesium 1.8 mg/dL (1.6-2.3); Potassium 4.6 mmol/L (3.4-5.0); Sodium 132 mmol/L (137-145)
[2022-01-11 06:00] LABS: Hematocrit 29.4 % (42.0-52.0); Hemoglobin 9.9 g/dL (14.0-18.0); Mean Corpuscular HGB Conc 33.7 g/dl (32-36); Mean Corpuscular Hemoglobin 30.4 pg (26-34); Mean Corpuscular Volume 90.2 fl (80-100); Mean Platelet Volume 10.6 fl (7.4-10.4); Platelet Count Result 325 k/mm3 (150-375); Red Blood Count 3.26 M/mm3 (4.6-6.20); White Blood Count 10.6 K/mm3 (4.5-10.0)
[2022-01-11] MEDS: MAGNESIUM OXIDE 400 MG TABLET PO (09:43)
[2022-01-11] MEDS: FUROSEMIDE 20 MG TABLET PO (09:43)
[2022-01-11] MEDS: APIXABAN 5 MG TABLET PO ×2 (09:43→21:58)
[2022-01-11] MEDS: MEGESTROL ACETATE (*CHEMO) ORAL SUSP 40 MG/ML SYR 200 MG PO (09:44)
[2022-01-11] MEDS: PANTOPRAZOLE SODIUM IV 40 MG VIAL IV PUSH (09:44)
[2022-01-11] MEDS: SPIRONOLACTONE 25 MG TABLET PO ×2 (09:44→17:17)
[2022-01-11] MEDS: THERAPEUTIC MULTIVITAMINS/MINERALS TAB (*BKC) 1 TABLET PO (09:44)
[2022-01-11] MEDS: allopurinoL 300 MG TABLET PO (10:02)
--- NOTE | 2022-01-11 12:53 | PM.IMPN ---
Progress Note: A&P Assessment and Plan (1) Severe sepsis: Code(s): A41.9 - Sepsis, unspecified organism; R65.20 - Severe sepsis without septic shock Status: Acute Assessment and Plan: -white count is noted to be 15.0 -possible UTI with abnormal urinalysis -possible SBP -urine and blood cultures pending -possible pneumonia -continue with cefepime and vancomycin. -tachycardia with hypotension -the patient was given IV fluid -the patient had a paracentesis approximately 8 days ago. His abdomen is very distended we are hoping for a paracentesis however the patient is on anticoagulation. Hopefully we can get cultures from the paracentesis. 01/08/2022 interval history: 71-year-old male with history of pancreatic malignancy with metastasis to the liver had developed ascites had a paracentesis on 01/07 and 5L was removed, there is concern for SBP being treated with Cefepime and vancomycin, also urine is suspicous for UTI, will gently diurese the patient with lasix 20 mg qd and spironolactone 12.5 mg BID, will monitor kidney function and urine output. will have PT/OT evaluate the patient, will continue to monitor. 01/09/2022 interval history: 71-year-old male with history of pancreatic malignancy with metastasis to the liver had developed ascites had a paracentesis on 01/07 and 5L was removed, there is concern for SBP being treated with Cefepime and vancomycin, also urine is suspicious for UTI, will gently diurese the patient with lasix 20 mg qd and spironolactone 12.5 mg BID, patient BUN and creatinin has improved, patient sodium is low, will place patient on fluid restriction 1600cc per day, will monitor kidney function and urine output. will have PT/OT evaluate the patient, will continue to monitor. 01/10/2022 interval history: 71-year-old male with history of pancreatic malignancy with metastasis to the liver had developed ascites had a paracentesis on 01/07 and 5L was removed, there is concern for SBP being treated with Cefepime and vancomycin, however no growth so far, also urine is suspicious for UTI culture no growth so far, will gently diurese the patient with lasix 20 mg qd and will increase spironolactone to 25mg BID from 12.5 mg BID, patient BUN and creatinine has improved, patient sodium is low, will place patient on fluid restriction 1600cc per day, will monitor kidney function and urine output. will have PT/OT evaluate the patient, will continue to monitor. 01/11/2022 interval history: 71-year-old male with history of pancreatic malignancy with metastasis to the liver had developed ascites had a paracentesis on 01/07 and 5L was removed, there is concern for SBP abdominal exam does not show any peritonitis, being treated with Cefepime and vancomycin, however no growth so far, also urine is suspicious for UTI culture no growth so far, will CPM again discuss with ID pharmacy on Thursday and plan, will gently diurese the patient with lasix 20 mg qd and will increase spironolactone to 25mg BID from 12.5 mg BID, patient BUN and creatinine has improved, patient sodium is low, will place patient on fluid restriction 1600cc per day patient sodium is trending up. , will monitor kidney function and urine output. will have PT/OT evaluate the patient, will continue to monitor. (2) Dehydration: Code(s): E86.0 - Dehydration Status: Acute Assessment and Plan: -gently hydrate the patient. -may consider albumin if patient's blood pressure continues to decrease -albumin may help with the ascites. (3) Tachycardia: Code(s): R00.0 - Tachycardia, unspecified Status: Acute Assessment and Plan: -could be related to pain -could be related to infection with sepsis -could be related to anxiety (4) Elevated troponin: Code(s): R77.8 - Other specified abnormalities of plasma proteins Status: Acute Assessment and Plan: -continue to trend -ER consulted Cardiology (5) Pancreatic cancer:
[2022-01-11 14:05] VITALS: BP 127/68; PULSE 124; RESP 16; TEMP 37; O2SAT 97
[2022-01-11 20:18] VITALS: BP 107/67; PULSE 119; RESP 18; TEMP 36.4; O2SAT 97
[2022-01-11 20:49] LABS: LDH Peritoneal Fluid 563 U/L (<63); Total Protein Peritoneal Fluid 3.8 g/dL
[2022-01-11 20:57] LABS: Glucose Peritoneal Fluid 101 mg/dL
[2022-01-12] MEDS: HYDROcodone/acetaminophen (*CRX) 7.5-325 MG TABLET 1 TAB PO ×5 (02:53→20:58)
[2022-01-12 04:39] VITALS: BP 120/72; PULSE 122; RESP 18; TEMP 36.2; O2SAT 98
[2022-01-12] MEDS: CENTRAL LINE FLUSH 10 ML IV PUSH ×3 (04:49→21:00)
[2022-01-12 04:53] LABS: Hematocrit 30.1 % (42.0-52.0); Mean Corpuscular HGB Conc 33.2 g/dl (32-36); Mean Corpuscular Hemoglobin 29.9 pg (26-34); Mean Corpuscular Volume 90.1 fl (80-100); Mean Platelet Volume 10.2 fl (7.4-10.4); Platelet Count Result 348 k/mm3 (150-375); Red Blood Count 3.34 M/mm3 (4.6-6.20); Red Cell Distribution Width 16.1 % (11.5-14.5); White Blood Count 10.4 K/mm3 (4.5-10.0)
[2022-01-12 05:06] LABS: Alanine Aminotransferase 53 U/L (6-50); Alkaline Phosphatase 464 U/L (38-126); Anion Gap 7 mmol/L (8-16); Aspartate Amino Transferase 84 U/L (17-59); Bilirubin,Total 0.5 mg/dL (0.2-1.3); Blood Urea Nitrogen 24 mg/dL (9-20); Calcium 8.6 mg/dL (8.4-10.2); Carbon Dioxide 24 mmol/L (22-30); Chloride 98 mmol/L (98-107); Estimated CRCL calculation 49 ml/min; Estimated Glomerular Filt Rate 60; Glucose 111 mg/dL (65-110); Magnesium 1.8 mg/dL (1.6-2.3); Potassium 4.7 mmol/L (3.4-5.0); Sodium 129 mmol/L (137-145)
[2022-01-12] MEDS: allopurinoL 300 MG TABLET PO (10:07)
[2022-01-12] MEDS: APIXABAN 5 MG TABLET PO ×2 (10:08→20:59)
[2022-01-12] MEDS: FUROSEMIDE 20 MG TABLET PO ×2 (10:08→16:52)
[2022-01-12] MEDS: MAGNESIUM OXIDE 400 MG TABLET PO (10:09)
[2022-01-12] MEDS: MEGESTROL ACETATE (*CHEMO) ORAL SUSP 40 MG/ML SYR 200 MG PO (10:09)
[2022-01-12] MEDS: SPIRONOLACTONE 25 MG TABLET PO ×2 (10:11→16:52)
[2022-01-12] MEDS: THERAPEUTIC MULTIVITAMINS/MINERALS TAB (*BKC) 1 TABLET PO (10:11)
[2022-01-12] MEDS: PANTOPRAZOLE SODIUM IV 40 MG VIAL IV PUSH (10:12)
--- NOTE | 2022-01-12 12:55 | PM.IMPN ---
Progress Note: A&P Assessment and Plan (1) Severe sepsis: Code(s): A41.9 - Sepsis, unspecified organism; R65.20 - Severe sepsis without septic shock Status: Acute Assessment and Plan: -white count is noted to be 15.0 -possible UTI with abnormal urinalysis -possible SBP -urine and blood cultures pending -possible pneumonia -continue with cefepime and vancomycin. -tachycardia with hypotension -the patient was given IV fluid -the patient had a paracentesis approximately 8 days ago. His abdomen is very distended we are hoping for a paracentesis however the patient is on anticoagulation. Hopefully we can get cultures from the paracentesis. 01/08/2022 interval history: 71-year-old male with history of pancreatic malignancy with metastasis to the liver had developed ascites had a paracentesis on 01/07 and 5L was removed, there is concern for SBP being treated with Cefepime and vancomycin, also urine is suspicous for UTI, will gently diurese the patient with lasix 20 mg qd and spironolactone 12.5 mg BID, will monitor kidney function and urine output. will have PT/OT evaluate the patient, will continue to monitor. 01/09/2022 interval history: 71-year-old male with history of pancreatic malignancy with metastasis to the liver had developed ascites had a paracentesis on 01/07 and 5L was removed, there is concern for SBP being treated with Cefepime and vancomycin, also urine is suspicious for UTI, will gently diurese the patient with lasix 20 mg qd and spironolactone 12.5 mg BID, patient BUN and creatinin has improved, patient sodium is low, will place patient on fluid restriction 1600cc per day, will monitor kidney function and urine output. will have PT/OT evaluate the patient, will continue to monitor. 01/10/2022 interval history: 71-year-old male with history of pancreatic malignancy with metastasis to the liver had developed ascites had a paracentesis on 01/07 and 5L was removed, there is concern for SBP being treated with Cefepime and vancomycin, however no growth so far, also urine is suspicious for UTI culture no growth so far, will gently diurese the patient with lasix 20 mg qd and will increase spironolactone to 25mg BID from 12.5 mg BID, patient BUN and creatinine has improved, patient sodium is low, will place patient on fluid restriction 1600cc per day, will monitor kidney function and urine output. will have PT/OT evaluate the patient, will continue to monitor. 01/11/2022 interval history: 71-year-old male with history of pancreatic malignancy with metastasis to the liver had developed ascites had a paracentesis on 01/07 and 5L was removed, there is concern for SBP abdominal exam does not show any peritonitis, being treated with Cefepime and vancomycin, however no growth so far, also urine is suspicious for UTI culture no growth so far, will CPM again discuss with ID pharmacy on Thursday and plan, will gently diurese the patient with lasix 20 mg qd and will increase spironolactone to 25mg BID from 12.5 mg BID, patient BUN and creatinine has improved, patient sodium is low, will place patient on fluid restriction 1600cc per day patient sodium is trending up. , will monitor kidney function and urine output. will have PT/OT evaluate the patient, will continue to monitor. 01/12/2022 interval history: 71-year-old male with history of pancreatic malignancy with metastasis to the liver had developed ascites had a paracentesis on 01/07 and 5L was removed, there is concern for SBP abdominal exam does not show any peritonitis, being treated with Cefepime and vancomycin, however no growth so far, also urine is suspicious for UTI culture no growth so far, will CPM again discuss with ID pharmacy on Thursday and plan, patient is being gently diuresed with lasix 20 mg qd will increased to BID, and on 01/11 increased spironolactone to 25mg BID from 12.5 mg BID, patient BUN and creatinine has improved, patient sodium is low, will place patient on fluid restrictio
[2022-01-12 14:20] VITALS: BP 114/69; PULSE 108; RESP 14; TEMP 36.6; O2SAT 99
[2022-01-12 20:14] VITALS: BP 114/72; PULSE 120; RESP 18; TEMP 37.1; O2SAT 98
[2022-01-12] MEDS: LORazepam (*CRX) 0.5 MG TABLET PO (20:59)
[2022-01-13] MEDS: HYDROcodone/acetaminophen (*CRX) 7.5-325 MG TABLET 1 TAB PO ×3 (01:10→10:27)
[2022-01-13] MEDS: CENTRAL LINE FLUSH 10 ML IV PUSH ×2 (05:54→13:05)
[2022-01-13 06:00] VITALS: BP 127/75; PULSE 120; RESP 118; TEMP 36.6; O2SAT 98
[2022-01-13 06:09] LABS: Hematocrit 30.4 % (42.0-52.0); Hemoglobin 10.3 g/dL (14.0-18.0); Mean Corpuscular HGB Conc 33.9 g/dl (32-36); Mean Corpuscular Hemoglobin 30.3 pg (26-34); Mean Corpuscular Volume 89.4 fl (80-100); Mean Platelet Volume 10.4 fl (7.4-10.4); Platelet Count Result 381 k/mm3 (150-375); Red Cell Distribution Width 16.2 % (11.5-14.5); White Blood Count 10.8 K/mm3 (4.5-10.0)
[2022-01-13 06:24] LABS: Alanine Aminotransferase 52 U/L (6-50); Albumin Level 3.1 g/dL (3.5-5.1); Alkaline Phosphatase 457 U/L (38-126); Anion Gap 9 mmol/L (8-16); Aspartate Amino Transferase 81 U/L (17-59); Bilirubin,Total 0.6 mg/dL (0.2-1.3); Blood Urea Nitrogen 26 mg/dL (9-20); Calcium 9.1 mg/dL (8.4-10.2); Carbon Dioxide 21 mmol/L (22-30); Chloride 98 mmol/L (98-107); Estimated CRCL calculation 46 ml/min; Estimated Glomerular Filt Rate 55; Glucose 108 mg/dL (65-110); Magnesium 1.9 mg/dL (1.6-2.3); Potassium 4.4 mmol/L (3.4-5.0); Sodium 128 mmol/L (137-145)
[2022-01-13] MEDS: PANTOPRAZOLE SODIUM IV 40 MG VIAL IV PUSH (08:16)
[2022-01-13] MEDS: MEGESTROL ACETATE (*CHEMO) ORAL SUSP 40 MG/ML SYR 200 MG PO (08:16)
[2022-01-13] MEDS: SPIRONOLACTONE 25 MG TABLET PO (08:17)
[2022-01-13] MEDS: FUROSEMIDE 20 MG TABLET PO (08:17)
[2022-01-13] MEDS: THERAPEUTIC MULTIVITAMINS/MINERALS TAB (*BKC) 1 TABLET PO (08:17)
[2022-01-13] MEDS: MAGNESIUM OXIDE 400 MG TABLET PO (08:17)
[2022-01-13] MEDS: allopurinoL 300 MG TABLET PO (08:17)
[2022-01-13] MEDS: APIXABAN 5 MG TABLET PO (08:17)
[2022-01-13] MEDS: LORazepam (*CRX) 0.5 MG TABLET PO (11:50)
--- NOTE | 2022-01-13 12:34 | P.DS_ITS ---
DS: Admitting Diagnosis Discharge Date 01/13/2022 Admitting Diagnosis Low blood pressure and high heart rate DS: Discharge Diagnosis Discharge Diagnosis (1) Severe sepsis: Code(s): A41.9 - Sepsis, unspecified organism; R65.20 - Severe sepsis without septic shock Status: Acute Assessment and Plan: -white count is noted to be 15.0 -possible UTI with abnormal urinalysis -possible SBP -urine and blood cultures pending -possible pneumonia -continue with cefepime and vancomycin. -tachycardia with hypotension -the patient was given IV fluid -the patient had a paracentesis approximately 8 days ago. His abdomen is very distended we are hoping for a paracentesis however the patient is on anticoagulation. Hopefully we can get cultures from the paracentesis. 01/08/2022 interval history: 71-year-old male with history of pancreatic malignancy with metastasis to the liver had developed ascites had a paracentesis on 01/07 and 5L was removed, there is concern for SBP being treated with Cefepime and vancomycin, also urine is suspicous for UTI, will gently diurese the patient with lasix 20 mg qd and spironolactone 12.5 mg BID, will monitor kidney function and urine output. will have PT/OT evaluate the patient, will continue to monitor. 01/09/2022 interval history: 71-year-old male with history of pancreatic malignancy with metastasis to the liver had developed ascites had a paracentesis on 01/07 and 5L was removed, there is concern for SBP being treated with Cefepime and vancomycin, also urine is suspicious for UTI, will gently diurese the patient with lasix 20 mg qd and spironolactone 12.5 mg BID, patient BUN and creatinin has improved, patient sodium is low, will place patient on fluid restriction 1600cc per day, will monitor kidney function and urine output. will have PT/OT evaluate the patient, will continue to monitor. 01/10/2022 interval history: 71-year-old male with history of pancreatic malignancy with metastasis to the liver had developed ascites had a paracentesis on 01/07 and 5L was removed, there is concern for SBP being treated with Cefepime and vancomycin, however no growth so far, also urine is suspicious for UTI culture no growth so far, will gently diurese the patient with lasix 20 mg qd and will increase spironolactone to 25mg BID from 12.5 mg BID, patient BUN and creatinine has improved, patient sodium is low, will place patient on fluid restriction 1600cc per day, will monitor kidney function and urine output. will have PT/OT evaluate the patient, will continue to monitor. 01/11/2022 interval history: 71-year-old male with history of pancreatic malignancy with metastasis to the liver had developed ascites had a paracentesis on 01/07 and 5L was removed, there is concern for SBP abdominal exam does not show any peritonitis, being treated with Cefepime and vancomycin, however no growth so far, also urine is suspicious for UTI culture no growth so far, will CPM again discuss with ID pharmacy on Thursday and plan, will gently diurese the patient with lasix 20 mg qd and will increase spironolactone to 25mg BID from 12.5 mg BID, patient BUN and creatinine has improved, patient sodium is low, will place patient on fluid restriction 1600cc per day patient sodium is trending up. , will monitor kidney function and urine output. will have PT/OT evaluate the patient, will continue to monitor. 01/12/2022 interval history: 71-year-old male with history of pancreatic malignancy with metastasis to the liver had developed ascites had a paracentesis on 01/07 and 5L was removed, there is concern for SBP abdominal exam does not show any peritonitis, being treated with Cefepime and vancomycin, however no growth so
--- NOTE | 2022-01-13 12:54 | PC.NURSE ---
Confirmed with Dr Vaca to deactivate access to left chest port.
[2022-01-13] MEDS: HEPARIN SODIUM LOCK FLUSH 500 UNITS/5 ML SYRINGE IV PUSH (13:05)
== END 2022-01-13 13:20 | disposition home or self-care (01) | DRG 872 ==
LOC: ANHED 14:04 → ANHIMU 14:14 → ANH3MED 01-10 22:51
PROVIDERS: Nurse Practitioner; Admitting Provider Hospitalist; Emergency Provider Emergency Medicine; PCP Internal Medicine; Visit Provider Family Medicine
DX: A41.9 Sepsis, unspecified organism (principal); C25.9 Malignant neoplasm of pancreas, unspecified; C78.7 Secondary malignant neoplasm of liver and intrahepatic bile duct; N17.9 Acute kidney failure, unspecified; R18.0 Malignant ascites; R65.20 Severe sepsis without septic shock; R77.8 Other specified abnormalities of plasma proteins; R00.0 Tachycardia, unspecified; I12.9 Hypertensive chronic kidney disease with stage 1 through stage 4 chronic kidney disease, or unspecified chronic kidney disease; N18.9 Chronic kidney disease, unspecified; E86.0 Dehydration; E78.5 Hyperlipidemia, unspecified; E66.9 Obesity, unspecified; K21.9 Gastro-esophageal reflux disease without esophagitis; F41.9 Anxiety disorder, unspecified; Z20.822 Contact with and (suspected) exposure to COVID-19; Z87.891 Personal history of nicotine dependence; Z86.711 Personal history of pulmonary embolism; Z79.01 Long term (current) use of anticoagulants
CPT/HCPCS: 36415; 36592; 49083; 71046; 76775; 80047; 80053; 81001; 82040; 82945; 83605; 83615; 83690; 83735; 83880; 84100; 84157; 84443; 84484; 85025; 85027; 85610; 85730; 86140; 87040; 87070; 87075; 87086; 87205; 88108; 88305; 89051; 93005; 93971; 96361; 96366; 96367; 96375; 97161; 97165; 99285; A9270; C9113; C9803; G0378; J0692; J1642; J1940; J2997; J3370; J3475; J7120; P9047; U0003; U0005

== ENCOUNTER 2022-02-06 09:48 | Outpatient (CLI) | payer MEDICARE, SELFPAY ==
--- NOTE | ~2022-02-06 | US_ITS ---
EXAMINATION: US paracentesis abd w/image DATE: 02/06/2022 10:52 INDICATION: Ascites. TECHNIQUE: The procedure and its risks and benefits were discussed with the patient. Potential risks discussed included bleeding and infection. The skin was prepped and draped in sterile fashion. 1% lid ocaine was used for local anesthesia. Under ultrasound guidance, a 5 Fr catheter with trochar was adv anced into the ascites in the left lower quadrant. Fluid was aspirated into vacuum bottles. The rae ter was removed, and a dressing was applied. There were no immediate complications. FINDINGS: Ultrasound images demonstrate ascites and the catheter within the fluid. IMPRESSION: 1. Successful ultrasound-guided paracentesis yielding 5000 mL of cloudy yellowish fluid. Reviewed, dictated and finalized at location A. IMPRESSION: 1. Successful ultrasound-guided paracentesis yielding 5000 mL of cloudy yellow ashley fluid.
== END 2022-02-06 09:49 | disposition home or self-care (01) ==
PROVIDERS: PCP Internal Medicine; Visit Provider Internal Medicine Hematology & Oncology
DX: C25.9 Malignant neoplasm of pancreas, unspecified (principal); R18.0 Malignant ascites
CPT/HCPCS: 49083

== ENCOUNTER 2022-02-21 09:12 | Outpatient (CLI) | payer MEDICARE, SELFPAY ==
--- NOTE | ~2022-02-21 | US_ITS ---
EXAMINATION: US paracentesis abd w/image DATE: 02/21/2022 11:54 INDICATION: Ascites. TECHNIQUE: The procedure and its risks and benefits were discussed with the patient. Potential risks discussed included bleeding and infection. The skin was prepped and draped in sterile fashion. 1% lid ocaine was used for local anesthesia. Under ultrasound guidance, a 5 Fr catheter with trochar was adv anced into the ascites in the left lower quadrant. Fluid was aspirated into vacuum bottles. The rae ter was removed, and a dressing was applied. There were no immediate complications. FINDINGS: Ultrasound images demonstrate ascites and the catheter within the fluid. IMPRESSION: 1. Successful ultrasound-guided paracentesis yielding 5000 mL of cloudy light yellow fluid. Reviewed, dictated and finalized at location A.
[2022-02-21 10:33] LABS: Mean Platelet Volume 10.6 fl (7.4-10.4); Platelet Count Result 216 k/mm3 (150-375)
[2022-02-21 10:46] LABS: INR 1.2; Prothrombin Time 15.1 Seconds (11.1-14.7)
== END 2022-02-21 09:13 | disposition home or self-care (01) ==
PROVIDERS: Radiology Diagnostic Radiology; PCP Internal Medicine; Visit Provider Internal Medicine Hematology & Oncology
DX: C25.9 Malignant neoplasm of pancreas, unspecified (principal); R18.0 Malignant ascites
CPT/HCPCS: 36415; 49083; 85049; 85610

== ENCOUNTER 2022-02-27 07:26 | Outpatient (RCR) | payer MEDICARE, SELFPAY ==
[2022-02-27] VITALS (10 sets, daily range): BP systolic 112–128; BP diastolic 63–90; PULSE 106–122; RESP 16–19; TEMP 36.2–37.3; O2SAT 99–100
--- NOTE | 2022-02-27 07:41 | PC.NURSE ---
Addendum entered by Dayan Dias RN 02/27/22 07:48: Edit- patient REPORTS he took hydrocodone 10 mg -acetaminophen 325 mg today at 0700. He has premedication ordered with Tylenol 650 mg PO x 1 dose. Original Note: Patient arrived to unit. Patient's wristband and allergies verified. Patient removes he took hydrocodone 5 mg-acetaminophen 325 mg today at 0700.
[2022-02-27] MEDS: ACETAMINOPHEN 325 MG TABLET PO (08:08)
[2022-02-27] MEDS: diphenhydrAMINE HCl CAP 25 MG CAPSULE PO (08:10)
[2022-02-27] MEDS: SODIUM CHLORIDE 0.9% IV 250 ML 30 ML IV CONT (08:15)
--- NOTE | 2022-02-27 08:29 | PC.NURSE ---
Patient reports his resting heart rate is chronically elevated in the 120s-130s. He is asymptomatic. His pre-transfusion HR was 122.
--- NOTE | 2022-02-27 08:30 | PC.NURSE ---
0815 PRBC transfusion was started at 65 ml/hr. Patient supervised and educated on s/s of transfusion reaction and when to notify nurse in the presence of his niece, Juan. He verbalized understanding. He denies history of CHF.
--- NOTE | 2022-02-27 10:54 | PC.NURSE ---
Called Dr. Broderick's office for order clarification on IV Lasix as patient took oral Furosemide 20 mg and Spironlactone 25 mg po today around 0700.
--- NOTE | 2022-02-27 10:57 | PC.NURSE ---
7913 Patient up to bathroom with assist. Urinated x 1. Placed his home cream on rectal area. Appears to have external hemorrhoids.
--- NOTE | 2022-02-27 12:24 | PC.NURSE ---
Patient ate 100% of lunch tray.
[2022-02-27] MEDS: HEPARIN SODIUM LOCK FLUSH 500 UNITS/5 ML VIAL (15:03)
== END 2022-05-28 23:59 | disposition home or self-care (01) ==
LOC: ANHCPCTRAN 07:26
PROVIDERS: PCP Internal Medicine; Visit Provider Internal Medicine Hematology & Oncology
DX: D64.9 Anemia, unspecified (principal)
CPT/HCPCS: 36415; 36430; 86850; 86900; 86901; 86920; A9270; J1642; J7050; P9016

== ENCOUNTER 2022-03-10 10:57 | Outpatient (CLI) | payer MEDICARE, SELFPAY ==
--- NOTE | ~2022-03-10 | US_ITS ---
EXAMINATION: US paracentesis abd w/image DATE: 03/10/2022 12:03 INDICATION: Ascites. TECHNIQUE: The procedure and its risks and benefits were discussed with the patient. Potential risks discussed included bleeding and infection. The skin was prepped and draped in sterile fashion. 1% lid ocaine was used for local anesthesia. Under ultrasound guidance, a 5 Fr catheter with trochar was adv anced into the ascites in the left lower quadrant. Fluid was aspirated into vacuum bottles. The rae ter was removed, and a dressing was applied. There were no immediate complications. FINDINGS: Ultrasound images demonstrate ascites and the catheter within the fluid. IMPRESSION: 1. Successful ultrasound-guided paracentesis yielding 5000 mL of cloudy yellowish fluid. Reviewed, dictated and finalized at location A. IMPRESSION: 1. Successful ultrasound-guided paracentesis yielding 5000 mL of cloudy yellow ashley fluid.
== END 2022-03-10 10:58 | disposition home or self-care (01) ==
PROVIDERS: PCP Internal Medicine; Visit Provider Internal Medicine Hematology & Oncology
DX: C25.9 Malignant neoplasm of pancreas, unspecified (principal); R18.0 Malignant ascites
CPT/HCPCS: 49083

== ENCOUNTER 2022-03-26 08:52 | Outpatient (CLI) | payer MEDICARE, SELFPAY ==
--- NOTE | ~2022-03-26 | US_ITS ---
EXAMINATION: US paracentesis abd w/image DATE: 03/26/2022 10:00 INDICATION: Malignant ascites. TECHNIQUE: The procedure and its risks, benefits, and alternatives were discussed with the patient. P otential risks discussed included bleeding and infection. The skin was prepped and draped in sterile fashion. 1% lidocaine was used for local anesthesia. Under ultrasound guidance, a 5 Fr catheter with trochar was advanced into the ascites in the left lower quadrant. Fluid was aspirated. The catheter w as removed, and a dressing was applied. There were no immediate complications. FINDINGS: Ultrasound images demonstrate ascites and the catheter within the fluid. IMPRESSION: 1. Successful ultrasound-guided paracentesis yielding 5000 mL of cream-colored fluid. Reviewed, dictated and finalized at location A.
== END 2022-03-26 08:53 | disposition home or self-care (01) ==
PROVIDERS: PCP Internal Medicine; Visit Provider Internal Medicine Hematology & Oncology
DX: R18.8 Other ascites (principal)
CPT/HCPCS: 49083

== ENCOUNTER 2022-04-02 10:14 | Outpatient (CLI) | payer MEDICARE, SELFPAY ==
--- NOTE | ~2022-04-02 | US_ITS ---
EXAMINATION: US paracentesis abd w/image DATE: 04/02/2022 11:18 INDICATION: Ascites. TECHNIQUE: The procedure and its risks and benefits were discussed with the patient. Potential risks discussed included bleeding and infection. The skin was prepped and draped in sterile fashion. 1% lid ocaine was used for local anesthesia. Under ultrasound guidance, a 5 Fr catheter with trochar was adv anced into the ascites in the left lower quadrant. Fluid was aspirated into vacuum bottles. The rae ter was removed, and a dressing was applied. There were no immediate complications. FINDINGS: Ultrasound images demonstrate ascites and the catheter within the fluid. IMPRESSION: 1. Successful ultrasound-guided paracentesis yielding 5000 mL of yellow-colored fluid. Reviewed, dictated and finalized at location A. 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 Successful ultrasound-guided paracentesis yielding 5000 mL of yellow-colore d fluid.
== END 2022-04-02 10:15 | disposition home or self-care (01) ==
LOC: ANHIMG 10:17
PROVIDERS: PCP Internal Medicine; Visit Provider Internal Medicine Hematology & Oncology
DX: C25.9 Malignant neoplasm of pancreas, unspecified (principal); R18.0 Malignant ascites
CPT/HCPCS: 36415; 49083; 80047; 80053; 85025; 96372; Q5106

== ENCOUNTER 2022-04-10 07:21 | Outpatient (RCR) | payer MEDICARE, SELFPAY ==
[2022-04-10 08:20] VITALS: TEMP 36.7
[2022-04-10] MEDS: ACETAMINOPHEN 325 MG TABLET 650 MG PO (08:20)
[2022-04-10] MEDS: diphenhydrAMINE HCl CAP 25 MG CAPSULE PO (08:20)
[2022-04-10 08:23] VITALS: BP 132/82; PULSE 116; RESP 24; TEMP 36.7; O2SAT 100
[2022-04-10] MEDS: SODIUM CHLORIDE 0.9% IV 250 ML 30 ML IV CONT (08:23)
[2022-04-10 08:38] VITALS: BP 115/83; PULSE 109; RESP 22; TEMP 36.6; O2SAT 100
[2022-04-10 09:38] VITALS: BP 124/86; PULSE 107; RESP 24; TEMP 36.7; O2SAT 100
[2022-04-10 10:38] VITALS: BP 126/85; PULSE 110; RESP 23; TEMP 36.8; O2SAT 99
[2022-04-10 11:38] VITALS: BP 123/83; PULSE 110; RESP 24; TEMP 36.7; O2SAT 99
[2022-04-10] MEDS: HEPARIN SODIUM LOCK FLUSH 500 UNITS/5 ML VIAL (11:57)
== END 2022-07-09 23:59 | disposition home or self-care (01) ==
LOC: ANHCPCTRAN 07:21
PROVIDERS: PCP Internal Medicine; Visit Provider Internal Medicine Hematology & Oncology
DX: C25.9 Malignant neoplasm of pancreas, unspecified (principal); D64.9 Anemia, unspecified; R06.02 Shortness of breath; R53.83 Other fatigue
CPT/HCPCS: 36415; 36430; 36592; 80047; 80053; 85025; 86850; 86900; 86901; 86923; A9270; J1642; J7050; P9016

== ENCOUNTER 2022-04-16 09:01 | Outpatient (CLI) | payer MEDICARE, SELFPAY ==
--- NOTE | ~2022-04-16 | US_ITS ---
EXAMINATION: US paracentesis abd w/image DATE: 04/16/2022 09:59 INDICATION: Ascites. TECHNIQUE: The procedure and its risks, benefits, and alternatives were discussed with the patient. P otential risks discussed included bleeding and infection. The skin was prepped and draped in sterile fashion. 1% lidocaine was used for local anesthesia. Under ultrasound guidance, a 5 Fr catheter with trochar was advanced into the ascites in the left lower quadrant. Fluid was aspirated. The catheter w as removed, and a dressing was applied. There were no immediate complications. FINDINGS: Ultrasound images demonstrate ascites and the catheter within the fluid. IMPRESSION: 1. Successful ultrasound-guided paracentesis yielding 5000 mL of cloudy, dark yellow fluid. Reviewed, dictated and finalized at location A. GROOMER
== END 2022-04-16 09:02 | disposition home or self-care (01) ==
PROVIDERS: PCP Internal Medicine; Visit Provider Internal Medicine Hematology & Oncology
DX: C25.9 Malignant neoplasm of pancreas, unspecified (principal); R18.8 Other ascites
CPT/HCPCS: 49083; 99212; G0463

== ENCOUNTER 2022-04-25 12:30 | Outpatient (CLI) | payer MEDICARE, SELFPAY ==
--- NOTE | ~2022-04-25 | US_ITS ---
EXAMINATION: US paracentesis abd w/image DATE: 04/25/2022 14:02 INDICATION: Ascites. TECHNIQUE: The procedure and its risks, benefits, and alternatives were discussed with the patient. P otential risks discussed included bleeding and infection. The skin was prepped and draped in sterile fashion. 1% lidocaine was used for local anesthesia. Under ultrasound guidance, a 5 Fr catheter with trochar was advanced into the ascites in the right lower quadrant. Fluid was aspirated. The catheter was removed, and a dressing was applied. There were no immediate complications. FINDINGS: Ultrasound images demonstrate ascites and the catheter within the fluid. IMPRESSION: 1. Successful ultrasound-guided paracentesis yielding 5000 mL of cloudy, pink fluid. Reviewed, dictated and finalized at location A. 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
== END 2022-04-25 12:31 | disposition home or self-care (01) ==
PROVIDERS: PCP Internal Medicine; Visit Provider Internal Medicine Hematology & Oncology
DX: C25.9 Malignant neoplasm of pancreas, unspecified (principal); C79.9 Secondary malignant neoplasm of unspecified site
CPT/HCPCS: 49083

== ENCOUNTER 2022-05-07 08:55 | Outpatient (CLI) | payer MEDICARE, SELFPAY ==
--- NOTE | ~2022-05-07 | US_ITS ---
EXAMINATION: US paracentesis abd w/image DATE: 05/07/2022 10:15 INDICATION: Ascites. TECHNIQUE: The procedure and its risks, benefits, and alternatives were discussed with the patient. P otential risks discussed included bleeding and infection. The skin was prepped and draped in sterile fashion. 1% lidocaine was used for local anesthesia. Under ultrasound guidance, a 5 Fr catheter with trochar was advanced into the ascites in the left lower quadrant. Fluid was aspirated. The catheter w as removed, and a dressing was applied. There were no immediate complications. FINDINGS: Ultrasound images demonstrate ascites and the catheter within the fluid. IMPRESSION: 1. Successful ultrasound-guided paracentesis yielding 5000 mL of bharat-colored fluid. Reviewed, dictated and finalized at location A. ISSARY OFFICER
== END 2022-05-07 08:56 | disposition home or self-care (01) ==
PROVIDERS: PCP Internal Medicine; Visit Provider Internal Medicine Hematology & Oncology
DX: C25.9 Malignant neoplasm of pancreas, unspecified (principal); R18.0 Malignant ascites
CPT/HCPCS: 49083

== ENCOUNTER 2022-05-08 09:21 | Outpatient (CLI) | payer MEDICARE, SELFPAY ==
--- NOTE | ~2022-05-08 | CT_ITS ---
EXAMINATION: CT chest abdomen pelvis w con DATE: 05/08/2022 09:51 INDICATION: Metastatic pancreatic cancer TECHNIQUE: Transaxial computed tomographic images of the chest, abdomen, and pelvis were obtained aft er the administration of 100 cc of Omnipaque 350 intravenous contrast. The dose-length product (DLP) was 469.76 mGy-cm. Automated exposure control and iterative reconstruction technique were employed. COMPARISON: 12/17/2021 FINDINGS: CHEST CT: A 4 mm nodule of the right lower lobe previously measured 7 mm. A previously identified 4 mm nodule i n the right middle lobe has decreased in size now measuring approximately 2 mm. There is a small righ t pleural effusion with decrease in size and a trace persistent left pleural effusion. No pneumothora x is identified. A left subclavian Port-A-Cath ends with its tip in the distal superior vena cava. Pr eviously described pulmonary emboli have resolved. No pathologically enlarged thoracic lymph nodes ar e identified. The heart size is normal. There is calcified coronary artery atherosclerosis. There is severe thoracic spondylosis. ABDOMEN/PELVIS CT: Multiple hepatic masses are again seen, consistent with metastatic disease. All of the previously vis ualized masses have decreased in size. For instance a 1.9 x 1.0 cm subcapsular mass in liver segment VIII previously measured 3.3 x 2.9 cm. An approximately 2.8 x 2.7 cm mass in the tail of the pancreas previously measured 3.8 x 3.1 cm. There is unchanged heterogeneous enhancement of the spleen. The sp lenic vein is thrombosed. The pancreatic tail mass encases the distal splenic artery. The gallbladder and adrenal glands are normal. The kidneys are unremarkable. Periportal lymphadenopathy has decrease d. There is no free intraperitoneal gas or evidence of bowel obstruction. There is calcified atherosc lerosis of the aorta and many of the other arteries. There is a large volume of abdominal and pelvic ascites. There is moderate lumbar spondylosis. IMPRESSION: 1. Interval response to therapy as evidenced by decrease in size of a pancreatic tail mass, decrease in periportal lymphadenopathy, and decrease in size of liver and right lung metastases. 2. Large volume of ascites. 3. Resolved pulmonary emboli. Reviewed, dictated and finalized at location A. RE SCHOOL BABYSITTER IMPRESSION: 1. Interval response to therapy as evidenced by decrease in size of a pancreati c tail mass, decrease in periportal lymphadenopathy, and decrease in size of li irving and right lung metastases. 2. Large volume of ascites. 3. Resolved pulmonary emboli.
== END 2022-05-08 09:22 | disposition home or self-care (01) ==
PROVIDERS: PCP Internal Medicine; Visit Provider Internal Medicine Hematology & Oncology
DX: C79.9 Secondary malignant neoplasm of unspecified site (principal); C25.9 Malignant neoplasm of pancreas, unspecified; R18.8 Other ascites
CPT/HCPCS: 71260; 74177; Q9967

== ENCOUNTER 2022-05-14 10:56 | Outpatient (CLI) | payer MEDICARE, SELFPAY ==
--- NOTE | ~2022-05-14 | US_ITS ---
EXAMINATION: US paracentesis abd w/image DATE: 05/14/2022 12:24 INDICATION: Ascites. TECHNIQUE: The procedure and its risks and benefits were discussed with the patient. Potential risks discussed included bleeding and infection. The skin was prepped and draped in sterile fashion. 1% lid ocaine was used for local anesthesia. Under ultrasound guidance, a 5 Fr catheter with trochar was adv anced into the ascites in the left lower quadrant. Fluid was aspirated into vacuum bottles. The rae ter was removed, and a dressing was applied. There were no immediate complications. FINDINGS: Ultrasound images demonstrate ascites and the catheter within the fluid. IMPRESSION: 1. Successful ultrasound-guided paracentesis yielding 5000 mL of dark yellowish-red fluid. Reviewed, dictated and finalized at location A. NURSE IMPRESSION: 1. Successful ultrasound-guided paracentesis yielding 5000 mL of dark yellowis h-red fluid.
== END 2022-05-14 10:57 | disposition home or self-care (01) ==
PROVIDERS: PCP Internal Medicine; Visit Provider Internal Medicine Hematology & Oncology
DX: C25.9 Malignant neoplasm of pancreas, unspecified (principal); R18.0 Malignant ascites; C79.9 Secondary malignant neoplasm of unspecified site
CPT/HCPCS: 49083

== ENCOUNTER 2022-05-28 12:57 | Outpatient (CLI) | payer MEDICARE, SELFPAY ==
--- NOTE | ~2022-05-28 | US_ITS ---
EXAMINATION: US paracentesis abd w/image DATE: 05/28/2022 14:07 INDICATION: Ascites. TECHNIQUE: The procedure and its risks, benefits, and alternatives were discussed with the patient. P otential risks discussed included bleeding and infection. The skin was prepped and draped in sterile fashion. 1% lidocaine was used for local anesthesia. Under ultrasound guidance, a 5 Fr catheter with trochar was advanced into the ascites in the left lower quadrant. Fluid was aspirated. The catheter w as removed, and a dressing was applied. There were no immediate complications. FINDINGS: Ultrasound images demonstrate ascites and the catheter within the fluid. IMPRESSION: 1. Successful ultrasound-guided paracentesis yielding 5000 mL of bharat-colored fluid. Reviewed, dictated and finalized at location A. ONAL SERVICE MANAGER
== END 2022-05-28 12:58 | disposition home or self-care (01) ==
PROVIDERS: PCP Internal Medicine; Visit Provider Internal Medicine Hematology & Oncology
DX: R18.8 Other ascites (principal)
CPT/HCPCS: 49083

== ENCOUNTER 2022-06-12 10:29 | Outpatient (CLI) | payer MEDICARE, SELFPAY ==
--- NOTE | ~2022-06-12 | US_ITS ---
EXAMINATION: US paracentesis abd w/image DATE: 06/12/2022 11:55 INDICATION: Ascites. TECHNIQUE: The procedure and its risks and benefits were discussed with the patient. Potential risks discussed included bleeding and infection. The skin was prepped and draped in sterile fashion. 1% lid ocaine was used for local anesthesia. Under ultrasound guidance, a 5 Fr catheter with trochar was adv anced into the ascites in the lateral mid right abdomen. Fluid was aspirated into vacuum bottles. The catheter was removed, and a dressing was applied. There were no immediate complications. FINDINGS: Ultrasound images demonstrate ascites and the catheter within the fluid. IMPRESSION: 1. Successful ultrasound-guided paracentesis yielding 3800 mL of clear bharat-colored fluid. Reviewed, dictated and finalized at location A. ORING MACHINE OPERATOR IMPRESSION: 1. Successful ultrasound-guided paracentesis yielding 3800 mL of clear bharat-c olored fluid.
== END 2022-06-12 10:30 | disposition home or self-care (01) ==
PROVIDERS: PCP Internal Medicine; Visit Provider Internal Medicine Hematology & Oncology
DX: C25.9 Malignant neoplasm of pancreas, unspecified (principal); R18.0 Malignant ascites
CPT/HCPCS: 49083

== ENCOUNTER 2022-07-11 09:18 | Outpatient (CLI) | payer MEDICARE, SELFPAY ==
--- NOTE | ~2022-07-11 | US_ITS ---
EXAMINATION: US paracentesis abd w/image DATE: 07/11/2022 10:17 INDICATION: Ascites. TECHNIQUE: The procedure and its risks and benefits were discussed with the patient. Potential risks discussed included bleeding and infection. The skin was prepped and draped in sterile fashion. 1% lid ocaine was used for local anesthesia. Under ultrasound guidance, a 5 Fr catheter with trochar was adv anced into the ascites in the right lower quadrant. Fluid was aspirated into vacuum bottles. The cath eter was removed, and a dressing was applied. There were no immediate complications. FINDINGS: Ultrasound images demonstrate ascites and the catheter within the fluid. IMPRESSION: 1. Successful ultrasound-guided paracentesis yielding 5000 mL of bharat-colored fluid. Reviewed, dictated and finalized at location A. ING INSTRUCTOR
== END 2022-07-11 09:19 | disposition home or self-care (01) ==
PROVIDERS: PCP Internal Medicine; Visit Provider Internal Medicine Hematology & Oncology
DX: C25.9 Malignant neoplasm of pancreas, unspecified (principal); C79.9 Secondary malignant neoplasm of unspecified site; R18.0 Malignant ascites
CPT/HCPCS: 49083

== ENCOUNTER 2022-08-06 10:19 | Outpatient (CLI) | payer MEDICARE, SELFPAY ==
--- NOTE | ~2022-08-06 | US_ITS ---
EXAMINATION: US paracentesis abd w/image DATE: 08/06/2022 11:05 INDICATION: Ascites. TECHNIQUE: The procedure and its risks, benefits, and alternatives were discussed with the patient. P otential risks discussed included bleeding and infection. The skin was prepped and draped in sterile fashion. 1% lidocaine was used for local anesthesia. Under ultrasound guidance, a 5 Fr catheter with trochar was advanced into the ascites in the left lower quadrant. Fluid was aspirated. The catheter w as removed, and a dressing was applied. There were no immediate complications. FINDINGS: Ultrasound images demonstrate ascites and the catheter within the fluid. IMPRESSION: 1. Successful ultrasound-guided paracentesis yielding 5000 mL of red-bharat fluid. Reviewed, dictated and finalized at location A. IMPRESSION: 1. Successful ultrasound-guided paracentesis yielding 5000 mL of red-bharat flu id.
== END 2022-08-06 10:20 | disposition home or self-care (01) ==
PROVIDERS: PCP Internal Medicine; Visit Provider Internal Medicine Hematology & Oncology
DX: C25.9 Malignant neoplasm of pancreas, unspecified (principal); R18.0 Malignant ascites
CPT/HCPCS: 49083

== ENCOUNTER 2022-08-12 07:55 | Outpatient (CLI) | payer MEDICARE, SELFPAY ==
--- NOTE | ~2022-08-12 | CT_ITS ---
Clinical Indication: Malignancy of pancreas CT Scan of the Chest, Abdomen, and Pelvis with Contrast: Technique: Contiguous sections were acquired throughout the chest, abdomen, and pelvis after intraven ous administration of 100 cc of Omnipaque 350. Dose reduction technique was used on this scan by uti lizing automated exposure control and iterative reconstruction technique. The dose-length product (DL P) was 690.22 mGy-cm. COMPARISON: 05/08/2022 Findings: There is no evidence of any significant mediastinal, hilar or axillary lymphadenopathy. The mediastin al soft tissues and vascular structures appear normal, aside from atherosclerotic calcifications. No pericardial effusion. Very small right pleural effusion present. No left pleural effusion. There is minimal bibasilar scarring or atelectatic change. There are several tiny, stable right pulmo nary nodules, nonspecific. Liver demonstrates a nodular contour, suggestive of cirrhosis. Scattered small hypodense hepatic lesi ons are decreased in size from prior exam. Ill-defined pancreatic tail mass is essentially unchanged from prior exam. The spleen, gallbladder, adrenals and kidneys are within normal limits. There are at herosclerotic calcifications of the aorta. No lymphadenopathy. No bowel obstruction or bowel wall thickening. There is no evidence to suggest acute appendicitis. Th ere are infiltrative changes at the left upper quadrant anterior mesentery, consistent with peritonea l carcinomatosis. Urinary bladder is unremarkable. Large amount of abdominopelvic ascites present. Prostate gland and s eminal vesicles are unremarkable. Impression: Peritoneal carcinomatosis, overall similar to prior exam. Hypodense hepatic lesions are decreased in size, consistent with partial interval response to therapy of hepatic metastatic disease. Stable ill-defined pancreatic tail mass. Large amount of abdominopelvic ascites and probable cirrhotic change of the liver. Minimal right pleural effusion. Several tiny right lung pulmonary nodules, indeterminate. Small metastases are not excluded. Reviewed, dictated and finalized at location M. Impression: Peritoneal carcinomatosis, overall similar to prior exam. Hypodense hepatic lesions are decreased in size, consistent with partial interv al response to therapy of hepatic metastatic disease. Stable ill-defined pancreatic tail mass. Large amount of abdominopelvic ascites and probable cirrhotic change of the christine er. Minimal right pleural effusion. Several tiny right lung pulmonary nodules, indeterminate. Small metastases are not excluded.
== END 2022-08-12 07:56 | disposition home or self-care (01) ==
PROVIDERS: PCP Internal Medicine; Visit Provider Internal Medicine Hematology & Oncology
DX: C25.9 Malignant neoplasm of pancreas, unspecified (principal); R91.8 Other nonspecific abnormal finding of lung field
CPT/HCPCS: 71260; 74177; Q9967

== ENCOUNTER 2022-08-14 12:42 | Outpatient (CLI) | payer MEDICARE, SELFPAY ==
--- NOTE | ~2022-08-14 | US_ITS ---
EXAMINATION: US paracentesis abd w/image DATE: 08/14/2022 14:23 INDICATION: Ascites. TECHNIQUE: The procedure and its risks and benefits were discussed with the patient. Potential risks discussed included bleeding and infection. The skin was prepped and draped in sterile fashion. 1% lid ocaine was used for local anesthesia. Under ultrasound guidance, a 5 Fr catheter with trochar was adv anced into the ascites in the right lower quadrant. Fluid was aspirated into vacuum bottles. The cath eter was removed, and a dressing was applied. There were no immediate complications. FINDINGS: Ultrasound images demonstrate ascites and the catheter within the fluid. IMPRESSION: 1. Successful ultrasound-guided paracentesis yielding 5000 mL of dark reddish fluid. Reviewed, dictated and finalized at location A.
== END 2022-08-14 12:43 | disposition home or self-care (01) ==
PROVIDERS: PCP Internal Medicine; Visit Provider Internal Medicine Hematology & Oncology
DX: C25.9 Malignant neoplasm of pancreas, unspecified (principal); C79.9 Secondary malignant neoplasm of unspecified site
CPT/HCPCS: 49083

== ENCOUNTER 2022-09-02 09:55 | Outpatient (CLI) | payer MEDICARE, SELFPAY ==
--- NOTE | ~2022-09-02 | US_ITS ---
EXAMINATION: US paracentesis abd w/image DATE: 09/02/2022 10:59 INDICATION: Ascites. TECHNIQUE: The procedure and its risks, benefits, and alternatives were discussed with the patient. P otential risks discussed included bleeding and infection. The skin was prepped and draped in sterile fashion. 1% lidocaine was used for local anesthesia. Under ultrasound guidance, a 5 Fr catheter with trochar was advanced into the ascites in the left lower quadrant. Fluid was aspirated. The catheter w as removed, and a dressing was applied. There were no immediate complications. FINDINGS: Ultrasound images demonstrate ascites and the catheter within the fluid. IMPRESSION: 1. Successful ultrasound-guided paracentesis yielding 4700 mL of red-brown fluid. Reviewed, dictated and finalized at location A. IMPRESSION: 1. Successful ultrasound-guided paracentesis yielding 4700 mL of red-brown flu id.
== END 2022-09-02 09:56 | disposition home or self-care (01) ==
PROVIDERS: PCP Internal Medicine; Visit Provider Internal Medicine Hematology & Oncology
DX: C79.9 Secondary malignant neoplasm of unspecified site (principal); C25.9 Malignant neoplasm of pancreas, unspecified; R18.0 Malignant ascites
CPT/HCPCS: 49083

== ENCOUNTER 2022-09-22 10:05 | Outpatient (CLI) | payer MEDICARE, SELFPAY ==
--- NOTE | ~2022-09-22 | US_ITS ---
EXAMINATION: US paracentesis abd w/image DATE: 09/22/2022 10:56 INDICATION: Ascites. TECHNIQUE: The procedure and its risks, benefits, and alternatives were discussed with the patient. P otential risks discussed included bleeding and infection. The skin was prepped and draped in sterile fashion. 1% lidocaine was used for local anesthesia. Under ultrasound guidance, a 5 Fr catheter with trochar was advanced into the ascites in the left lower quadrant. Fluid was aspirated. The catheter w as removed, and a dressing was applied. There were no immediate complications. FINDINGS: Ultrasound images demonstrate ascites and the catheter within the fluid. IMPRESSION: 1. Successful ultrasound-guided paracentesis yielding 5000 mL of opaque, red fluid. Reviewed, dictated and finalized at location A. IMPRESSION: 1. Successful ultrasound-guided paracentesis yielding 5000 mL of opaque, red f luid.
== END 2022-09-22 10:06 | disposition home or self-care (01) ==
PROVIDERS: PCP Internal Medicine; Visit Provider Internal Medicine Hematology & Oncology
DX: C79.9 Secondary malignant neoplasm of unspecified site (principal); C25.9 Malignant neoplasm of pancreas, unspecified; R18.0 Malignant ascites
CPT/HCPCS: 49083

== ENCOUNTER 2022-10-08 09:53 | Outpatient (CLI) | payer MEDICARE, SELFPAY ==
--- NOTE | ~2022-10-08 | US_ITS ---
EXAMINATION: US paracentesis abd w/image DATE: 10/08/2022 11:38 INDICATION: Ascites. Malignant neoplasm of pancreas. TECHNIQUE: The procedure and its risks, benefits, and alternatives were discussed with the patient. P otential risks discussed included bleeding and infection. The skin was prepped and draped in sterile fashion. 1% lidocaine was used for local anesthesia. Under ultrasound guidance, a 5 Fr catheter with trochar was advanced into the ascites in the left lower quadrant. Fluid was aspirated. The catheter w as removed, and a dressing was applied. There were no immediate complications. FINDINGS: Ultrasound images demonstrate ascites and the catheter within the fluid. IMPRESSION: 1. Successful ultrasound-guided paracentesis yielding 5000 mL of brown-red, opaque fluid. Reviewed, dictated and finalized at location A. IMPRESSION: 1. Successful ultrasound-guided paracentesis yielding 5000 mL of brown-red, op aque fluid.
[2022-10-08 10:41] LABS: INR 1.4; Prothrombin Time 18.1 Seconds (11.1-14.7)
== END 2022-10-08 09:54 | disposition home or self-care (01) ==
PROVIDERS: PCP Internal Medicine; Visit Provider Internal Medicine Hematology & Oncology
DX: C25.9 Malignant neoplasm of pancreas, unspecified (principal)
CPT/HCPCS: 36415; 49083; 85610; 99212; G0463

== ENCOUNTER 2022-10-23 12:01 | Inpatient (IN) | payer MEDICARE, SELFPAY ==
[2022-10-23] VITALS (19 sets, daily range): BP systolic 94–128; BP diastolic 55–83; PULSE 110–134; RESP 18–35; TEMP 36.3–37.1; O2SAT 93–100; BMI 27.3
--- NOTE | ~2022-10-23 | XR_ITS ---
Upper GI series with small bowel follow-through. Indication: Dilated bowel, dysphasia, carcinomatosis Fluoroscopy time: No fluoroscopy time was performed Images: 12 overhead images were performed. 0 fluoroscopic spot images. Findings: Business Improvement Manager film demonstrates nonspecific bowel gas pattern. Patient was given water soluble con trast orally. The esophagus is of normal caliber and demonstrates normal peristalsis. There is no chicho dence of filling defects, constricting lesions or ulcerations. There is no evidence of a hiatal herni a. There is moderate distention of stomach and proximal small bowel, but oral contrast reaches colon by 2.5 hours post-ingestion. No definite transition point identified. No intrinsic or extrinsic mass le sions were noted. No mucosal abnormality seen. No extravasation of contrast or fistula identified. Impression: Moderate distention of stomach and proximal small bowel, without clear transition point. Contrast re aches large bowel by 2.5 hours post-ingestion. Consider low grade partial small bowel obstruction, b ut no high-grade obstruction is evident. Reviewed, dictated and finalized at location . Impression: Moderate distention of stomach and proximal small bowel, without clear transiti on point. Contrast reaches large bowel by 2.5 hours post-ingestion. Consider low grade partial small bowel obstruction, but no high-grade obstruction is chicho dent.
--- NOTE | ~2022-10-23 | XR_ITS ---
EXAMINATION: XR chest 1V portable DATE: 10/23/2022 14:22 INDICATION: Shortness of breath. TECHNIQUE: A single frontal view of the chest was obtained. COMPARISON: Chest 2 views 01/07/2022, CT abdomen and pelvis 10/23/2022 FINDINGS: The lung volumes are small. There are moderate-sized right and small left pleural effusions . There is dependent atelectasis bilaterally. No pneumothorax. The heart size is normal. There is a l eft subclavian port with tip in azygos vein. There is crimping of the catheter between the clavicle a nd first rib. There are changes of posterior fusion procedure in thoracic spine. IMPRESSION: 1. Moderate-sized right and small left pleural effusions. 2. Small lung volumes with bilateral dependent atelectasis. 3. Crimping of the port catheter between the clavicle and first rib, which increases the risk of cath eter fracture. Reviewed, dictated and finalized at location A. IMPRESSION: 1. Moderate-sized right and small left pleural effusions. 2. Small lung volumes with bilateral dependent atelectasis. 3. Crimping of the port catheter between the clavicle and first rib, which incr eases the risk of catheter fracture.
--- NOTE | ~2022-10-23 | XR_ITS ---
XR abdomen obstructive series DATE: 10/25/2022 06:18 INDICATION: Difficulty eating. Metastatic pancreatic cancer. TECHNIQUE: Portable supine and upright AP views COMPARISON: 10/23/2022 CT abdomen pelvis FINDINGS: Left-sided Port-A-Cath catheter is noted with distal tip overlying the superior vena cava. Upper thoracic pedicle screws and rods. Degenerative changes of the thoracic and lumbar spine. Bibasilar infiltrate and/atelectasis, right greater than left. Mild right and slight left pleural eff usion. Ground glass appearance of the abdomen and pelvis with minimal bowel gas, consistent with prominent a scites. No bowel obstruction is detected. IMPRESSION: Prominent ascites; no bowel obstruction is evident Bibasilar infiltrate or atelectasis and small pleural effusions, right greater than left Left Port-A-Cath Reviewed, dictated and finalized at Location A. Reviewed, dictated and finalized at location A.
--- NOTE | ~2022-10-23 | US_ITS ---
EXAMINATION: US abdomen limited DATE: 10/28/2022 19:25 INDICATION: Ascites evaluation TECHNIQUE: Multiple grayscale and Doppler ultrasound images of the abdomen were obtained. COMPARISON: 10/26/2022 FINDINGS: There is a moderate volume of loculated ascites in all four quadrants of the abdomen. IMPRESSION: 1. Moderate volume of loculated ascites in all four quadrants. Reviewed, dictated and finalized at location F.
--- NOTE | ~2022-10-23 | US_ITS ---
EXAMINATION: US renal BI DATE: 10/24/2022 09:12 INDICATION: Acute kidney injury. TECHNIQUE: Multiple ultrasound grayscale images of the kidneys were obtained. COMPARISON: CT abdomen and pelvis 10/23/2022 FINDINGS: The right kidney measures 9.9 x 4.8 x 4.8 cm. The left kidney measures 10.9 x 5.2 x 4.9 cm. The kidne ys demonstrate normal parenchymal echogenicity. There is no hydronephrosis. The bladder is decompress ed. Ascites with septations is again seen. IMPRESSION: 1. Normal kidney sizes. No hydronephrosis. 2. Ascites with septations again seen. Reviewed, dictated and finalized at location A.
--- NOTE | ~2022-10-23 | US_ITS ---
EXAMINATION: US paracentesis abd w/image DATE: 10/23/2022 17:03 INDICATION: Ascites. TECHNIQUE: The procedure and its risks, benefits, and alternatives were discussed with the patient. P otential risks discussed included bleeding and infection. The skin was prepped and draped in sterile fashion. 1% lidocaine was used for local anesthesia. Under ultrasound guidance, a 5 Fr catheter with trochar was advanced into the ascites in the left lower quadrant. Fluid was aspirated. The catheter w as removed, and a dressing was applied. There were no immediate complications. FINDINGS: Ultrasound images demonstrate ascites and the catheter within the fluid. IMPRESSION: 1. Successful ultrasound-guided paracentesis yielding 5000 mL of opaque, red fluid. Reviewed, dictated and finalized at location A. IMPRESSION: 1. Successful ultrasound-guided paracentesis yielding 5000 mL of opaque, red f luid.
--- NOTE | ~2022-10-23 | CT_ITS ---
EXAMINATION: CT abdomen pelvis wo con DATE: 10/23/2022 14:08 INDICATION: Abdominal distention. Weakness. TECHNIQUE: Computed tomography (CT) of the abdomen and pelvis was performed without intravenous contr ast. Automated exposure control and iterative reconstruction technique were employed. The dose-length product was 1079.59 mGy-cm. COMPARISON: CT abdomen and pelvis 08/12/2022 FINDINGS: The visualized portions of the lung bases demonstrate mild atelectasis. There are moderate- sized right and small left pleural effusions. The heart size is normal. There are coronary artery essie cifications. No pericardial effusion. There are least 6 masses in the liver measuring up to 2.5 cm, w orsened from 08/12/22. The gallbladder, spleen, pancreas, adrenal glands, and kidneys are normal. Ther e is a large volume of ascites with nodular peritoneal thickening. The appendix is normal. There is d ilated proximal small bowel. There is calcified atherosclerosis of the aorta and many of the other ar teries. There are no pathologically enlarged lymph nodes. There is mild chronic anterior wedging of m ultiple vertebral bodies. Partially visualized are changes of posterior fusion procedure in thoracic spine. There is thoracolumbar dextroscoliosis. There is severe lumbar spondylosis. IMPRESSION: 1. Moderate-sized right pleural effusion and small left effusion, worsened from 08/12/2022. 2. Peritoneal carcinomatosis and worsened liver masses, consistent metastatic disease. 3. Large volume of ascites. 4. Dilated proximal small bowel, consistent with adynamic ileus versus small bowel obstruction. Reviewed, dictated and finalized at location A. IMPRESSION: 1. Moderate-sized right pleural effusion and small left effusion, worsened from 08/12/2022. 2. Peritoneal carcinomatosis and worsened liver masses, consistent metastatic d isease. 3. Large volume of ascites. 4. Dilated proximal small bowel, consistent with adynamic ileus versus small ekta wel obstruction.
--- NOTE | ~2022-10-23 | US_ITS ---
US paracentesis abd w/image DATE: 10/26/2022 13:19 INDICATION: Therapeutic paracentesis; pancreatic cancer TECHNIQUE: The purpose of the procedure, technique and potential locations were discussed with the paty bailey. The patient indicated understanding and gave consent. An appropriate site for percutaneous access was identified in the lateral right mid to lower abdomen. The skin was prepared with sterile Betadine solution. 1% lidocaine local anesthetic was administered to the skin and underlying subcutaneous tissues. A catheter with trocar was introduced into the sho toneal cavity, yielding bloody fluid at the hub. The catheter was advanced to the trocar removed. 3.65 L of cloudy bharat fluid was drained uneventfully. The catheter was then withdrawn. IMPRESSION: 3.65 L of cloudy bharat-colored ascites drained the ultrasound-guided paracentesis Reviewed, dictated and finalized at Location A. Reviewed, dictated and finalized at location A. IMPRESSION: 3.65 L of cloudy bharat-colored ascites drained the ultrasound-guide d paracentesis
--- NOTE | 2022-10-23 12:19 | ECG_ITS ---
Measurements Intervals [place] Rate: 130 P: 31 IA: 128 QRS: 76 QRSD: 86 T: 42 QT: 299 QTc: 441 Interpretive Statements SINUS TACHYCARDIA ABNORMAL RHYTHM ECG COMPARED TO ECG 01/07/2022 12:12:03 NO SIGNIFICANT CHANGES Electronically Signed On 10-23-2022 15:28:51 CDT by Fabio Foote M.D.
[2022-10-23] MEDS: ONDANSETRON INJ 4 MG/2 ML VIAL 8 MG IV PUSH (12:25)
[2022-10-23 12:48] LABS: Basophils Percent Auto 0.1 % (0.2-1.2); Hematocrit 23.1 % (42.0-52.0); Immature Granulocyte Percent A 0.7 % (0-0.5); Lymphocytes Absolute Auto 0.39 K/mm3 (0.9-3.2); Lymphocytes Percent Auto 2.9 % (18.3-44.2); Mean Corpuscular HGB Conc 29.9 g/dl (32-36); Mean Corpuscular Hemoglobin 30.7 pg (26-34); Mean Corpuscular Volume 102.7 fl (80-100); Mean Platelet Volume 10.1 fl (7.4-10.4); Monocytes Percent Auto 7.3 % (2.6-8.5); Neutrophils Absolute Auto 11.9 K/mm3 (1.3-6.7); Nucleated Red Blood Cells Absolute Auto 0.1 K/mm3 (0.0-0.012); Nucleated Red Blood Cells Perc 0.5 % (0.0-0.2); Platelet Count Result 587 k/mm3 (150-375); Red Blood Count 2.25 M/mm3 (4.6-6.20); Red Cell Distribution Width 19.9 % (11.5-14.5); White Blood Count 13.4 K/mm3 (4.5-10.0)
[2022-10-23 12:59] LABS: Alanine Aminotransferase 25 U/L (6-50); Albumin Level 3.1 g/dL (3.5-5.1); Alkaline Phosphatase 182 U/L (38-126); Anion Gap 9 mmol/L (8-16); Aspartate Amino Transferase 41 U/L (17-59); Bilirubin,Total 0.4 mg/dL (0.2-1.3); Blood Urea Nitrogen 45 mg/dL (9-20); Calcium 8.7 mg/dL (8.4-10.2); Carbon Dioxide 23 mmol/L (22-30); Chloride 94 mmol/L (98-107); Estimated CRCL calculation 31 ml/min; Estimated Glomerular Filt Rate 35; Glucose 117 mg/dL (65-110); Lipase 29 U/L (23-300); Potassium 5.1 mmol/L (3.4-5.0); Sodium 126 mmol/L (137-145)
[2022-10-23 13:20] LABS: Anisocytosis 2+ (NORMAL); Platelet Estimate Increased (Adequate); Schistocytes None Seen (NORMAL)
[2022-10-23 13:21] LABS: Hypochromasia 1+ (NORMAL)
[2022-10-23 13:34] LABS: Hemoglobin 6.9 g/dL (14.0-18.0)
--- NOTE | 2022-10-23 13:36 | ED.NAVMDI ---
HPI - Nausea/Vomiting/Diarrhea General Chief complaint: Nausea/Vomiting/Diarrhea Stated complaint: weakness, N/V Time Seen by Provider: 10/23/22 12:37 History of Present Illness HPI Narrative: Patient is a 72-year-old male with a history of metastatic pancreatic cancer presenting with generalized weakness and nausea. Patient states that for the last several days he has been feeling generally weak. States that he was having multiple episodes of vomiting yesterday but he has not yet vomited today. States that he does feel a bit nauseous. States that he was supposed to have a paracentesis today as he gets them every 2 weeks but he was unable to make his appointment because he felt so weak. He denies any focal numbness or weakness. He denies recent fevers or chills. Denies chest pain or cough. States that he does feel somewhat short of breath due to his ascites. States that he was having diarrhea until he started taking Imodium several days ago. Related Data Home Medications Medication Instructions Recorded Confirmed allopurinol 300 mg tablet 300 mg PO DAILY 10/15/21 10/23/22 coQ10 (ubiquinol) 200 mg capsule 200 mg PO DAILY 10/15/21 10/23/22 lorazepam 0.5 mg tablet 0.5 mg PO TID PRN Anxiety 10/15/21 10/23/22 multivitamin with minerals-folic 1 tablet PO DAILY 10/15/21 10/23/22 acid 0.4 mg tablet omeprazole 20 mg capsule,delayed 20 mg PO DAILY 10/25/21 10/23/22 release megestrol 400 mg/10 mL (40 mg/mL) 200 mg PO DAILY 01/07/22 10/23/22 oral suspension hydrocodone 10 mg-acetaminophen 1 tablet PO Q6H PRN Pain 01/21/22 10/23/22 325 mg tablet lidocaine-prilocaine 2.5 %-2.5 % See Rx Instructions .Route 03/05/22 10/23/22 topical cream .COMPLEX PRN port prior to therapy potassium chloride 20 mEq 20 meq PO DAILY 03/19/22 10/23/22 tablet,extended release cyanocobalamin (vitamin B-12) 1,000 mcg PO DAILY 04/28/22 10/23/22 1,000 mcg tablet (Vitamin B-12) ferrous sulfate 325 mg (65 mg 325 mg PO DAILY 04/28/22 10/23/22 iron) tablet (iron) ondansetron 8 mg oral soluble film 8 mg PO Q12H PRN nausea 04/28/22 10/23/22 gabapentin 300 mg tablet 300 mg PO BID 07/24/22 10/23/22 furosemide 20 mg tablet 40 mg PO 1700 10/23/22 10/23/22 furosemide 20 mg tablet 60 mg PO DAILY 10/23/22 10/23/22 Allergies Allergy/AdvReac Type Severity Reaction Status Date / Time amoxicillin Allergy Severe ITCHING, Verified 10/15/22 10:59 DIFFICULTY SWALLOWING adhesive AdvReac Intermediate REDNESS Verified 10/15/22 10:59 bacitracin AdvReac Unknown REDNESS AT Verified 10/15/22 10:59 THE SITE neomycin AdvReac Unknown REDNESS AT Verified 10/15/22 10:59 THE SITE polymyxin B AdvReac Unknown REDNESS AT Verified 10/15/22 10:59 THE SITE Review of Systems Review of Systems: All systems reviewed & are unremarkable except as noted in HPI and below PMFSH Past Medical History Medical History Acute saddle pulmonary embolus Anemia Anxiety Chronic GERD Colon cancer screening DDD (degenerative disc disease) Epigastric pain Gout HTN (hypertension) Hyperlipidemia Liver mass Obesity Obesity (BMI 30-39.9) Pancreatic cancer With Mets to the liver Pancreatic mass Port-A-Cath in place Prevention of chemotherapy-induced neutropenia Pulmonary emboli Surgical History Surgical History History of back surgery fusion S/P tonsillectomy Family History Family History Mother CHF (congestive heart failure), NYHA class I Father ESRD (end stage renal disease) Social History Social History Social History: He lives alone. He is . He would like his daughter to be poa. He is retired [employer]. He drinks 1-2 alcoholic beverages a day. He has one child, his daughter. code status full code Smoking packs
[2022-10-23 14:16] LABS: INR 1.7; Prothrombin Time 21.1 Seconds (11.1-14.7)
[2022-10-23 14:24] LABS: Troponin I < 0.012 ng/mL (0.000-0.034)
[2022-10-23 14:41] LABS: Lactic Acid Reflex 1.3 mmol/L (0.7-2.0)
[2022-10-23 14:49] LABS: Appearance Urine Clear (Clear); Bilirubin Urine Negative (Negative); Blood Urine Negative (Negative); Color Urine Yellow (Yellow); Glucose Urine UA Negative (Negative); Ketones Urine Negative (Negative); Leukocyte Esterase Ur Negative LEU/UL (Negative); Nitrate Urine Negative (Negative); Protein Urine Negative (Negative); Specific Grav Ur 1.018 (1.001-1.035)
[2022-10-23 14:53] LABS: Add Urine Microscopic? NO
[2022-10-23] MEDS: fentaNYL CITRATE INJ (*CRX) 100 MCG/2 ML VIAL 75 MCG IV PUSH (15:22)
[2022-10-23 15:45] LABS: Troponin I < 0.012 ng/mL (0.000-0.034)
--- NOTE | 2022-10-23 17:08 | ADMGEN ---
This patient, Joshua Gray, was admitted to Medical Room 252-01. Patient/family oriented to hospital policies and general routines including ID bracelet, bed and alarms, visiting hours, pain management, procedures, bathroom and other care routines, personal items, smoking policy, room service/diet, and visiting hours. Information on how to activate the Rapid Response Team has been discussed. Patient/Family are encouraged to report perceived risks to care and to ask questions if they do not understand what they are told or what they should do.
--- NOTE | 2022-10-23 18:56 | PM.IMHP ---
H&P: HPI History of Present Illness Date/Time: 10/23/22 18:56 Chief Complaint: Nausea vomiting diarrhea Narrative: this is a 72-year-old male patient with a history of metastatic pancreatic cancer presenting with generalized weakness and nausea. The patient has been feeling very weak over the past several days. He has had multiple episodes of vomiting yesterday but none today. He does still slightly feel nauseated. He stated that he was supposed to have a paracentesis today is he gets them every 2 weeks. However he was not able to make his appointment. He denies any fever chills. The patient was having diarrhea until he started taking Imodium several days ago. His white count was noted to be 13.4. H&H is 6.9 and 23.1. Potassium 5.1. BUN is 45 creatinine 1.9. Blood sugar 117. Alkaline phosphatase 182. Troponin negative. Albumin 3.1. Urine was negative. The patient had a paracentesis. The patient had a successful ultrasound-guided paracentesis yielding 5000 mL opaque red fluid. Chest x-ray was read as. Moderate-sized right and small left pleural effusions. 2. Small lung volumes with bilateral dependent atelectasis. 3. Crimping of the port catheter between the clavicle and first rib, which increases the risk of catheter fracture. prior to his paracentesis patient had abdominal pelvis CT which was read as a following1. Moderate-sized right pleural effusion and small left effusion, worsened from 08/12/2022. 2. Peritoneal carcinomatosis and worsened liver masses, consistent metastatic disease. 3. Large volume of ascites. 4. Dilated proximal small bowel, consistent with adynamic ileus versus small bowel obstruction. it looks like the patient had a paracentesis on 10/08/2022 that yielded 5000 mL of brown red opaque fluid. The patient was given Zofran, fentanyl, Rocephin and normal saline The patient also received a blood transfusion tonight. Surgery was consulted for possible small-bowel obstruction. The patient is being admitted to observation status on the date of service of 10/23/2022. Review of Systems Review of Systems: All systems reviewed & are unremarkable except as noted in HPI and below Constitutional: Constitutional: Reports as per HPI and Reports no additional constitutional complaints Eyes: Eyes: Reports as per HPI and Reports no additional eye complaints ENT: Reports system reviewed and no additional complaints, except as documented and Reports Normal hearing present Cardiovascular: Cardiovascular: Reports no additional cardiovascular complaints Respiratory: Respiratory: Reports no additional respiratory complaints and Reports no additional respiratory complaints Gastrointestinal: Gastrointestinal: Reports as per HPI and Reports no additional gastrointestinal complaints Musculoskeletal: Musculoskeletal: Reports no additional musculoskeletal complaints Integumentary/Breasts: Skin/Breast: Reports system reviewed and no additional complaints, except as docu and Reports as per HPI Neurologic: Reports system reviewed and no additional complaints, except as documented, Reports as per HPI and Reports Normal hearing present Psychiatric: Psychiatric: Reports no additional psychiatric complaints and Reports as per HPI Endocrine: Endocrine: Reports no additional endocrine complaints Hematologic/Lymphatic: Hematologic/Lymphatic: Reports no additional hematologic/lymphatic complaints Allergic/Immunologic: Allergic/Immunologic: Reports no additional allergic/immunologic complaints FORMERLY [facility], [facility] Past Medical History Medical History Acute saddle pulmonary embolus Anemia Anxiety Chronic GERD Colon cancer screening DDD (degenerative disc disease) Epigastric pain Gout HTN (hypertension) Hyperlipidemia Liver mass Obesity Obesity (BMI 30-39.9) Pancreatic cancer With Mets to the liver Pancreatic mass Port-A-Cath in place Prevention of chemotherapy-induced neutropenia Pulmon
[2022-10-23 19:06] LABS: Appearance Peritoneal Fluid Bloody (Clear); Color Peritoneal Fluid Red (Colorless); Nucleated Cells Peritoneal Flu 880 /uL (0-500); Source Peritoneal Fluid Peritoneal Fluid
[2022-10-23 19:07] LABS: Lymphocytes Peritoneal Fluid 10 %; Macrophages Peritoneal Fluid 39 %; Neutrophils Peritoneal Fluid 51 % (0-25)
[2022-10-23] MEDS: SODIUM CHLORIDE 0.9% IV 250 ML 30 ML IV CONT (22:41)
[2022-10-23] MEDS: fentaNYL CITRATE INJ (*CRX) 100 MCG/2 ML VIAL 25 MCG IV PUSH (23:02)
[2022-10-24] VITALS (13 sets, daily range): BP systolic 113–127; BP diastolic 61–69; PULSE 112–121; RESP 16–22; TEMP 36.4–37.7; O2SAT 95–98
[2022-10-24 02:55] LABS: Basophils Percent Auto 0.1 % (0.2-1.2); Hematocrit 26.6 % (42.0-52.0); Hemoglobin 8.2 g/dL (14.0-18.0); Immature Granulocyte Absolute 0.11 K/mm3 (0.00-0.031); Lymphocytes Absolute Auto 0.39 K/mm3 (0.9-3.2); Lymphocytes Percent Auto 3.5 % (18.3-44.2); Mean Corpuscular HGB Conc 30.8 g/dl (32-36); Mean Corpuscular Hemoglobin 30.8 pg (26-34); Mean Platelet Volume 9.4 fl (7.4-10.4); Monocytes Absolute Auto 1.2 K/mm3 (0.1-0.6); Monocytes Percent Auto 10.5 % (2.6-8.5); Neutrophils Absolute Auto 9.6 K/mm3 (1.3-6.7); Neutrophils Percent Auto 84.9 % (45.5-73.1); Nucleated Red Blood Cells Absolute Auto 0.1 K/mm3 (0.0-0.012); Nucleated Red Blood Cells Perc 0.7 % (0.0-0.2); Platelet Count Result 440 k/mm3 (150-375); Red Blood Count 2.66 M/mm3 (4.6-6.20); White Blood Count 11.3 K/mm3 (4.5-10.0)
[2022-10-24 03:05] LABS: Alanine Aminotransferase 21 U/L (6-50); Albumin Level 2.7 g/dL (3.5-5.1); Alkaline Phosphatase 151 U/L (38-126); Anion Gap 6 mmol/L (8-16); Aspartate Amino Transferase 36 U/L (17-59); Bilirubin,Total 0.5 mg/dL (0.2-1.3); Blood Urea Nitrogen 41 mg/dL (9-20); Calcium 8.2 mg/dL (8.4-10.2); Carbon Dioxide 24 mmol/L (22-30); Chloride 96 mmol/L (98-107); Estimated CRCL calculation 31 ml/min; Estimated Glomerular Filt Rate 35; Glucose 112 mg/dL (65-110); Lipase 24 U/L (23-300); Magnesium 2.2 mg/dL (1.6-2.3); Potassium 4.7 mmol/L (3.4-5.0); Sodium 126 mmol/L (137-145)
[2022-10-24 03:52] LABS: Thyroid Stimulating Hormone Reflex 0.677 uIU/mL (0.465-4.68)
[2022-10-24] MEDS: HYDROcodone/acetaminophen (*CRX) 10-325 MG TABLET 1 TAB PO ×3 (05:02→17:13)
[2022-10-24 08:42] LABS: Hematocrit 27.2 % (42.0-52.0); Hemoglobin 8.3 g/dL (14.0-18.0)
[2022-10-24] MEDS: POTASSIUM CHLORIDE 20 MEQ TABLET.ER PO (09:33)
[2022-10-24] MEDS: GABAPENTIN 300 MG CAPSULE PO ×2 (09:33→17:13)
[2022-10-24] MEDS: PANTOPRAZOLE 40 MG TABLET PO (09:34)
[2022-10-24] MEDS: CYANOCOBALAMIN 1,000 MCG TABLET 1000 MCG PO (09:34)
[2022-10-24] MEDS: FERROUS SULFATE 324 MG TABLET PO (09:34)
[2022-10-24] MEDS: MAGNESIUM OXIDE 400 MG TABLET PO (09:34)
[2022-10-24] MEDS: THERAPEUTIC MULTIVITAMINS/MINERALS TAB (*BKC) 1 TABLET PO (09:34)
[2022-10-24] MEDS: allopurinoL 300 MG TABLET PO (09:34)
[2022-10-24] MEDS: MEGESTROL ACETATE (*CHEMO) ORAL SUSP 40 MG/ML SYR 200 MG PO (09:37)
--- NOTE | 2022-10-24 10:30 | PM.IMPN ---
Progress Note: A&P Assessment and Plan (1) Anemia associated with chemotherapy: Code(s): D64.81 - Anemia due to antineoplastic chemotherapy; T45.1X5A - Adverse effect of antineoplastic and immunosuppressive drugs, initial encounter Status: Acute Assessment and Plan: H&H was 6.9 and 23.1 at admission On unit of PRBC given 10/23/22 Current H/H is 8.2/26.6 Appears that he is chronically iron deficient Give 500mg Iron infusion once Hold Eliquis for now Trend H/H Could be chronic iron deficient or of chronic disease anemia Transfuse as indicated Oncology consulted (2) Acute on chronic renal failure: Code(s): N17.9 - Acute kidney failure, unspecified; N18.9 - Chronic kidney disease, unspecified Status: Acute Assessment and Plan: Creatinine is noted to be elevated at 1.90 Currently 1.90 Baseline is 1.10-1.40 hold lasix for now Continue to trend labs adjust therapy as indicated (3) HTN (hypertension): Qualifiers: Hypertension type: primary hypertension Qualified Code(s): I10 - Essential (primary) hypertension Code(s): I10 - Essential (primary) hypertension Status: Acute Assessment and Plan: Current BP is 127/69 Lasix on hold will restart spironolactone Continue to trend BP adjust as indicated (4) Chronic GERD: Code(s): K21.9 - Gastro-esophageal reflux disease without esophagitis Status: Acute Assessment and Plan: Continue with omeprazole (5) Acute hyponatremia: Code(s): E87.1 - Hypo-osmolality and hyponatremia Status: Acute Assessment and Plan: sodium is also low at 126 Was just 131 on 10/15/22 Could be related to fluid overload with ascites findings Continue to trend Consult nephrology with renal failure and hyponatremia (6) Abdominal ascites: Qualifiers: Ascites type: malignant Qualified Code(s): R18.0 - Malignant ascites Code(s): R18.8 - Other ascites Status: Acute Assessment and Plan: Secondary to metastatic peritoneal cancer Continue with therapeutic paracentesis Last paracentesis was 10/23/22 with 5000ml off Restart spironolactone (7) Peritoneal carcinomatosis: Code(s): C78.6 - Secondary malignant neoplasm of retroperitoneum and peritoneum Status: Chronic Assessment and Plan: 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 Multiple liver masses noted and are worse on this CT Currently in treatment Therapeutic paracentesis Q2WK last paracentesis drained off 5000ml Oncology consulted Plan On eliquis for PE that is noted to be resolved on 05/08/22 hold eliquis with notable anemia Time Spent With Patient Time: 58 minutes Time with patient: Greater than 35 minutes Subjective Date/time seen: 10/24/22 1030 Interval history: 10/24/22 1030 Patient is lying in bed. Patient is uncomfortable as he has been vomiting all day. He did state that chest pain, shortness a breath are doing well. He did state that his side is hurting. Daughter and sister both in the room as well. Patient has missed a few of his infusions due to ascites or his hemoglobin. Currently he seems okay he just uncomfortable from being nauseous. 10/23/22? 18:56 ?this is a 72-year-old male patient with a history of metastatic pancreatic cancer presenting with generalized weakness and nausea.? The patient has been feeling very weak over the past several days.? He has had multiple episodes of vomiting yesterday but none today.? He does still slightly feel nauseated.? He stated that he was supposed to have a paracentesis today is he gets them every 2 weeks.? However he was not able to make his appointment.? He denies any fever chills.? The patient was having diarrhea until he started taking Imodium several days ago.? His white coun
--- NOTE | 2022-10-24 10:30 | P.PNIM_ITS ---
Progress Note: A&P Assessment and Plan (1) Anemia associated with chemotherapy: Code(s): D64.81 - Anemia due to antineoplastic chemotherapy; T45.1X5A - Adverse effect of antineoplastic and immunosuppressive drugs, initial encounter Status: Acute Assessment and Plan: * H&H was 6.9 and 23.1 at admission * On unit of PRBC given 10/23/22 * Current H/H is 8.2/26.6 * Appears that he is chronically iron deficient * Give 500mg Iron infusion once * Hold Eliquis for now * Trend H/H * Could be chronic iron deficient or of chronic disease anemia * Transfuse as indicated * Oncology consulted (2) Acute on chronic renal failure: Code(s): N17.9 - Acute kidney failure, unspecified; N18.9 - Chronic kidney disease, unspecified Status: Acute Assessment and Plan: * Creatinine is noted to be elevated at 1.90 * Currently 1.90 * Baseline is 1.10-1.40 * hold lasix for now * Continue to trend labs * adjust therapy as indicated (3) HTN (hypertension): Qualifiers: Hypertension type: primary hypertension Qualified Code(s): I10 - Essential (primary) hypertension Code(s): I10 - Essential (primary) hypertension Status: Acute Assessment and Plan: * Current BP is 127/69 * Lasix on hold will restart spironolactone * Continue to trend BP * adjust as indicated (4) Chronic GERD: Code(s): K21.9 - Gastro-esophageal reflux disease without esophagitis Status: Acute Assessment and Plan: * Continue with omeprazole (5) Acute hyponatremia: Code(s): E87.1 - Hypo-osmolality and hyponatremia Status: Acute Assessment and Plan: * sodium is also low at 126 * Was just 131 on 10/15/22 * Could be related to fluid overload with ascites findings * Continue to trend * Consult nephrology with renal failure and hyponatremia (6) Abdominal ascites: Qualifiers: Ascites type: malignant Qualified Code(s): R18.0 - Malignant ascites Code(s): R18.8 - Other ascites Status: Acute Assessment and Plan: * Secondary to metastatic peritoneal cancer * Continue with therapeutic paracentesis * Last paracentesis was 10/23/22 with 5000ml off * Restart spironolactone (7) Peritoneal carcinomatosis: Code(s): C78.6 - Secondary malignant neoplasm of retroperitoneum and peritoneum Status: Chronic Assessment and Plan: * 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 * Multiple liver masses noted and are worse on this CT * Currently in treatment * Therapeutic paracentesis Q2WK * last paracentesis drained off 5000ml * Oncology consulted Plan On eliquis for PE that is noted to be resolved on 05/08/22 hold eliquis with notable anemia Time Spent With Patient Time: 58 minutes Time with patient: Greater than 35 minutes Subjective Date/time seen: 10/24/22 1030 Interval history: 10/24/22 1030 Patient is lying in bed. Patient is uncomfortable as he has been vomiting all day. He did state that chest pain, shortness a breath are doing well. He did state that his side is hurting. Daughter and sister both in the room as well. Patient has missed a few of his infusions due to ascites or his hemoglobin. Currently he seems okay he
[2022-10-24] MEDS: ONDANSETRON INJ 4 MG/2 ML VIAL IV PUSH (10:56)
--- NOTE | 2022-10-24 13:22 | PM.CNGS ---
Assessment and Plan Assessment and plan (1) Abdominal ascites: Qualifiers: Ascites type: malignant Qualified Code(s): R18.0 - Malignant ascites Code(s): R18.8 - Other ascites Status: Acute Assessment and Plan: Much improved after paracentesis with ultrasound guidance yesterday. This removed 5 L of ascites. Patient is much more comfortable and vomiting has stopped (2) Vomiting: Qualifiers: Nausea presence: with nausea Vomiting type: unspecified Qualified Code(s): R11.2 - Nausea with vomiting, unspecified Code(s): R11.10 - Vomiting, unspecified Status: Acute Assessment and Plan: Multiple episodes before coming to the hospital. No more emesis after his paracentesis but he still is having trouble eating with liquids seeming to stick in his lower neck area (3) Abnormal CT of the abdomen: Code(s): R93.5 - Abnormal findings on diagnostic imaging of other abdominal regions, including retroperitoneum Status: Acute Assessment and Plan: CT showed some dilated proximal small bowel. I think this was due to his carcinomatosis and severe ascites. Even if patient does have small-bowel obstruction, he is not a candidate for surgery. He is considering hospice. (4) Pancreatic cancer: Qualifiers: Pancreatic malignancy location: tail of pancreas Qualified Code(s): C25.2 - Malignant neoplasm of tail of pancreas Code(s): C25.9 - Malignant neoplasm of pancreas, unspecified Status: Chronic Assessment and Plan: Diagnosed a year ago. Metastases noted at the time of diagnosis. Eating problems may be due to carcinomatosis from metastatic pancreatic cancer (5) Pulmonary emboli: Qualifiers: Acute cor pulmonale presence: without acute cor pulmonale Chronicity: acute Pulmonary embolism type: saddle Qualified Code(s): I26.92 - Saddle embolus of pulmonary artery without acute cor pulmonale Code(s): I26.99 - Other pulmonary embolism without acute cor pulmonale Status: Chronic Assessment and Plan: Diagnosed November 27, 2021. Was predominantly right-sided saddle pulmonary embolism. Patient remains on Eliquis. (6) Peritoneal carcinomatosis: Code(s): C78.6 - Secondary malignant neoplasm of retroperitoneum and peritoneum Status: Chronic Assessment and Plan: Likely the reason for his malignant ascites and multiple paracentesis. History of Present Illness Consult details Consult date: 10/24/22 Reason for consult: other (Vomiting, weakness) Requesting physician: Rosaline Moctezuma MD Narrative: Patient is a 72-year-old man who unfortunately was diagnosed last November with metastatic pancreatic cancer. Follow-up CT scans have shown extension of his liver metastases and carcinomatosis. He had a Port-A-Cath placed last November and was being seen by Oncology. He has developed malignant ascites and has had at least 15 paracentesis procedures since his diagnosis 11 months ago. So far this year he has had paracentesis with ultrasound guidance for drainage of his ascites about monthly. He came to the emergency room on 10/23/2022 with complaints of multiple episodes of vomiting and weakness. He was scheduled to have another paracentesis but was too weak to make it to his appointment. He went to the emergency room instead. In the ER, he was noted to be markedly distended. CT scan was done. This showed extensive ascites and carcinomatosis with worsened hepatic metastases. Also noted was proximal small-bowel dilatation without a transition point consistent with ileus versus early partial small-bowel obstruction. I was asked to see the patient in consultation because of the abnormal CT scan. Patient went on to have paracentesis on the day of admission, 10/23/2022, 5000 cc of brown red opaque fluid was drained. Patient has had tachycardia since admitted but no fever. He has had no further vomiting. He did have a bowel move
[2022-10-24 15:13] LABS: Hematocrit 28.2 % (42.0-52.0); Hemoglobin 8.8 g/dL (14.0-18.0)
--- NOTE | 2022-10-24 16:30 | PM.CNNEP ---
Assessment and Plan Assessment and plan (1) CARMEN (acute kidney injury): Code(s): N17.9 - Acute kidney failure, unspecified Status: Acute Assessment and Plan: multifactorial etiology: prerenal factors (from GI symptoms) liver physiology (decreased effective circulating volume leading to chronic prerenal azotemia worsened by need of diuretic therapy) diuretic use renal ultrasound noted check urine electrolytes follow repeat labs and UOP (2) Stage 3a chronic kidney disease: Code(s): N18.31 - Chronic kidney disease, stage 3a Status: Chronic Assessment and Plan: baseline creatinine runs around 1.1 - 1.4mg/dl probably from necessity of diuretic use, gout, HTN, and age (3) Hyponatremia: Code(s): E87.1 - Hypo-osmolality and hyponatremia Status: Acute Assessment and Plan: acute on chronic usually runs around 128 - 136mmol/L suspect related to CARMEN and progression of underlying malignancy risk factors for low sodium: pancreatic cancer (with clear progression of disease) pain narcotic use diuretic use PPI use CARMEN/ARF ascites treatment for this will be challenging: salt tabs alone may lead to more if not worsen ascites accumulation diuretics to help with fluid removal could worsen sodium as well as creatinine salt tabs + diuretics may work but unclear if renal function would tolerated perhaps IV albumin chased by IV diuretics may help (not a good long term acute care registered nurse solution) not sure how well fluid restriction would work since he is already has poor oral intake at baseline agree with more frequent paracenteses for now follow trend of sodium (4) Abdominal ascites: Qualifiers: Ascites type: malignant Qualified Code(s): R18.0 - Malignant ascites Code(s): R18.8 - Other ascites Status: Acute Assessment and Plan: as noted by imaging to date s/p paracentesis with 5L removed suspect may require another paracentesis soon -- abdominal distension noted today related to liver mets from #5 (5) Pancreatic cancer: Qualifiers: Pancreatic malignancy location: tail of pancreas Qualified Code(s): C25.2 - Malignant neoplasm of tail of pancreas Code(s): C25.9 - Malignant neoplasm of pancreas, unspecified Status: Chronic Assessment and Plan: metastatic now complicated by peritoneal carcinomatosis?and worsening liver masses follows with Dr. Broderick Case discussed with Dr. Broderick who is recommending hospice/comfort care measures given the ongoing progression of his underlying malignancy as noted by testing/imaging to date. I will continue to follow the patient with you while he made hospitalized make further recommendations during his hospital course. Thank you for allowing me to participate in the care of this patient. History of Present Illness Reason for Consult Consult date: 10/24/22 Reason for consult: acute renal failure (on chronic kidney disease) and hyponatremia (acute on chronic) Chief Complaint Chief complaint: Ascites History of Present Illness Narrative: The patient is a 72-year-old male with a past medical history as noted below who presented to [facility] Emergency room with nausea in association with generalized weakness. The patient has been having issues and problems with fatigue and weakness for last several days if not longer prior to his presentation to the emergency room. He has also had multiple episodes of vomiting in association with nausea as well. He is known to have paracentesis about every 2 weeks due to his known history of pancreatic cancer with liver metastasis resulting in significant ascites formation. He was due for a paracentesis on the day of presentation to the emergency room but was unable to make that appointment due to his ongoing fatigue and weakness. No reported fevers, chills, chest pain, shortness of breath but he does repo
--- NOTE | 2022-10-24 16:30 | P.CONNP_ITS ---
Assessment and Plan Assessment and plan (1) CARMEN (acute kidney injury): Code(s): N17.9 - Acute kidney failure, unspecified Status: Acute Assessment and Plan: * multifactorial etiology: * prerenal factors (from GI symptoms) * liver physiology (decreased effective circulating volume leading to chronic prerenal azotemia worsened by need of diuretic therapy) * diuretic use * renal ultrasound noted * check urine electrolytes * follow repeat labs and UOP (2) Stage 3a chronic kidney disease: Code(s): N18.31 - Chronic kidney disease, stage 3a Status: Chronic Assessment and Plan: * baseline creatinine runs around 1.1 - 1.4mg/dl * probably from necessity of diuretic use, gout, HTN, and age (3) Hyponatremia: Code(s): E87.1 - Hypo-osmolality and hyponatremia Status: Acute Assessment and Plan: * acute on chronic * usually runs around 128 - 136mmol/L * suspect related to CARMEN and progression of underlying malignancy * risk factors for low sodium: * pancreatic cancer (with clear progression of disease) * pain * narcotic use * diuretic use * PPI use * CARMEN/ARF * ascites * treatment for this will be challenging: * salt tabs alone may lead to more if not worsen ascites accumulation * diuretics to help with fluid removal could worsen sodium as well as creatinine * salt tabs + diuretics may work but unclear if renal function would tolerated * perhaps IV albumin chased by IV diuretics may help (not a good intermediate manager solution) * not sure how well fluid restriction would work since he is already has poor oral intake at baseline * agree with more frequent paracenteses for now * follow trend of sodium (4) Abdominal ascites: Qualifiers: Ascites type: malignant Qualified Code(s): R18.0 - Malignant ascites Code(s): R18.8 - Other ascites Status: Acute Assessment and Plan: * as noted by imaging to date * s/p paracentesis with 5L removed * suspect may require another paracentesis soon -- abdominal distension noted today * related to liver mets from #5 (5) Pancreatic cancer: Qualifiers: Pancreatic malignancy location: tail of pancreas Qualified Code(s): C25.2 - Malignant neoplasm of tail of pancreas Code(s): C25.9 - Malignant neoplasm of pancreas, unspecified Status: Chronic Assessment and Plan: * metastatic * now complicated by peritoneal carcinomatosis?and worsening liver masses * follows with Dr. Broderick Case discussed with Dr. Broderick who is recommending hospice/comfort care me asures given the ongoing progression of his underlying malignancy as noted by testing/imaging to date. I will continue to follow the patient with you while he made hospitalized make further recommendations during his hospital course. Thank you for allowing me to participate in the care of this patient. History of Present Illness Reason for Consult Consult date: 10/24/22 Reason for consult: acute renal failure (on chronic kidney disease) and hyponatremia (acute on chronic) Chief Complaint Chief complaint: Ascites History of Present Illness Narrative: The patient is a 72-year-old male with a past medical history as noted below who presented to [facility] Emergency room with nausea in association with generalized weakness. The patient has been having issues and problems with fatigue and weakness for last several days if not longer prior to his presentation to the emergenc
--- NOTE | 2022-10-24 17:06 | PDONCCN ---
HPI - Date of Consult Date/Time: 10/24/22 17:06 Requesting Physician: Olive Zavala DO Primary Care Provider: Shun Gorman, MD - Consult Narrative Reason for consult: Metastatic pancreatic cancer Narrative: Joshua Gray is a 72 year old male with history of metastatic pancreatic cancer started on maintenance chemotherapy with FOLFIRI regimen on August 27, 2022. He had good response with the induction chemotherapy with FOLFIRINOX with improvement in liver metastasis and stable disease. He came into the hospital with generalized weakness with nausea and abdominal distension. He has been having some difficulty swallowing fluid with pickups. He feels nauseated. He has been getting paracentesis on every 2 weeks basis. Patient had another round of paracentesis done with removal of [address] scan also showed large volume of ascites, moderate size right and small left pleural effusion along with peritoneal carcinomatosis and worsening of the liver masses. Labs showed hemoglobin of 6.9 and creatinine of 1.9. He looks pretty tired and fatigue and has been losing weight. His belly again looks distended after the paracentesis. Review of Systems - Review of Systems All systems reviewed & are unremarkable except as noted in HPI and bel - Neurologic Reports system reviewed and no additional complaints, except as documented, Reports hearing normal, Denies confusion PMFSH Medical History: Medical History (Last Reviewed 10/24/22 @ 13:31 by Joel Pavon MD) Acute saddle pulmonary embolus Anemia Anxiety Chronic GERD Colon cancer screening DDD (degenerative disc disease) Epigastric pain Gout HTN (hypertension) Hyperlipidemia Liver mass Obesity Obesity (BMI 30-39.9) Pancreatic cancer With Mets to the liver Pancreatic mass Port-A-Cath in place Prevention of chemotherapy-induced neutropenia Pulmonary emboli Surgical History: Surgical History (Last Reviewed 10/24/22 @ 13:31 by Joel Pavon MD) History of back surgery fusion S/P tonsillectomy Family History: Family History (Last Reviewed 10/24/22 @ 13:31 by Joel Pavon MD) Mother CHF (congestive heart failure), NYHA class I Father ESRD (end stage renal disease) - Social History Social History: Social History (Last Reviewed 10/24/22 @ 13:31 by Joel Pavon MD) Alcohol Use: Alcohol intake: former Drinks per week: 14 Substance Use: Last use: 2021 Others: Spiritual care concerns: No Living Arrangements: Living arrangements: with family Smoking Status: Smoking status: Former smoker Second hand tobacco smoke exposure: No Smoking Pack-years: Smoking packs per day: 2 Smoking cigarettes per day: 40.0 Years smoked: 30 Smoking pack-years: 60.00 Social Determinants of Health: Has the Lack of Transportation Kept You From Medical Appointments or From Getting Medications?: No Within the Past 12 Months, Were You Worried Whether Your Food Would Run Out Before You Got Money to Buy More?: Never True What is Your Housing Situation Today?: I Have Housing Are You Worried That in the Next 2 Months, You May Not Have Your Own Housing to Live In?: No Do You Have Trouble Paying Your Heating Or Electricity Bill?: No Do You Have Trouble Paying For Medicines?: No Are You Currently Unemployed and Looking for Work?: No Highest Level of Education Completed: High School Diploma/GED Do You Have Trouble With Childcare or the Care of a Family Member?: No Exam - Vital Signs Vital Signs - 24 hr 10/23/22 17:09 10/23/22 18:00 10/23/22 19:46 Temperature 36.9 C 36.4 C Pulse Rate 114 H 122 H Respiratory Rate 20 18 Blood Pressure 122/64 116/62 Pulse Oximetry 100 99 Oxygen Delivery Room Air 10/23/22 22:13 10/23/22 22:35 10/23/22 22:50 Temperature 36.8 C 36.6 C 36.3 C L Pulse Rate 119 H 120 H 110 H Respiratory Rate 24 H 18 18 Blood
[2022-10-24] MEDS: MORPHINE SULFATE (*CRX) 2 MG/ML INJ IV PUSH (18:43)
[2022-10-24] MEDS: chlorproMAZINE HCL 10 MG TABLET PO (18:43)
[2022-10-24 21:28] LABS: Hematocrit 29.1 % (42.0-52.0)
[2022-10-25] VITALS (12 sets, daily range): BP systolic 101–112; BP diastolic 60–80; PULSE 106–137; RESP 14–16; TEMP 36.4–37.3; O2SAT 95–97
[2022-10-25] MEDS: HYDROcodone/acetaminophen (*CRX) 10-325 MG TABLET 1 TAB PO ×4 (00:52→17:43)
[2022-10-25 05:58] LABS: Basophils Percent Auto 0.1 % (0.2-1.2); Hematocrit 31.4 % (42.0-52.0); Hemoglobin 9.6 g/dL (14.0-18.0); Immature Granulocyte Absolute 0.15 K/mm3 (0.00-0.031); Immature Granulocyte Percent A 1.2 % (0-0.5); Lymphocytes Absolute Auto 0.36 K/mm3 (0.9-3.2); Lymphocytes Percent Auto 2.8 % (18.3-44.2); Mean Corpuscular HGB Conc 30.6 g/dl (32-36); Mean Corpuscular Hemoglobin 30.4 pg (26-34); Mean Corpuscular Volume 99.4 fl (80-100); Mean Platelet Volume 9.5 fl (7.4-10.4); Monocytes Absolute Auto 1.2 K/mm3 (0.1-0.6); Monocytes Percent Auto 9.1 % (2.6-8.5); Neutrophils Absolute Auto 11.2 K/mm3 (1.3-6.7); Neutrophils Percent Auto 86.8 % (45.5-73.1); Nucleated Red Blood Cells Absolute Auto 0.1 K/mm3 (0.0-0.012); Platelet Count Result 531 k/mm3 (150-375); Red Blood Count 3.16 M/mm3 (4.6-6.20); Red Cell Distribution Width 19.5 % (11.5-14.5); White Blood Count 12.9 K/mm3 (4.5-10.0)
[2022-10-25 06:20] LABS: Alanine Aminotransferase 25 U/L (6-50); Alkaline Phosphatase 169 U/L (38-126); Anion Gap 8 mmol/L (8-16); Aspartate Amino Transferase 66 U/L (17-59); Bilirubin,Total 0.6 mg/dL (0.2-1.3); Blood Urea Nitrogen 40 mg/dL (9-20); Calcium 8.6 mg/dL (8.4-10.2); Carbon Dioxide 22 mmol/L (22-30); Chloride 94 mmol/L (98-107); Estimated CRCL calculation 30 ml/min; Estimated Glomerular Filt Rate 33; Glucose 114 mg/dL (65-110); Magnesium 2.5 mg/dL (1.6-2.3); Potassium 5.2 mmol/L (3.4-5.0); Sodium 124 mmol/L (137-145)
[2022-10-25 06:23] LABS: Creatine Kinase 92 U/L (55-170)
[2022-10-25] MEDS: MAGNESIUM OXIDE 400 MG TABLET PO (08:38)
[2022-10-25] MEDS: THERAPEUTIC MULTIVITAMINS/MINERALS TAB (*BKC) 1 TABLET PO (08:38)
[2022-10-25] MEDS: CYANOCOBALAMIN 1,000 MCG TABLET 1000 MCG PO (08:38)
[2022-10-25] MEDS: FERROUS SULFATE 324 MG TABLET PO (08:38)
[2022-10-25] MEDS: GABAPENTIN 300 MG CAPSULE PO ×2 (08:38→17:26)
[2022-10-25] MEDS: allopurinoL 300 MG TABLET PO (08:38)
[2022-10-25] MEDS: POTASSIUM CHLORIDE 20 MEQ TABLET.ER PO (08:38)
[2022-10-25] MEDS: PANTOPRAZOLE 40 MG TABLET PO ×2 (08:38→20:21)
[2022-10-25] MEDS: MEGESTROL ACETATE (*CHEMO) ORAL SUSP 40 MG/ML SYR 200 MG PO (08:39)
[2022-10-25] MEDS: ONDANSETRON INJ 4 MG/2 ML VIAL IV PUSH (09:01)
[2022-10-25] MEDS: METOPROLOL TARTRATE INJ 5 MG/5 ML VIAL 2.5 MG IV PUSH (09:58)
--- NOTE | 2022-10-25 10:30 | PM.IMPN ---
Progress Note: A&P Assessment and Plan (1) Anemia associated with chemotherapy: Code(s): D64.81 - Anemia due to antineoplastic chemotherapy; T45.1X5A - Adverse effect of antineoplastic and immunosuppressive drugs, initial encounter Status: Acute Assessment and Plan: H&H was 6.9 and 23.1 at admission On unit of PRBC given 10/23/22 Current H/H is 9.6/31.4 Appears that he is chronically iron deficient Give 500mg Iron infusion once Hold Eliquis for now Trend H/H Could be chronic iron deficient or of chronic disease anemia Transfuse as indicated Oncology consulted (2) Acute on chronic renal failure: Code(s): N17.9 - Acute kidney failure, unspecified; N18.9 - Chronic kidney disease, unspecified Status: Acute Assessment and Plan: Creatinine is noted to be elevated at 1.90 Currently 2.00 Baseline is 1.10-1.40 hold lasix for now Continue to trend labs adjust therapy as indicated (3) HTN (hypertension): Qualifiers: Hypertension type: primary hypertension Qualified Code(s): I10 - Essential (primary) hypertension Code(s): I10 - Essential (primary) hypertension Status: Acute Assessment and Plan: Current BP is 127/69 Lasix and spironolactone on hold, keep on hold for now with sodium being so low Continue to trend BP adjust as indicated (4) Chronic GERD: Code(s): K21.9 - Gastro-esophageal reflux disease without esophagitis Status: Acute Assessment and Plan: Start protonix 40mg BID (5) Acute hyponatremia: Code(s): E87.1 - Hypo-osmolality and hyponatremia Status: Acute Assessment and Plan: sodium is also low at 126 Was just 131 on 10/15/22 Currently at 124 Most likely the reason for the weakness Could be related to fluid overload with ascites findings Continue to trend Consult nephrology with renal failure and hyponatremia (6) Abdominal ascites: Qualifiers: Ascites type: malignant Qualified Code(s): R18.0 - Malignant ascites Code(s): R18.8 - Other ascites Status: Acute Assessment and Plan: Secondary to metastatic peritoneal cancer Continue with therapeutic paracentesis Last paracentesis was 10/23/22 with 5000ml off Hold spironolactone, give one dose of lasix (7) Peritoneal carcinomatosis: Code(s): C78.6 - Secondary malignant neoplasm of retroperitoneum and peritoneum Status: Chronic Assessment and Plan: 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 Multiple liver masses noted and are worse on this CT Currently in treatment Therapeutic paracentesis Q2WK last paracentesis drained off 5000ml Oncology consulted (8) Dysphagia: Code(s): R13.10 - Dysphagia, unspecified Status: Acute Assessment and Plan: Do a small bowel water soluble xray Consult speech therapy when Bowel obstruction is completely ruled out monitor for signs of aspiration Plan On eliquis for PE that is noted to be resolved on 05/08/22 hold eliquis with notable anemia Time Spent With Patient Time: 53 minutes Subjective Date/time seen: 10/25/22 1030 Interval history: 10/25/22 1030 Patient is lying in bed with his eyes closed. Patient stated he has been nauseous this morning. He also was complaining of a little bit of swallow issue stating that when he takes a drink of water he feels lot of pressure in his chest. He states that the pain or pressure does not last too long however when it comes on he gets nauseous. He did state that he had a BM yesterday. He did state that he was weak. He asked for 2 things and stated that he just wanted to have more strength and he want to be able to swallow better. Sodium today is 124. He does appear to be pretty is distended will order another paracentesis.
--- NOTE | 2022-10-25 10:30 | P.PNIM_ITS ---
Progress Note: A&P Assessment and Plan (1) Anemia associated with chemotherapy: Code(s): D64.81 - Anemia due to antineoplastic chemotherapy; T45.1X5A - Adverse effect of antineoplastic and immunosuppressive drugs, initial encounter Status: Acute Assessment and Plan: * H&H was 6.9 and 23.1 at admission * On unit of PRBC given 10/23/22 * Current H/H is 9.6/31.4 * Appears that he is chronically iron deficient * Give 500mg Iron infusion once * Hold Eliquis for now * Trend H/H * Could be chronic iron deficient or of chronic disease anemia * Transfuse as indicated * Oncology consulted (2) Acute on chronic renal failure: Code(s): N17.9 - Acute kidney failure, unspecified; N18.9 - Chronic kidney disease, unspecified Status: Acute Assessment and Plan: * Creatinine is noted to be elevated at 1.90 * Currently 2.00 * Baseline is 1.10-1.40 * hold lasix for now * Continue to trend labs * adjust therapy as indicated (3) HTN (hypertension): Qualifiers: Hypertension type: primary hypertension Qualified Code(s): I10 - Essential (primary) hypertension Code(s): I10 - Essential (primary) hypertension Status: Acute Assessment and Plan: * Current BP is 127/69 * Lasix and spironolactone on hold, keep on hold for now with sodium being so low * Continue to trend BP * adjust as indicated (4) Chronic GERD: Code(s): K21.9 - Gastro-esophageal reflux disease without esophagitis Status: Acute Assessment and Plan: * Start protonix 40mg BID (5) Acute hyponatremia: Code(s): E87.1 - Hypo-osmolality and hyponatremia Status: Acute Assessment and Plan: * sodium is also low at 126 * Was just 131 on 10/15/22 * Currently at 124 * Most likely the reason for the weakness * Could be related to fluid overload with ascites findings * Continue to trend * Consult nephrology with renal failure and hyponatremia (6) Abdominal ascites: Qualifiers: Ascites type: malignant Qualified Code(s): R18.0 - Malignant ascites Code(s): R18.8 - Other ascites Status: Acute Assessment and Plan: * Secondary to metastatic peritoneal cancer * Continue with therapeutic paracentesis * Last paracentesis was 10/23/22 with 5000ml off * Hold spironolactone, give one dose of lasix (7) Peritoneal carcinomatosis: Code(s): C78.6 - Secondary malignant neoplasm of retroperitoneum and peritoneum Status: Chronic Assessment and Plan: * 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
--- NOTE | 2022-10-25 12:44 | PM.PNGS ---
Progress Note: A&P Assessment and Plan (1) Abnormal CT of the abdomen: Code(s): R93.5 - Abnormal findings on diagnostic imaging of other abdominal regions, including retroperitoneum Status: Acute Assessment and Plan: Plain films do not suggest small bowel obstruction. Patient continues to complain of dysphagia. Clinically he has recurrent ascites despite having had 5 L drained just 2 days ago. Discussed with hospitalist, Carlos Barrientos. Will get water soluble upper GI small-bowel follow-through. (2) Peritoneal carcinomatosis: Code(s): C78.6 - Secondary malignant neoplasm of retroperitoneum and peritoneum Status: Chronic Assessment and Plan: Surgery really not an option with carcinomatosis that is extensive. (3) Abdominal ascites: Qualifiers: Ascites type: malignant Qualified Code(s): R18.0 - Malignant ascites Code(s): R18.8 - Other ascites Status: Acute Assessment and Plan: Recurring fairly quickly. Considering possibility of chronic home drainage with either shunt or valve placement. (4) Dysphagia: Code(s): R13.10 - Dysphagia, unspecified Status: Acute Assessment and Plan: Getting upper GI today. (5) Tachycardia: Code(s): R00.0 - Tachycardia, unspecified Status: Acute Assessment and Plan: Heart rate even higher than before, now 120s to 130s. Suspect due to hypovolemia from ascites production. Subjective Subjective Date/Time Seen: 10/25/22 12:44 Patient reports: pain is less and afebrile Interval history: Complains of dysphagia, poor appetite, abdomen more distended. Discussing hospice. No abdominal pain or vomiting. On clear liquids but trouble eating mostly with dysphagia Review of Systems Review of Systems: All systems reviewed & are unremarkable except as noted in HPI and below (HPI and those items noted below) Constitutional: Constitutional: Denies chills and Denies fever(s) Cardiovascular: Cardiovascular: Denies chest pain, Denies diaphoresis, Denies dyspnea and Denies paroxysmal nocturnal dyspnea Respiratory: Respiratory: Denies chest congestion, Denies cough and Denies dyspnea Integumentary/Breasts: Skin/Breast: Denies lesions and Denies rash Exam Const: General: comfortable and no acute distress Nutritional Appearance: cachectic Orientation/consciousness: patient oriented x3 GI: Inspection: distended GI Palp: Yes Soft to palpation, No Tenderness to palpation present (GI), No Guarding due to palpation present (GI), Yes Ascites present and No Rebound tenderness present Auscultation: Hypoactive bowel sounds present Neuro: General: patient oriented x3 and no focal motor deficits Extrem: General: no calf tenderness and no edema Psych: Affect: normal affect Insight: Good insight present (Psych) Judgement: Good judgement present (Psych) Objective Data Vital Signs Vital Signs: Vital Signs - 24 hr 10/24/22 14:48 10/24/22 16:00 10/24/22 19:43 Temperature 36.5 C 37.4 C Pulse Rate 121 H 118 H 120 H Respiratory Rate 22 H 16 Blood Pressure 113/61 120/67 Pulse Oximetry 98 95 Oxygen Delivery 10/24/22 21:00 10/24/22 21:15 10/24/22 20:00 Temperature Pulse Rate 121 H Respiratory Rate Blood Pressure Pulse Oximetry 95 Oxygen Delivery Room Air Room Air 10/25/22 00:00 10/25/22 04:00 10/25/22 05:21 Temperature 36.8 C Pulse Rate 129 H 127 H 134 H Respiratory Rate 16 Blood Pressure 112/66 Pulse Oximetry 96 Oxygen Delivery 10/25/22 09:58 10/25/22 10:20 10/25/22 08:00 Temperature Pulse Rate 137 H 130 H Respiratory Rate Blood Pressure 112/60 Pulse Oximetry Oxygen Delivery 10/25/22 08:40 Temperature Pulse Rate Respiratory Rate Blood Pressure Pulse Oximetry Oxygen Delivery Room Air Intake/Output Intake/Output: Intake & Output 10/22/22 10/23/22 10/24/22 10/25/22 23:59 23:59 23:59 23:59 Intake Total 50 2175
--- NOTE | 2022-10-25 13:27 | P.PNNP_ITS ---
Progress Note: A&P Assessment and Plan (1) CARMEN (acute kidney injury): Code(s): N17.9 - Acute kidney failure, unspecified Status: Acute Assessment and Plan: * multifactorial etiology: * prerenal factors (from GI symptoms) * liver physiology (decreased effective circulating volume leading to chronic prerenal azotemia worsened by need of diuretic therapy) * previous diuretic use * evaluation to date: * normal renal ultrasound * urine electrolytes prerenal (manifestation of volume depletion + liver physiology) * UA bland * CPK normal * follow repeat labs and UOP (2) Stage 3a chronic kidney disease: Code(s): N18.31 - Chronic kidney disease, stage 3a Status: Chronic Assessment and Plan: * baseline creatinine runs around 1.1 - 1.4mg/dl * probably from necessity of diuretic use, gout, HTN, and age-related change (3) Hyponatremia: Code(s): E87.1 - Hypo-osmolality and hyponatremia Status: Acute Assessment and Plan: * acute on chronic * usually runs around 128 - 136mmol/L * suspect related to CARMEN and progression of underlying malignancy * risk factors for low sodium: * pancreatic cancer (with clear progression of disease) * pain * narcotic use * diuretic use * PPI use * CARMEN/ARF * ascites * evaluation to date: * urine electrolytes prerenal (despite evidence of fluid retention -- probably a manifestation of his ascites: decreased effective circulating volume leading to chronic prerenal azotemia) * TSH and cortisol okay * serum/urine osmo pending * treatment for this will be challenging: * salt tabs alone may lead to more if not worsen ascites accumulation * diuretics to help with fluid removal could worsen sodium as well as creatinine/renal function * salt tabs + diuretics may work but unclear if renal function would tolerated * perhaps IV albumin chased by IV diuretics may help (not a good termite control service representative solution plus his serum albumin is not that low) * not sure how well fluid restriction would work since he is already has poor oral intake at baseline * agree with more frequent paracenteses for now * started on salt tabs -- will see how this works * despite his CARMEN, he does have swelling so adding low dose oral diuretics with salt tabs may help his sodium (i.e. 10mg bid with salt tabs) * consider empirically adding demeclocycline? * follow trend of sodium (4) Abdominal ascites: Qualifiers: Ascites type: malignant Qualified Code(s): R18.0 - Malignant ascites Code(s): R18.8 - Other ascites Status: Acute Assessment and Plan: * as noted by imaging to date * s/p paracentesis with 5L removed (on 10/23/22) * plan for repeat paracentesis * related to liver mets from #5 (5) Pancreatic cancer: Qualifiers: Pancreatic malignancy location: tail of pancreas Qualified Code(s): C25.2 - Malignant neoplasm of tail of pancreas Code(s): C25.9 - Malignant neoplasm of pancreas, unspecified Status: Chronic Assessment and Plan: * metastatic * now complicated by peritoneal carcinomatosis?and worsening liver masses * follows with Dr. Broderick Will continue to follow. Subjective Date/time seen: 10/25/22 13:27 Interval history: Follow-up for acute kidney injury/acute renal failure and acute on chronic hyponatremia. Worsening hyponatremia noted so started on salt tablets; still feels quite weak and fatigued; still having diff
--- NOTE | 2022-10-25 13:27 | PM.PNNEP ---
Progress Note: A&P Assessment and Plan (1) CARMEN (acute kidney injury): Code(s): N17.9 - Acute kidney failure, unspecified Status: Acute Assessment and Plan: multifactorial etiology: prerenal factors (from GI symptoms) liver physiology (decreased effective circulating volume leading to chronic prerenal azotemia worsened by need of diuretic therapy) previous diuretic use evaluation to date: normal renal ultrasound urine electrolytes prerenal (manifestation of volume depletion + liver physiology) UA bland CPK normal follow repeat labs and UOP (2) Stage 3a chronic kidney disease: Code(s): N18.31 - Chronic kidney disease, stage 3a Status: Chronic Assessment and Plan: baseline creatinine runs around 1.1 - 1.4mg/dl probably from necessity of diuretic use, gout, HTN, and age-related change (3) Hyponatremia: Code(s): E87.1 - Hypo-osmolality and hyponatremia Status: Acute Assessment and Plan: acute on chronic usually runs around 128 - 136mmol/L suspect related to CARMEN and progression of underlying malignancy risk factors for low sodium: pancreatic cancer (with clear progression of disease) pain narcotic use diuretic use PPI use CARMEN/ARF ascites evaluation to date: urine electrolytes prerenal (despite evidence of fluid retention -- probably a manifestation of his ascites: decreased effective circulating volume leading to chronic prerenal azotemia) TSH and cortisol okay serum/urine osmo pending treatment for this will be challenging: salt tabs alone may lead to more if not worsen ascites accumulation diuretics to help with fluid removal could worsen sodium as well as creatinine/renal function salt tabs + diuretics may work but unclear if renal function would tolerated perhaps IV albumin chased by IV diuretics may help (not a good jail solution plus his serum albumin is not that low) not sure how well fluid restriction would work since he is already has poor oral intake at baseline agree with more frequent paracenteses for now started on salt tabs -- will see how this works despite his CARMEN, he does have swelling so adding low dose oral diuretics with salt tabs may help his sodium (i.e. 10mg bid with salt tabs) consider empirically adding demeclocycline? follow trend of sodium (4) Abdominal ascites: Qualifiers: Ascites type: malignant Qualified Code(s): R18.0 - Malignant ascites Code(s): R18.8 - Other ascites Status: Acute Assessment and Plan: as noted by imaging to date s/p paracentesis with 5L removed (on 10/23/22) plan for repeat paracentesis related to liver mets from #5 (5) Pancreatic cancer: Qualifiers: Pancreatic malignancy location: tail of pancreas Qualified Code(s): C25.2 - Malignant neoplasm of tail of pancreas Code(s): C25.9 - Malignant neoplasm of pancreas, unspecified Status: Chronic Assessment and Plan: metastatic now complicated by peritoneal carcinomatosis?and worsening liver masses follows with Dr. Broderick Will continue to follow. Subjective Date/time seen: 10/25/22 13:27 Interval history: Follow-up for acute kidney injury/acute renal failure and acute on chronic hyponatremia. Worsening hyponatremia noted so started on salt tablets; still feels quite weak and fatigued; still having difficulty swallowing as this causes significant chest discomfort; furthermore, he feels his abdomen is getting more distended again despite recent paracentesis. Exam Narrative: General: chronically ill-appearing male sitting up in bed and uncomfortable Heart: tachycardic, normal S1 and S2; no rub Lungs: clear anteriorly; decreased at bases Abdomen: soft, nontender, ++distension, positive bowel sounds Extremities: no cyanosis or clubbing; 1 - 2+ edema Skin: warm and dry Objective Data Vital Signs Vital Signs:
[2022-10-25] MEDS: FUROSEMIDE INJ 40 MG/4 ML VIAL IV PUSH (14:12)
[2022-10-25] MEDS: SODIUM CHLORIDE 1 GM TABLET PO (17:26)
[2022-10-25 18:07] LABS: Creatinine Urine 239.6 mg/dL; Urea Random Urine 652 MG/DL
[2022-10-25 18:13] LABS: Sodium Urine Random < 5 meq/L; Total Protein Urine Random < 5 mg/dL; Ur Ttl Prot Creatinine Ratio < 0.02 mg/mg (0-0.20)
[2022-10-25] MEDS: LORazepam (*CRX) 0.5 MG TABLET PO (20:20)
[2022-10-26] VITALS (11 sets, daily range): BP systolic 105–109; BP diastolic 44–65; PULSE 104–125; RESP 18–20; TEMP 36.7–36.9; O2SAT 94–98
[2022-10-26 05:52] LABS: Basophils Percent Auto 0.1 % (0.2-1.2); Hematocrit 30.1 % (42.0-52.0); Hemoglobin 8.9 g/dL (14.0-18.0); Immature Granulocyte Absolute 0.18 K/mm3 (0.00-0.031); Immature Granulocyte Percent A 1.1 % (0-0.5); Lymphocytes Absolute Auto 0.34 K/mm3 (0.9-3.2); Lymphocytes Percent Auto 2.1 % (18.3-44.2); Mean Corpuscular HGB Conc 29.6 g/dl (32-36); Mean Corpuscular Hemoglobin 30.4 pg (26-34); Mean Corpuscular Volume 102.7 fl (80-100); Monocytes Absolute Auto 1.4 K/mm3 (0.1-0.6); Monocytes Percent Auto 8.6 % (2.6-8.5); Neutrophils Absolute Auto 14.6 K/mm3 (1.3-6.7); Neutrophils Percent Auto 88.1 % (45.5-73.1); Nucleated Red Blood Cells Absolute Auto 0.2 K/mm3 (0.0-0.012); Nucleated Red Blood Cells Perc 1.1 % (0.0-0.2); Platelet Count Result 524 k/mm3 (150-375); Red Blood Count 2.93 M/mm3 (4.6-6.20); Red Cell Distribution Width 19.2 % (11.5-14.5); White Blood Count 16.6 K/mm3 (4.5-10.0)
[2022-10-26 06:05] LABS: Alanine Aminotransferase 32 U/L (6-50); Alkaline Phosphatase 177 U/L (38-126); Anion Gap 10 mmol/L (8-16); Aspartate Amino Transferase 62 U/L (17-59); Bilirubin,Total 0.4 mg/dL (0.2-1.3); Blood Urea Nitrogen 51 mg/dL (9-20); Calcium 8.7 mg/dL (8.4-10.2); Carbon Dioxide 22 mmol/L (22-30); Chloride 91 mmol/L (98-107); Glucose 106 mg/dL (65-110); Magnesium 2.7 mg/dL (1.6-2.3); Potassium 5.6 mmol/L (3.4-5.0); Sodium 123 mmol/L (137-145)
[2022-10-26 06:36] LABS: Estimated CRCL calculation 22 ml/min; Estimated Glomerular Filt Rate 23
[2022-10-26 06:42] LABS: Platelet Clumps Present; Platelet Estimate Increased (Adequate)
[2022-10-26 06:45] LABS: Anisocytosis 1+ (NORMAL); Burr Cells 1+ (NORMAL); Macrocytosis 1+ (NORMAL); Schistocytes None Seen (NORMAL)
--- NOTE | 2022-10-26 08:54 | PCOTNOTE ---
Attempted to see pt. for occupational therapy evaluation. Pt. declined to participate at this time, as he is in pain and plans to have therapeutic paracentesis later this morning. Pt. requested return after this time to determine ability to participate. Nursing aware. Following.
[2022-10-26] MEDS: MORPHINE SULFATE (*CRX) 2 MG/ML INJ IV PUSH ×2 (09:50→15:45)
[2022-10-26] MEDS: MEGESTROL ACETATE (*CHEMO) ORAL SUSP 40 MG/ML SYR 200 MG PO (10:47)
[2022-10-26] MEDS: GABAPENTIN 300 MG CAPSULE PO ×2 (10:48→17:59)
[2022-10-26] MEDS: allopurinoL 300 MG TABLET PO (10:48)
[2022-10-26] MEDS: MAGNESIUM OXIDE 400 MG TABLET PO (10:48)
[2022-10-26] MEDS: FERROUS SULFATE 324 MG TABLET PO (10:48)
[2022-10-26] MEDS: CYANOCOBALAMIN 1,000 MCG TABLET 1000 MCG PO (10:48)
[2022-10-26] MEDS: SODIUM CHLORIDE 1 GM TABLET PO ×2 (10:48→17:59)
[2022-10-26] MEDS: PANTOPRAZOLE 40 MG TABLET PO ×2 (10:49→20:38)
[2022-10-26] MEDS: THERAPEUTIC MULTIVITAMINS/MINERALS TAB (*BKC) 1 TABLET PO (10:49)
[2022-10-26] MEDS: METOPROLOL TARTRATE 12.5 MG TABLET PO ×2 (10:49→20:37)
--- NOTE | 2022-10-26 11:00 | PM.IMPN ---
Progress Note: A&P Assessment and Plan (1) Anemia associated with chemotherapy: Code(s): D64.81 - Anemia due to antineoplastic chemotherapy; T45.1X5A - Adverse effect of antineoplastic and immunosuppressive drugs, initial encounter Status: Acute Assessment and Plan: H&H was 6.9 and 23.1 at admission On unit of PRBC given 10/23/22 Current H/H is 8.9/30.1 Appears that he is chronically iron deficient Give 500mg Iron infusion once Hold Eliquis for now Trend H/H Could be chronic iron deficient or of chronic disease anemia Transfuse as indicated Oncology consulted (2) Acute on chronic renal failure: Qualifiers: Acute renal failure type: unspecified Chronic kidney disease stage: stage 3 (moderate) Chronic kidney disease stage 3 subtype: stage 3b (GFR 30-44) Qualified Code(s): N17.9 - Acute kidney failure, unspecified; N18.32 - Chronic kidney disease, stage 3b Code(s): N17.9 - Acute kidney failure, unspecified; N18.9 - Chronic kidney disease, unspecified Status: Acute Assessment and Plan: Creatinine is noted to be elevated at 1.90 Currently 2.70 Baseline is 1.10-1.40 hold lasix for now could be related to the one dose of lasix, fluid overload Fena score is 0.0 pre-renal Hold off on fluids as he is third spacing Continue to trend labs adjust therapy as indicated (3) HTN (hypertension): Qualifiers: Hypertension type: primary hypertension Qualified Code(s): I10 - Essential (primary) hypertension Code(s): I10 - Essential (primary) hypertension Status: Acute Assessment and Plan: Current BP is 123 Lasix and spironolactone on hold, keep on hold for now with sodium being so low Continue to trend BP adjust as indicated (4) Chronic GERD: Code(s): K21.9 - Gastro-esophageal reflux disease without esophagitis Status: Acute Assessment and Plan: Start protonix 40mg BID (5) Acute hyponatremia: Code(s): E87.1 - Hypo-osmolality and hyponatremia Status: Acute Assessment and Plan: sodium is also low at 126 Was just 131 on 10/15/22 Currently at 123, trending down Most likely the reason for the weakness Could be related to fluid overload with ascites findings Continue to trend Consult nephrology with renal failure and hyponatremia (6) Abdominal ascites: Qualifiers: Ascites type: malignant Qualified Code(s): R18.0 - Malignant ascites Code(s): R18.8 - Other ascites Status: Acute Assessment and Plan: Secondary to metastatic peritoneal cancer Continue with therapeutic paracentesis Last paracentesis was 10/23/22 with 5000ml off Paracentesis today 10/26/22 3.65L drained off Ordered repeat paracentesis for today Hold spironolactone, give one dose of Lasix (7) Peritoneal carcinomatosis: Code(s): C78.6 - Secondary malignant neoplasm of retroperitoneum and peritoneum Status: Chronic Assessment and Plan: 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 Multiple liver masses noted and are worse on this CT Currently in treatment Therapeutic paracentesis Q2WK last paracentesis drained off 5000ml Oncology consulted (8) Dysphagia: Qualifiers: Dysphagia type: unspecified Qualified Code(s): R13.10 - Dysphagia, unspecified Code(s): R13.10 - Dysphagia, unspecified Status: Acute Assessment and Plan: Do a small bowel water soluble xray Consult speech therapy when Bowel obstruction is completely ruled out monitor for signs of aspiration Plan On eliquis for PE that is noted to be resolved on 05/08/22 hold eliquis with notable anemia Time Spent With Patient Time: 59 minutes Time with patient: Greater than 35 minutes Subjective Date/time seen: 10/26/22 1100
--- NOTE | 2022-10-26 11:00 | P.PNIM_ITS ---
Progress Note: A&P Assessment and Plan (1) Anemia associated with chemotherapy: Code(s): D64.81 - Anemia due to antineoplastic chemotherapy; T45.1X5A - Adverse effect of antineoplastic and immunosuppressive drugs, initial encounter Status: Acute Assessment and Plan: * H&H was 6.9 and 23.1 at admission * On unit of PRBC given 10/23/22 * Current H/H is 8.9/30.1 * Appears that he is chronically iron deficient * Give 500mg Iron infusion once * Hold Eliquis for now * Trend H/H * Could be chronic iron deficient or of chronic disease anemia * Transfuse as indicated * Oncology consulted (2) Acute on chronic renal failure: Qualifiers: Acute renal failure type: unspecified Chronic kidney disease stage: stage 3 (moderate) Chronic kidney disease stage 3 subtype: stage 3b (GFR 30-44) Qualified Code(s): N17.9 - Acute kidney failure, unspecified; N18.32 - Chronic kidney disease, stage 3b Code(s): N17.9 - Acute kidney failure, unspecified; N18.9 - Chronic kidney disease, unspecified Status: Acute Assessment and Plan: * Creatinine is noted to be elevated at 1.90 * Currently 2.70 * Baseline is 1.10-1.40 * hold lasix for now * could be related to the one dose of lasix, fluid overload * Fena score is 0.0 pre-renal * Hold off on fluids as he is third spacing * Continue to trend labs * adjust therapy as indicated (3) HTN (hypertension): Qualifiers: Hypertension type: primary hypertension Qualified Code(s): I10 - Essential (primary) hypertension Code(s): I10 - Essential (primary) hypertension Status: Acute Assessment and Plan: * Current BP is 123 * Lasix and spironolactone on hold, keep on hold for now with sodium being so low * Continue to trend BP * adjust as indicated (4) Chronic GERD: Code(s): K21.9 - Gastro-esophageal reflux disease without esophagitis Status: Acute Assessment and Plan: * Start protonix 40mg BID (5) Acute hyponatremia: Code(s): E87.1 - Hypo-osmolality and hyponatremia Status: Acute Assessment and Plan: * sodium is also low at 126 * Was just 131 on 10/15/22 * Currently at 123, trending down * Most likely the reason for the weakness * Could be related to fluid overload with ascites findings * Continue to trend * Consult nephrology with renal failure and hyponatremia (6) Abdominal ascites: Qualifiers: Ascites type: malignant Qualified Code(s): R18.0 - Malignant ascites Code(s): R18.8 - Other ascites Status: Acute Assessment and Plan: * Secondary to metastatic peritoneal cancer * Continue with therapeutic paracentesis * Last paracentesis was 10/23/22 with 5000ml off * Paracentesis today 10/26/22 3.65L drained off * Ordered repeat paracentesis for today * Hold spironolactone, give one dose of Lasix (7) Peritoneal carcinomatosis: Code(s): C78.6 - Secondary malignant neoplasm of retroperitoneum and peritoneum Status: Chronic Assessment and Plan: * 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
[2022-10-26] MEDS: ONDANSETRON INJ 4 MG/2 ML VIAL IV PUSH ×2 (11:38→15:45)
--- NOTE | 2022-10-26 12:35 | PM.PNNEP ---
Progress Note: A&P Assessment and Plan (1) CARMEN (acute kidney injury): Code(s): N17.9 - Acute kidney failure, unspecified Status: Acute Assessment and Plan: worsening multifactorial etiology: prerenal factors (from GI symptoms) liver physiology (decreased effective circulating volume leading to chronic prerenal azotemia worsened by need of diuretic therapy) previous diuretic use evaluation to date: normal renal ultrasound urine electrolytes prerenal (manifestation of volume depletion + liver physiology) UA bland CPK normal follow repeat labs and UOP (2) Stage 3a chronic kidney disease: Code(s): N18.31 - Chronic kidney disease, stage 3a Status: Chronic Assessment and Plan: baseline creatinine runs around 1.1 - 1.4mg/dl probably from necessity of diuretic use, gout, HTN, and age-related change (3) Hyponatremia: Code(s): E87.1 - Hypo-osmolality and hyponatremia Status: Acute Assessment and Plan: acute on chronic usually runs around 128 - 136mmol/L suspect related to CARMEN and progression of underlying malignancy risk factors for low sodium: pancreatic cancer (with clear progression of disease) pain narcotic use diuretic use PPI use CARMEN/ARF ascites evaluation to date: urine electrolytes prerenal (despite evidence of fluid retention -- probably a manifestation of his ascites: decreased effective circulating volume leading to chronic prerenal azotemia) TSH and cortisol okay serum/urine osmo pending treatment for this will be challenging: salt tabs alone may lead to more if not worsen ascites accumulation diuretics to help with fluid removal could worsen sodium as well as creatinine/renal function salt tabs + diuretics may work but unclear if renal function would tolerated perhaps IV albumin chased by IV diuretics may help (not a good exterminator helper solution plus his serum albumin is not that low) not sure how well fluid restriction would work since he is already has poor oral intake at baseline agree with more frequent paracenteses for now started on salt tabs -- will see how this works he does have swelling so adding low dose oral diuretics with salt tabs may help his sodium (i.e. 10mg bid with salt tabs) however, with his CARMEN/ARF, not sure if this will help or worsen things... consider empirically adding demeclocycline? follow trend of sodium (4) Abdominal ascites: Qualifiers: Ascites type: malignant Qualified Code(s): R18.0 - Malignant ascites Code(s): R18.8 - Other ascites Status: Acute Assessment and Plan: as noted by imaging to date s/p paracentesis with 5L removed (on 10/23/22) plan for repeat paracentesis today related to liver mets from #5 (5) Pancreatic cancer: Qualifiers: Pancreatic malignancy location: tail of pancreas Qualified Code(s): C25.2 - Malignant neoplasm of tail of pancreas Code(s): C25.9 - Malignant neoplasm of pancreas, unspecified Status: Chronic Assessment and Plan: metastatic now complicated by peritoneal carcinomatosis?and worsening liver masses follows with Dr. Broderick Will continue to follow. Subjective Date/time seen: 10/26/22 12:35 Interval history: Follow-up for acute kidney injury/acute renal failure and acute on chronic hyponatremia. Renal function continue to deteriorate with ongoing downward trend of sodium as well; about ready to leave for repeat paracentesis today due to worsening abdominal distension; continues to have difficultly with dysphagia and associated chest discomfort; still with on/off nausea and vomiting as well. Exam Narrative: General: chronically ill-appearing male sitting up in bed and uncomfortable Heart: tachycardic, normal S1 and S2; no rub Lungs: clear anteriorly; decreased at bases Abdomen: soft, nontender, ++distension, positive bowel sounds Extremitie
--- NOTE | 2022-10-26 12:35 | P.PNNP_ITS ---
Progress Note: A&P Assessment and Plan (1) CARMEN (acute kidney injury): Code(s): N17.9 - Acute kidney failure, unspecified Status: Acute Assessment and Plan: * worsening * multifactorial etiology: * prerenal factors (from GI symptoms) * liver physiology (decreased effective circulating volume leading to chronic prerenal azotemia worsened by need of diuretic therapy) * previous diuretic use * evaluation to date: * normal renal ultrasound * urine electrolytes prerenal (manifestation of volume depletion + liver physiology) * UA bland * CPK normal * follow repeat labs and UOP (2) Stage 3a chronic kidney disease: Code(s): N18.31 - Chronic kidney disease, stage 3a Status: Chronic Assessment and Plan: * baseline creatinine runs around 1.1 - 1.4mg/dl * probably from necessity of diuretic use, gout, HTN, and age-related change (3) Hyponatremia: Code(s): E87.1 - Hypo-osmolality and hyponatremia Status: Acute Assessment and Plan: * acute on chronic * usually runs around 128 - 136mmol/L * suspect related to CARMEN and progression of underlying malignancy * risk factors for low sodium: * pancreatic cancer (with clear progression of disease) * pain * narcotic use * diuretic use * PPI use * CARMEN/ARF * ascites * evaluation to date: * urine electrolytes prerenal (despite evidence of fluid retention -- probably a manifestation of his ascites: decreased effective circulating volume leading to chronic prerenal azotemia) * TSH and cortisol okay * serum/urine osmo pending * treatment for this will be challenging: * salt tabs alone may lead to more if not worsen ascites accumulation * diuretics to help with fluid removal could worsen sodium as well as creatinine/renal function * salt tabs + diuretics may work but unclear if renal function would tolerated * perhaps IV albumin chased by IV diuretics may help (not a good nursing home solution plus his serum albumin is not that low) * not sure how well fluid restriction would work since he is already has poor oral intake at baseline * agree with more frequent paracenteses for now * started on salt tabs -- will see how this works * he does have swelling so adding low dose oral diuretics with salt tabs may help his sodium (i.e. 10mg bid with salt tabs) * however, with his CARMEN/ARF, not sure if this will help or worsen things... * consider empirically adding demeclocycline? * follow trend of sodium (4) Abdominal ascites: Qualifiers: Ascites type: malignant Qualified Code(s): R18.0 - Malignant ascites Code(s): R18.8 - Other ascites Status: Acute Assessment and Plan: * as noted by imaging to date * s/p paracentesis with 5L removed (on 10/23/22) * plan for repeat paracentesis today * related to liver mets from #5 (5) Pancreatic cancer: Qualifiers: Pancreatic malignancy location: tail of pancreas Qualified Code(s): C25.2 - Malignant neoplasm of tail of pancreas Code(s): C25.9 - Malignant neoplasm of pancreas, unspecified Status: Chronic Assessment and Plan: * metastatic * now complicated by peritoneal carcinomatosis?and worsening liver masses * follows with Dr. Broderick Will continue to follow. Subjective Date/time seen: 10/26/22 12:35 Interval history: Follow-up for acute kidney injury/acute renal failure and acute on chronic hyponatremia. Renal function continue t
[2022-10-26 16:43] LABS: Basophils Percent Auto 0.1 % (0.2-1.2); Hematocrit 29.3 % (42.0-52.0); Hemoglobin 8.9 g/dL (14.0-18.0); Immature Granulocyte Absolute 0.12 K/mm3 (0.00-0.031); Immature Granulocyte Percent A 0.9 % (0-0.5); Lymphocytes Absolute Auto 0.32 K/mm3 (0.9-3.2); Lymphocytes Percent Auto 2.3 % (18.3-44.2); Mean Corpuscular HGB Conc 30.4 g/dl (32-36); Mean Corpuscular Hemoglobin 30.6 pg (26-34); Mean Corpuscular Volume 100.7 fl (80-100); Mean Platelet Volume 9.9 fl (7.4-10.4); Monocytes Absolute Auto 0.9 K/mm3 (0.1-0.6); Monocytes Percent Auto 6.4 % (2.6-8.5); Neutrophils Absolute Auto 12.8 K/mm3 (1.3-6.7); Neutrophils Percent Auto 90.3 % (45.5-73.1); Nucleated Red Blood Cells Absolute Auto 0.2 K/mm3 (0.0-0.012); Nucleated Red Blood Cells Perc 1.3 % (0.0-0.2); Platelet Count Result 491 k/mm3 (150-375); Red Blood Count 2.91 M/mm3 (4.6-6.20); Red Cell Distribution Width 19.1 % (11.5-14.5); White Blood Count 14.1 K/mm3 (4.5-10.0)
[2022-10-26 16:54] LABS: Anisocytosis 1+ (NORMAL); Platelet Estimate Increased (Adequate); Schistocytes None Seen (NORMAL)
[2022-10-26 16:58] LABS: Alanine Aminotransferase 33 U/L (6-50); Albumin Level 2.9 g/dL (3.5-5.1); Alkaline Phosphatase 150 U/L (38-126); Anion Gap 10 mmol/L (8-16); Aspartate Amino Transferase 84 U/L (17-59); Bilirubin,Total 0.5 mg/dL (0.2-1.3); Blood Urea Nitrogen 58 mg/dL (9-20); Calcium 8.6 mg/dL (8.4-10.2); Carbon Dioxide 21 mmol/L (22-30); Chloride 94 mmol/L (98-107); Glucose 116 mg/dL (65-110); Potassium 5.5 mmol/L (3.4-5.0); Sodium 125 mmol/L (137-145)
[2022-10-26 17:05] LABS: Estimated CRCL calculation 19 ml/min; Estimated Glomerular Filt Rate 20
[2022-10-26] MEDS: LORazepam (*CRX) 0.5 MG TABLET PO (20:37)
[2022-10-27] VITALS (10 sets, daily range): BP systolic 90–104; BP diastolic 52–61; PULSE 89–123; RESP 12–20; TEMP 36.3–36.7; O2SAT 91–99
[2022-10-27 06:02] LABS: Basophils Percent Auto 0.1 % (0.2-1.2); Hematocrit 30.3 % (42.0-52.0); Hemoglobin 9.1 g/dL (14.0-18.0); Immature Granulocyte Absolute 0.06 K/mm3 (0.00-0.031); Immature Granulocyte Percent A 0.5 % (0-0.5); Lymphocytes Absolute Auto 0.35 K/mm3 (0.9-3.2); Lymphocytes Percent Auto 2.6 % (18.3-44.2); Mean Corpuscular Hemoglobin 30.2 pg (26-34); Mean Corpuscular Volume 100.7 fl (80-100); Mean Platelet Volume 9.9 fl (7.4-10.4); Monocytes Absolute Auto 1.2 K/mm3 (0.1-0.6); Monocytes Percent Auto 8.8 % (2.6-8.5); Neutrophils Absolute Auto 11.7 K/mm3 (1.3-6.7); Nucleated Red Blood Cells Absolute Auto 0.2 K/mm3 (0.0-0.012); Nucleated Red Blood Cells Perc 1.2 % (0.0-0.2); Platelet Count Result 494 k/mm3 (150-375); Red Blood Count 3.01 M/mm3 (4.6-6.20); Red Cell Distribution Width 19.4 % (11.5-14.5); White Blood Count 13.3 K/mm3 (4.5-10.0)
[2022-10-27 06:18] LABS: Alanine Aminotransferase 43 U/L (6-50); Alkaline Phosphatase 147 U/L (38-126); Anion Gap 7 mmol/L (8-16); Aspartate Amino Transferase 126 U/L (17-59); Bilirubin,Total 0.6 mg/dL (0.2-1.3); Blood Urea Nitrogen 66 mg/dL (9-20); Calcium 8.8 mg/dL (8.4-10.2); Carbon Dioxide 26 mmol/L (22-30); Chloride 93 mmol/L (98-107); Glucose 100 mg/dL (65-110); Potassium 5.5 mmol/L (3.4-5.0); Sodium 126 mmol/L (137-145)
[2022-10-27 06:20] LABS: Estimated CRCL calculation 20 ml/min; Estimated Glomerular Filt Rate 21
--- NOTE | 2022-10-27 07:45 | PCOTNOTE ---
Attempted OT evaluation, patient to nauseous at this time. Will follow.
[2022-10-27] MEDS: ONDANSETRON INJ 4 MG/2 ML VIAL IV PUSH (07:49)
[2022-10-27] MEDS: METOPROLOL TARTRATE 12.5 MG TABLET PO (09:45)
[2022-10-27] MEDS: PANTOPRAZOLE 40 MG TABLET PO (09:46)
--- NOTE | 2022-10-27 11:14 | PC.NURSE ---
1000 Jolanta WEISS notified of pt refusing 0900 meds.
--- NOTE | 2022-10-27 11:23 | P.PNNP_ITS ---
Progress Note: A&P Assessment and Plan (1) CARMEN (acute kidney injury): Code(s): N17.9 - Acute kidney failure, unspecified Status: Acute Assessment and Plan: * worsening * multifactorial etiology: * prerenal factors (from GI symptoms) * liver physiology (decreased effective circulating volume leading to chronic prerenal azotemia worsened by need of diuretic therapy) * previous diuretic use * evaluation to date: * normal renal ultrasound * urine electrolytes prerenal (manifestation of volume depletion + liver p hysiology) * UA bland * CPK normal * follow repeat labs and UOP (2) Stage 3a chronic kidney disease: Code(s): N18.31 - Chronic kidney disease, stage 3a Status: Chronic Assessment and Plan: * baseline creatinine runs around 1.1 - 1.4mg/dl * probably from necessity of diuretic use, gout, HTN, and age-related change (3) Hyponatremia: Code(s): E87.1 - Hypo-osmolality and hyponatremia Status: Acute Assessment and Plan: * acute on chronic * usually runs around 128 - 136mmol/L * suspect related to CARMEN and progression of underlying malignancy * risk factors for low sodium: * pancreatic cancer (with clear progression of disease) * pain * narcotic use * diuretic use * PPI use * CARMEN/ARF * ascites * evaluation to date: * urine electrolytes prerenal (despite evidence of fluid retention -- probably a manifestation of his ascites: decreased effective circulating volume leading to chronic prerenal azotemia) * TSH and cortisol okay * serum/urine osmo pending * treatment for this will be challenging: * salt tabs alone may lead to more if not worsen ascites accumulation * diuretics to help with fluid removal could worsen sodium as well as creatinine/renal function * salt tabs + diuretics may work but unclear if renal function would tolerated * perhaps IV albumin chased by IV diuretics may help (not a good intermediate project manager solution plus his serum albumin is not that low) * not sure how well fluid restriction would work since he is already has poor oral intake at baseline * agree with more frequent paracenteses for now * started on salt tabs -- will see how this works * he does have swelling so adding low dose oral diuretics with salt tabs may help his sodium (i.e. 10mg bid with salt tabs) * however, with his CARMEN/ARF, not sure if this will help or worsen things... * follow trend of sodium (4) Abdominal ascites: Qualifiers: Ascites type: malignant Qualified Code(s): R18.0 - Malignant ascites Code(s): R18.8 - Other ascites Status: Acute Assessment and Plan: * as noted by imaging to date * s/p paracentesis with 5L removed (on 10/23/22) * plan for repeat paracentesis today * related to liver mets from #5 (5) Pancreatic cancer: Qualifiers: Pancreatic malignancy location: tail of pancreas Qualified Code(s): C2 5.2 - Malignant neoplasm of tail of pancreas Code(s): C25.9 - Malignant neoplasm of pancreas, unspecified Status: Chronic Assessment and Plan: * metastatic * now complicated by peritoneal carcinomatosis?and worsening liver masses * follows with Dr. Broderick With ongoing renal dysfunction and fluid retention, we could consider diuretic therapy but this could worsen his already deteriorating kidney function; dialysis is an option but he would still likely have recurrent ascites and still require numerous paracentesis procedures and I question if he would
--- NOTE | 2022-10-27 11:23 | PM.PNNEP ---
Progress Note: A&P Assessment and Plan (1) CARMEN (acute kidney injury): Code(s): N17.9 - Acute kidney failure, unspecified Status: Acute Assessment and Plan: worsening multifactorial etiology: prerenal factors (from GI symptoms) liver physiology (decreased effective circulating volume leading to chronic prerenal azotemia worsened by need of diuretic therapy) previous diuretic use evaluation to date: normal renal ultrasound urine electrolytes prerenal (manifestation of volume depletion + liver physiology) UA bland CPK normal follow repeat labs and UOP (2) Stage 3a chronic kidney disease: Code(s): N18.31 - Chronic kidney disease, stage 3a Status: Chronic Assessment and Plan: baseline creatinine runs around 1.1 - 1.4mg/dl probably from necessity of diuretic use, gout, HTN, and age-related change (3) Hyponatremia: Code(s): E87.1 - Hypo-osmolality and hyponatremia Status: Acute Assessment and Plan: acute on chronic usually runs around 128 - 136mmol/L suspect related to CARMEN and progression of underlying malignancy risk factors for low sodium: pancreatic cancer (with clear progression of disease) pain narcotic use diuretic use PPI use CARMEN/ARF ascites evaluation to date: urine electrolytes prerenal (despite evidence of fluid retention -- probably a manifestation of his ascites: decreased effective circulating volume leading to chronic prerenal azotemia) TSH and cortisol okay serum/urine osmo pending treatment for this will be challenging: salt tabs alone may lead to more if not worsen ascites accumulation diuretics to help with fluid removal could worsen sodium as well as creatinine/renal function salt tabs + diuretics may work but unclear if renal function would tolerated perhaps IV albumin chased by IV diuretics may help (not a good terminal make up operator solution plus his serum albumin is not that low) not sure how well fluid restriction would work since he is already has poor oral intake at baseline agree with more frequent paracenteses for now started on salt tabs -- will see how this works he does have swelling so adding low dose oral diuretics with salt tabs may help his sodium (i.e. 10mg bid with salt tabs) however, with his CARMEN/ARF, not sure if this will help or worsen things... follow trend of sodium (4) Abdominal ascites: Qualifiers: Ascites type: malignant Qualified Code(s): R18.0 - Malignant ascites Code(s): R18.8 - Other ascites Status: Acute Assessment and Plan: as noted by imaging to date s/p paracentesis with 5L removed (on 10/23/22) plan for repeat paracentesis today related to liver mets from #5 (5) Pancreatic cancer: Qualifiers: Pancreatic malignancy location: tail of pancreas Qualified Code(s): C25.2 - Malignant neoplasm of tail of pancreas Code(s): C25.9 - Malignant neoplasm of pancreas, unspecified Status: Chronic Assessment and Plan: metastatic now complicated by peritoneal carcinomatosis?and worsening liver masses follows with Dr. Broderick With ongoing renal dysfunction and fluid retention, we could consider diuretic therapy but this could worsen his already deteriorating kidney function; dialysis is an option but he would still likely have recurrent ascites and still require numerous paracentesis procedures and I question if he would even tolerate dialysis -- nursing informs me that family is in talks with hospice which seems a reasonable option as I suspect he will continue to deteriorate as noted by his status/labs in the last few days. Will continue to follow. Subjective Date/time seen: 10/27/22 11:23 Interval history: Follow-up for acute kidney injury/acute renal failure and acute on chronic hyponatremia. Sodium improving but renal function continue to deteriorate as evidenced by trend in labs; was sleeping comfor
--- NOTE | 2022-10-27 13:50 | P.PNIM_ITS ---
Progress Note: A&P Assessment and Plan (1) Anemia associated with chemotherapy: Code(s): D64.81 - Anemia due to antineoplastic chemotherapy; T45.1X5A - Adverse effect of antineoplastic and immunosuppressive drugs, initial encounter Status: Acute Assessment and Plan: * H&H was 6.9 and 23.1 at admission * On unit of PRBC given 10/23/22 * Current H/H is 9.1/30.3 * Appears that he is chronically iron deficient * Give 500mg Iron infusion once * Hold Eliquis for now * Trend H/H * Could be chronic iron deficient or of chronic disease anemia * Transfuse as indicated * Oncology consulted (2) Acute on chronic renal failure: Qualifiers: Acute renal failure type: unspecified Chronic kidney disease stage: stage 3 (moderate) Chronic kidney disease stage 3 subtype: stage 3b (GFR 30-44) Qualified Code(s): N17.9 - Acute kidney failure, unspecified; N18.32 - Chronic kidney disease, stage 3b Code(s): N17.9 - Acute kidney failure, unspecified; N18.9 - Chronic kidney disease, unspecified Status: Acute Assessment and Plan: * Creatinine elevated at 3.0 * Baseline is 1.10-1.40 * hold lasix for now * could be related to the one dose of lasix, fluid overload * Fena score is 0.0 pre-renal * Hold off on fluids as he is third spacing * Continue to trend labs * adjust therapy as indicated (3) HTN (hypertension): Qualifiers: Hypertension type: primary hypertension Qualified Code(s): I10 - Essential (primary) hypertension Code(s): I10 - Essential (primary) hypertension Status: Acute Assessment and Plan: * Current BP is 123 * Lasix and spironolactone on hold, keep on hold for now with sodium being so low * Continue to trend BP * adjust as indicated (4) Chronic GERD: Code(s): K21.9 - Gastro-esophageal reflux disease without esophagitis Status: Acute Assessment and Plan: * Start Protonix 40mg BID (5) Acute hyponatremia: Code(s): E87.1 - Hypo-osmolality and hyponatremia Status: Acute Assessment and Plan: * Sodium is also low at 126 * Was just 131 on 10/15/22 * Most likely the reason for the weakness * Could be related to fluid overload with ascites findings * Continue to trend * Consult nephrology with renal failure and hyponatremia (6) Abdominal ascites: Qualifiers: Ascites type: malignant Qualified Code(s): R18.0 - Malignant ascites Code(s): R18.8 - Other ascites Status: Acute Assessment and Plan: * Secondary to metastatic peritoneal cancer * Continue with therapeutic paracentesis * Last paracentesis was 10/23/22 with 5000ml off * Paracentesis 10/26/22 3.65L drained off * Hold spironolactone, give one dose of Lasix 10/25/22 (7) Peritoneal carcinomatosis: Code(s): 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
--- NOTE | 2022-10-27 13:50 | PM.IMPN ---
Progress Note: A&P Assessment and Plan (1) Anemia associated with chemotherapy: Code(s): D64.81 - Anemia due to antineoplastic chemotherapy; T45.1X5A - Adverse effect of antineoplastic and immunosuppressive drugs, initial encounter Status: Acute Assessment and Plan: H&H was 6.9 and 23.1 at admission On unit of PRBC given 10/23/22 Current H/H is 9.1/30.3 Appears that he is chronically iron deficient Give 500mg Iron infusion once Hold Eliquis for now Trend H/H Could be chronic iron deficient or of chronic disease anemia Transfuse as indicated Oncology consulted (2) Acute on chronic renal failure: Qualifiers: Acute renal failure type: unspecified Chronic kidney disease stage: stage 3 (moderate) Chronic kidney disease stage 3 subtype: stage 3b (GFR 30-44) Qualified Code(s): N17.9 - Acute kidney failure, unspecified; N18.32 - Chronic kidney disease, stage 3b Code(s): N17.9 - Acute kidney failure, unspecified; N18.9 - Chronic kidney disease, unspecified Status: Acute Assessment and Plan: Creatinine elevated at 3.0 Baseline is 1.10-1.40 hold lasix for now could be related to the one dose of lasix, fluid overload Fena score is 0.0 pre-renal Hold off on fluids as he is third spacing Continue to trend labs adjust therapy as indicated (3) HTN (hypertension): Qualifiers: Hypertension type: primary hypertension Qualified Code(s): I10 - Essential (primary) hypertension Code(s): I10 - Essential (primary) hypertension Status: Acute Assessment and Plan: Current BP is 123 Lasix and spironolactone on hold, keep on hold for now with sodium being so low Continue to trend BP adjust as indicated (4) Chronic GERD: Code(s): K21.9 - Gastro-esophageal reflux disease without esophagitis Status: Acute Assessment and Plan: Start Protonix 40mg BID (5) Acute hyponatremia: Code(s): E87.1 - Hypo-osmolality and hyponatremia Status: Acute Assessment and Plan: Sodium is also low at 126 Was just 131 on 10/15/22 Most likely the reason for the weakness Could be related to fluid overload with ascites findings Continue to trend Consult nephrology with renal failure and hyponatremia (6) Abdominal ascites: Qualifiers: Ascites type: malignant Qualified Code(s): R18.0 - Malignant ascites Code(s): R18.8 - Other ascites Status: Acute Assessment and Plan: Secondary to metastatic peritoneal cancer Continue with therapeutic paracentesis Last paracentesis was 10/23/22 with 5000ml off Paracentesis 10/26/22 3.65L drained off Hold spironolactone, give one dose of Lasix 10/25/22 (7) Peritoneal carcinomatosis: Code(s): C78.6 - Secondary malignant neoplasm of retroperitoneum and peritoneum Status: Chronic Assessment and Plan: 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 Multiple liver masses noted and are worse on this CT Currently in treatment Therapeutic paracentesis Q2WK Oncology consulted (8) Dysphagia: Qualifiers: Dysphagia type: unspecified Qualified Code(s): R13.10 - Dysphagia, unspecified Code(s): R13.10 - Dysphagia, unspecified Status: Acute Assessment and Plan: Do a small bowel water soluble xray Consult speech therapy when Bowel obstruction is completely ruled out monitor for signs of aspiration Plan On eliquis for PE that is noted to be resolved on 05/08/22 Subjective Date/time seen: 10/27/22 13:50 Interval history: Patient resting in bed comfortably. According to the nurse he has been complaining of the swallowing and that it has been causing him a burning sensation. Speech consulted. Patient was in and out of consciousness and stated that he was really tired. He did not want to answ
[2022-10-27] MEDS: HYDROcodone/acetaminophen (*CRX) 10-325 MG TABLET 1 TAB PO ×2 (14:32→19:49)
[2022-10-27] MEDS: SODIUM POLYSTYRENE SULFONONATE 15 GM/60 ML BTL PO (17:04)
[2022-10-28] VITALS (12 sets, daily range): BP systolic 94–114; BP diastolic 44–67; PULSE 96–129; RESP 14–20; TEMP 36.6–36.9; O2SAT 94–98
[2022-10-28] MEDS: HYDROcodone/acetaminophen (*CRX) 10-325 MG TABLET 1 TAB PO ×3 (04:59→17:43)
[2022-10-28 06:16] LABS: Basophils Percent Auto 0.1 % (0.2-1.2); Hematocrit 27.9 % (42.0-52.0); Hemoglobin 8.4 g/dL (14.0-18.0); Immature Granulocyte Absolute 0.06 K/mm3 (0.00-0.031); Immature Granulocyte Percent A 0.5 % (0-0.5); Lymphocytes Absolute Auto 0.33 K/mm3 (0.9-3.2); Lymphocytes Percent Auto 2.9 % (18.3-44.2); Mean Corpuscular HGB Conc 30.1 g/dl (32-36); Mean Corpuscular Hemoglobin 30.7 pg (26-34); Mean Corpuscular Volume 101.8 fl (80-100); Monocytes Percent Auto 8.7 % (2.6-8.5); Neutrophils Absolute Auto 10.1 K/mm3 (1.3-6.7); Neutrophils Percent Auto 87.8 % (45.5-73.1); Nucleated Red Blood Cells Absolute Auto 0.1 K/mm3 (0.0-0.012); Nucleated Red Blood Cells Perc 0.9 % (0.0-0.2); Platelet Count Result 449 k/mm3 (150-375); Red Blood Count 2.74 M/mm3 (4.6-6.20); Red Cell Distribution Width 19.3 % (11.5-14.5); White Blood Count 11.6 K/mm3 (4.5-10.0)
[2022-10-28 06:34] LABS: Alanine Aminotransferase 79 U/L (6-50); Alkaline Phosphatase 152 U/L (38-126); Anion Gap 6 mmol/L (8-16); Aspartate Amino Transferase 202 U/L (17-59); Blood Urea Nitrogen 69 mg/dL (9-20); Calcium 8.4 mg/dL (8.4-10.2); Carbon Dioxide 23 mmol/L (22-30); Chloride 95 mmol/L (98-107); Glucose 94 mg/dL (65-110); Potassium 5.9 mmol/L (3.4-5.0); Sodium 124 mmol/L (137-145)
[2022-10-28 06:34] LABS: Ammonia < 9 umol/L (9-30)
[2022-10-28 06:51] LABS: Estimated CRCL calculation 23 ml/min; Estimated Glomerular Filt Rate 24
--- NOTE | 2022-10-28 09:38 | PCSTNOTE ---
Please refer to the Bedside Swallow Evaluation in the EMR. Please note, silent aspiration cannot be ruled out at bedside.
--- NOTE | 2022-10-28 10:18 | P.PNNP_ITS ---
Progress Note: A&P Assessment and Plan (1) CARMEN (acute kidney injury): Code(s): N17.9 - Acute kidney failure, unspecified Status: Acute Assessment and Plan: * fluctuating * multifactorial etiology: * prerenal factors (from GI symptoms) * liver physiology (decreased effective circulating volume leading to chronic prerenal azotemia worsened by need of diuretic therapy) * previous diuretic use * evaluation to date: * normal renal ultrasound * urine electrolytes prerenal (manifestation of volume depletion + liver physiology) * UA bland * CPK normal * giving rising K+ and ascites, will add back lasix (on the assumption this will also help facilitate comfort) * follow repeat labs and UOP (2) Stage 3a chronic kidney disease: Code(s): N18.31 - Chronic kidney disease, stage 3a Status: Chronic Assessment and Plan: * baseline creatinine runs around 1.1 - 1.4mg/dl * probably from necessity of diuretic use, gout, HTN, and age-related change (3) Hyponatremia: Code(s): E87.1 - Hypo-osmolality and hyponatremia Status: Acute Assessment and Plan: * acute on chronic * usually runs around 128 - 136mmol/L * suspect related to CARMEN and progression of underlying malignancy * risk factors for low sodium: * pancreatic cancer (with clear progression of disease) * pain * narcotic use * diuretic use * PPI use * CARMEN/ARF * ascites * evaluation to date: * urine electrolytes prerenal (despite evidence of fluid retention -- pro bably a manifestation of his ascites: decreased effective circulating volume leading to chronic prerenal azotemia) * TSH and cortisol okay * serum/urine osmo pending * treatment for this will be challenging: * salt tabs alone may lead to more if not worsen ascites accumulation * diuretics to help with fluid removal could worsen sodium as well as creatinine/renal function * salt tabs + diuretics may work but unclear if renal function would tolerated * perhaps IV albumin chased by IV diuretics may help (not a good care home solution plus his serum albumin is not that low) * not sure how well fluid restriction would work since he is already has poor oral intake at baseline * agree with more frequent paracenteses for now * started on salt tabs -- will see how this works * he does have swelling so adding low dose oral diuretics with salt tabs may help his sodium (i.e. 10mg bid with salt tabs) * however, with his CARMEN/ARF, not sure if this will help or worsen things... * follow trend of sodium (4) Abdominal ascites: Qualifiers: Ascites type: malignant Qualified Code(s): R18.0 - Malignant ascites Code(s): R18.8 - Other ascites Status: Acute Assessment and Plan: * as noted by imaging to date * s/p paracentesis with 5L removed (on 10/23/22) * plan for repeat paracentesis today * related to liver mets from #5 (5) Pancreatic cancer: Qualifiers: Pancreatic malignancy location: tail of pancreas Qualified Code(s): C25.2 - Malignant neoplasm of tail of pancreas Code(s): C25.9 - Malignant neoplasm of pancreas, unspecified Status: Chronic Assessment and Plan: * metastatic * now complicated by peritoneal carcinomatosis?and worsening liver masses * follows with Dr. Broderick * planning for hospice care Will continue to follow. Subjective Date/time seen: 10/28/22 10:18 Interval history: Follow-up for acute preeti
--- NOTE | 2022-10-28 10:18 | PM.PNNEP ---
Progress Note: A&P Assessment and Plan (1) CARMEN (acute kidney injury): Code(s): N17.9 - Acute kidney failure, unspecified Status: Acute Assessment and Plan: fluctuating multifactorial etiology: prerenal factors (from GI symptoms) liver physiology (decreased effective circulating volume leading to chronic prerenal azotemia worsened by need of diuretic therapy) previous diuretic use evaluation to date: normal renal ultrasound urine electrolytes prerenal (manifestation of volume depletion + liver physiology) UA bland CPK normal giving rising K+ and ascites, will add back lasix (on the assumption this will also help facilitate comfort) follow repeat labs and UOP (2) Stage 3a chronic kidney disease: Code(s): N18.31 - Chronic kidney disease, stage 3a Status: Chronic Assessment and Plan: baseline creatinine runs around 1.1 - 1.4mg/dl probably from necessity of diuretic use, gout, HTN, and age-related change (3) Hyponatremia: Code(s): E87.1 - Hypo-osmolality and hyponatremia Status: Acute Assessment and Plan: acute on chronic usually runs around 128 - 136mmol/L suspect related to CARMEN and progression of underlying malignancy risk factors for low sodium: pancreatic cancer (with clear progression of disease) pain narcotic use diuretic use PPI use CARMEN/ARF ascites evaluation to date: urine electrolytes prerenal (despite evidence of fluid retention -- probably a manifestation of his ascites: decreased effective circulating volume leading to chronic prerenal azotemia) TSH and cortisol okay serum/urine osmo pending treatment for this will be challenging: salt tabs alone may lead to more if not worsen ascites accumulation diuretics to help with fluid removal could worsen sodium as well as creatinine/renal function salt tabs + diuretics may work but unclear if renal function would tolerated perhaps IV albumin chased by IV diuretics may help (not a good equipment operator intermodal yard solution plus his serum albumin is not that low) not sure how well fluid restriction would work since he is already has poor oral intake at baseline agree with more frequent paracenteses for now started on salt tabs -- will see how this works he does have swelling so adding low dose oral diuretics with salt tabs may help his sodium (i.e. 10mg bid with salt tabs) however, with his CARMEN/ARF, not sure if this will help or worsen things... follow trend of sodium (4) Abdominal ascites: Qualifiers: Ascites type: malignant Qualified Code(s): R18.0 - Malignant ascites Code(s): R18.8 - Other ascites Status: Acute Assessment and Plan: as noted by imaging to date s/p paracentesis with 5L removed (on 10/23/22) plan for repeat paracentesis today related to liver mets from #5 (5) Pancreatic cancer: Qualifiers: Pancreatic malignancy location: tail of pancreas Qualified Code(s): C25.2 - Malignant neoplasm of tail of pancreas Code(s): C25.9 - Malignant neoplasm of pancreas, unspecified Status: Chronic Assessment and Plan: metastatic now complicated by peritoneal carcinomatosis?and worsening liver masses follows with Dr. Broderick planning for hospice care Will continue to follow. Subjective Date/time seen: 10/28/22 10:18 Interval history: Follow-up for acute kidney injury/acute renal failure and acute on chronic hyponatremia. Sodium and renal function continue to fluctuate in association with rising potassium/hyperkalemia; still with poor oral intake at this time; family in the process of switching to comfort care measures/hospice but apparently trying to finalize details; worsening distension again despite recent paracentesis. Exam Narrative: General: chronically ill-appearing male sitting up in bed; fatigued Heart: tachycardic, normal S1 and S2; no rub Lungs: clear anteriorly;
[2022-10-28] MEDS: MEGESTROL ACETATE (*CHEMO) ORAL SUSP 40 MG/ML SYR 200 MG PO (10:19)
[2022-10-28] MEDS: FERROUS SULFATE 324 MG TABLET PO (10:19)
[2022-10-28] MEDS: THERAPEUTIC MULTIVITAMINS/MINERALS TAB (*BKC) 1 TABLET PO (10:19)
[2022-10-28] MEDS: CYANOCOBALAMIN 1,000 MCG TABLET 1000 MCG PO (10:19)
[2022-10-28] MEDS: allopurinoL 300 MG TABLET PO (10:19)
[2022-10-28] MEDS: SODIUM CHLORIDE 1 GM TABLET PO ×2 (10:19→17:36)
[2022-10-28] MEDS: PANTOPRAZOLE 40 MG TABLET PO (10:19)
[2022-10-28] MEDS: MAGNESIUM OXIDE 400 MG TABLET PO (10:20)
[2022-10-28] MEDS: GABAPENTIN 300 MG CAPSULE PO ×2 (10:20→17:35)
[2022-10-28] MEDS: CALCIUM CARBONATE (TUMS) 500 MG (200 MG ELEMENTAL) PO (10:29)
--- NOTE | 2022-10-28 13:51 | P.PNIM_ITS ---
Progress Note: A&P Assessment and Plan (1) Anemia associated with chemotherapy: Code(s): D64.81 - Anemia due to antineoplastic chemotherapy; T45.1X5A - Adverse effect of antineoplastic and immunosuppressive drugs, initial encounter Status: Acute Assessment and Plan: * H&H was 6.9 and 23.1 at admission * On unit of PRBC given 10/23/22 * Current H/H is 9.1/30.3 * Appears that he is chronically iron deficient * Give 500mg Iron infusion once * Hold Eliquis for now * Trend H/H * Could be chronic iron deficient or of chronic disease anemia * Transfuse as indicated * Oncology consulted (2) Acute on chronic renal failure: Qualifiers: Acute renal failure type: unspecified Chronic kidney disease stage: stage 3 (moderate) Chronic kidney disease stage 3 subtype: stage 3b (GFR 30-44) Qualified Code(s): N17.9 - Acute kidney failure, unspecified; N18.32 - Chronic kidney disease, stage 3b Code(s): N17.9 - Acute kidney failure, unspecified; N18.9 - Chronic kidney disease, unspecified Status: Acute Assessment and Plan: * Creatinine elevated at 2.6 * Baseline is 1.10-1.40 * hold Lasix for now * could be related to the one dose of Lasix, fluid overload * Fena score is 0.0 pre-renal * Hold off on fluids as he is third spacing * Continue to trend labs * Adjust therapy as indicated (3) HTN (hypertension): Qualifiers: Hypertension type: primary hypertension Qualified Code(s): I10 - Essential (primary) hypertension Code(s): I10 - Essential (primary) hypertension Status: Acute Assessment and Plan: * Current BP is 123. * Lasix and spironolactone on hold, keep on hold for now with sodium being so low. * Continue to trend BP. * adjust as indicated. (4) Chronic GERD: Code(s): K21.9 - Gastro-esophageal reflux disease without esophagitis Status: Acute Assessment and Plan: * Start Protonix 40mg IV BID (5) Acute hyponatremia: Code(s): E87.1 - Hypo-osmolality and hyponatremia Status: Acute Assessment and Plan: * Sodium is also low at 124 * Was just 131 on 10/15/22 * Most likely the reason for the weakness * Could be related to fluid overload with ascites findings * Continue to trend * Consult nephrology with renal failure and hyponatremia (6) Abdominal ascites: Qualifiers: Ascites type: malignant Qualified Code(s): R18.0 - Malignant ascites Code(s): R18.8 - Other ascites Status: Acute Assessment and Plan: * Secondary to metastatic peritoneal cancer * Continue with therapeutic paracentesis * Last paracentesis was 10/23/22 with 5000ml off * Paracentesis 10/26/22 3.65L drained off * Hold spironolactone, give one dose of Lasix 10/25/22 * Abdominal US 10/28 to assess ascites. 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
--- NOTE | 2022-10-28 13:51 | PM.IMPN ---
Progress Note: A&P Assessment and Plan (1) Anemia associated with chemotherapy: Code(s): D64.81 - Anemia due to antineoplastic chemotherapy; T45.1X5A - Adverse effect of antineoplastic and immunosuppressive drugs, initial encounter Status: Acute Assessment and Plan: H&H was 6.9 and 23.1 at admission On unit of PRBC given 10/23/22 Current H/H is 9.1/30.3 Appears that he is chronically iron deficient Give 500mg Iron infusion once Hold Eliquis for now Trend H/H Could be chronic iron deficient or of chronic disease anemia Transfuse as indicated Oncology consulted (2) Acute on chronic renal failure: Qualifiers: Acute renal failure type: unspecified Chronic kidney disease stage: stage 3 (moderate) Chronic kidney disease stage 3 subtype: stage 3b (GFR 30-44) Qualified Code(s): N17.9 - Acute kidney failure, unspecified; N18.32 - Chronic kidney disease, stage 3b Code(s): N17.9 - Acute kidney failure, unspecified; N18.9 - Chronic kidney disease, unspecified Status: Acute Assessment and Plan: Creatinine elevated at 2.6 Baseline is 1.10-1.40 hold Lasix for now could be related to the one dose of Lasix, fluid overload Fena score is 0.0 pre-renal Hold off on fluids as he is third spacing Continue to trend labs Adjust therapy as indicated (3) HTN (hypertension): Qualifiers: Hypertension type: primary hypertension Qualified Code(s): I10 - Essential (primary) hypertension Code(s): I10 - Essential (primary) hypertension Status: Acute Assessment and Plan: Current BP is 123. Lasix and spironolactone on hold, keep on hold for now with sodium being so low. Continue to trend BP. adjust as indicated. (4) Chronic GERD: Code(s): K21.9 - Gastro-esophageal reflux disease without esophagitis Status: Acute Assessment and Plan: Start Protonix 40mg IV BID (5) Acute hyponatremia: Code(s): E87.1 - Hypo-osmolality and hyponatremia Status: Acute Assessment and Plan: Sodium is also low at 124 Was just 131 on 10/15/22 Most likely the reason for the weakness Could be related to fluid overload with ascites findings Continue to trend Consult nephrology with renal failure and hyponatremia (6) Abdominal ascites: Qualifiers: Ascites type: malignant Qualified Code(s): R18.0 - Malignant ascites Code(s): R18.8 - Other ascites Status: Acute Assessment and Plan: Secondary to metastatic peritoneal cancer Continue with therapeutic paracentesis Last paracentesis was 10/23/22 with 5000ml off Paracentesis 10/26/22 3.65L drained off Hold spironolactone, give one dose of Lasix 10/25/22 Abdominal US 10/28 to assess ascites. 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 Patient started on IV Protonix b.i.d. Speech therapy consulted Plan On eliquis for PE that is noted to be resolved on 05/08/22 Subjective Date/time seen: 10/28/22 13:51 Interval history: Patient resting in bed appearing semi uncomfortable. States that his abdomen feels very full and state
[2022-10-28] MEDS: FUROSEMIDE 40 MG TABLET PO (17:33)
[2022-10-28] MEDS: SODIUM POLYSTYRENE SULFONONATE 15 GM/60 ML BTL PO (17:44)
[2022-10-28] MEDS: ONDANSETRON INJ 4 MG/2 ML VIAL IV PUSH (18:26)
[2022-10-28] MEDS: LORazepam (*CRX) 0.5 MG TABLET PO (19:59)
[2022-10-28] MEDS: METOPROLOL TARTRATE 12.5 MG TABLET PO (21:38)
[2022-10-28] MEDS: PANTOPRAZOLE SODIUM IV 40 MG VIAL IV PUSH (21:39)
[2022-10-29] VITALS: PULSE 82
[2022-10-29 04:00] VITALS: PULSE 141
[2022-10-29 05:13] LABS: Basophils Percent Auto 0.1 % (0.2-1.2); Hematocrit 30.6 % (42.0-52.0); Hemoglobin 9.2 g/dL (14.0-18.0); Immature Granulocyte Percent A 0.9 % (0-0.5); Lymphocytes Absolute Auto 0.27 K/mm3 (0.9-3.2); Lymphocytes Percent Auto 2.3 % (18.3-44.2); Mean Corpuscular HGB Conc 30.1 g/dl (32-36); Mean Corpuscular Hemoglobin 30.8 pg (26-34); Mean Corpuscular Volume 102.3 fl (80-100); Monocytes Absolute Auto 0.9 K/mm3 (0.1-0.6); Neutrophils Absolute Auto 10.4 K/mm3 (1.3-6.7); Neutrophils Percent Auto 88.7 % (45.5-73.1); Nucleated Red Blood Cells Absolute Auto 0.1 K/mm3 (0.0-0.012); Nucleated Red Blood Cells Perc 0.8 % (0.0-0.2); Platelet Count Result 436 k/mm3 (150-375); Red Blood Count 2.99 M/mm3 (4.6-6.20); Red Cell Distribution Width 19.3 % (11.5-14.5); White Blood Count 11.7 K/mm3 (4.5-10.0)
[2022-10-29 05:26] LABS: Alanine Aminotransferase 75 U/L (6-50); Albumin Level 2.9 g/dL (3.5-5.1); Alkaline Phosphatase 180 U/L (38-126); Anion Gap 9 mmol/L (8-16); Aspartate Amino Transferase 117 U/L (17-59); Bilirubin,Total 0.5 mg/dL (0.2-1.3); Blood Urea Nitrogen 65 mg/dL (9-20); Calcium 8.4 mg/dL (8.4-10.2); Carbon Dioxide 24 mmol/L (22-30); Chloride 94 mmol/L (98-107); Estimated CRCL calculation 22 ml/min; Estimated Glomerular Filt Rate 22; Glucose 108 mg/dL (65-110); Potassium 4.9 mmol/L (3.4-5.0); Sodium 127 mmol/L (137-145)
[2022-10-29 05:27] VITALS: BP 100/66; PULSE 123; RESP 17; TEMP 36.6; O2SAT 93
[2022-10-29 08:00] VITALS: PULSE 118
[2022-10-29] MEDS: HYDROcodone/acetaminophen (*CRX) 10-325 MG TABLET 1 TAB PO (08:08)
[2022-10-29 08:12] VITALS: PULSE 115
[2022-10-29] MEDS: METOPROLOL TARTRATE 12.5 MG TABLET PO (08:12)
[2022-10-29] MEDS: PANTOPRAZOLE SODIUM IV 40 MG VIAL IV PUSH (08:12)
[2022-10-29] MEDS: MORPHINE SULFATE (*CRX) 2 MG/ML INJ IV PUSH (10:11)
[2022-10-29 12:00] VITALS: PULSE 121
[2022-10-29] MEDS: LORazepam INJ (*CRX) 2 MG/ML VIAL 1 MG IV PUSH (13:38)
[2022-10-29] MEDS: SCOPOLAMINE 1.5 MG PATCH TRANSDERM (13:43)
--- NOTE | 2022-10-29 14:35 | PM.DDS ---
Discharge Summary Date and Time Date of : 10/29/22 Time of : 13:55 Probable Cause of Probable Cause of : Metastatic pancreatic cancer Summary Hospital Course: 72-year-old male with history of metastatic pancreatic cancer presented to the ED on 10/23/2022 due to generalized weakness and nausea. Patient had been feeling overall weak for several days prior to presentation. Patient gets a paracentesis every 2 weeks but was unable to make his most recent 1 due to his continued weakness. CT abdomen pelvis revealed a right and left pleural effusion, peritoneal carcinomatosis and worsened liver masses consistent with metastatic disease, large volume ascites and dilated small bowel. Patient had paracentesis that yielded 5 L of fluid on 10/23/2022. At the time of presentation patient was found to have a potassium of 5.1 , BUN and creatinine of 45 and 1.9, and a H&H of 6.9 and 23.1. Patient received a blood transfusion, started on Rocephin and normal saline. Patient developed hyponatremia during his hospital stay as well as continued hyperkalemia. Surgery consulted for paracentesis. Nephrology consulted for CARMEN and oncology consulted for metastatic disease. oncology evaluated the patient and he recommended possible abdominal catheter and a discharged home with hospice. Patient had electrolyte imbalances during his hospital stay, anemia, kidney failure and hypotension. Patient had 2nd paracentesis on 10/26/2022 that yielded 3.5 L of fluid. Hospice was discussed with the family and they were agreeable. It took the family a day or 2 to decide whether they wanted to truly go hospice or not. Patient's code status was changed to DNR on 10/27/2022. It was discussed with IR and General surgery if abdominal catheter would be possible at this facility and neither department could perform the procedure. Family decided to go hospice on 10/29/2022 and signed the paperwork and patient was put on comfort measures. Before hospice could evaluate the patient for an inpatient stay the patient had . Family was notified Additional Data Confirmation of as documented by pronouncing clinician: Pupillary Reflex, Palpable Pulses, Response to Stimuli, Heart Tones and Breath Sounds Family: contacted Additional persons at bedside: director of social media marketing and other Name of Provider Notified: Jolanta Roy PA-C Time Provider Notified: 13:55 Was code activated?: No Provider Requests Autopsy: No Family Requests Autopsy: No Salesperson [employer] Notified: Yes Hospice patient?: Yes (Family had signed with hospice but he had not yet been evaluated)
--- NOTE | 2022-10-29 15:13 | PC.NURSE ---
At approximately 1350, SCIENTIFIC PUBLICATIONS EDITOR asked for assistance in patient's room and no vital signs of life were observed. Charge nurse was notified and TOD was pronounced.
[2022-10-30 14:33] LABS: Chloride Rand Ur <20 mmol/L (32-290); Creatinine Random Urine 185 mg/dL (20-320)
[2022-11-04 14:15] LABS: RBC Peritoneal Fluid 236000 /uL (0-100000)
== END 2022-10-29 13:55 | disposition expired | DRG 436 ==
LOC: ANHED 12:37 → ANH2MED 16:14
PROVIDERS: Emergency Medicine; Internal Medicine Nephrology; Nurse Practitioner; Admitting Provider Student in an Organized Health Care Education/Training Program; Emergency Provider Emergency Medicine; PCP Internal Medicine; Visit Provider Internal Medicine Critical Care Medicine
DX: C78.7 Secondary malignant neoplasm of liver and intrahepatic bile duct (principal); C25.2 Malignant neoplasm of tail of pancreas; N17.9 Acute kidney failure, unspecified; R18.0 Malignant ascites; E87.1 Hypo-osmolality and hyponatremia; E87.5 Hyperkalemia; K21.9 Gastro-esophageal reflux disease without esophagitis; E78.5 Hyperlipidemia, unspecified; Z88.1 Allergy status to other antibiotic agents; M10.9 Gout, unspecified; N18.31 Chronic kidney disease, stage 3a; I12.9 Hypertensive chronic kidney disease with stage 1 through stage 4 chronic kidney disease, or unspecified chronic kidney disease; Z86.711 Personal history of pulmonary embolism; Z87.891 Personal history of nicotine dependence; Z79.899 Other long term (current) drug therapy
CPT/HCPCS: 36415; 36430; 49083; 71045; 74019; 74176; 74240; 74248; 76705; 76775; 80053; 81003; 81050; 82140; 82436; 82533; 82550; 82570; 82945; 83605; 83690; 83735; 84156; 84157; 84300; 84443; 84484; 84540; 85014; 85018; 85025; 85610; 85730; 86850; 86900; 86901; 86923; 87070; 87075; 87205; 89051; 92610; 93005; 96365; 96375; 96376; 97161; 97165; 97530; 99285; A9270; C9113; G0378; J0696; J1940; J2060; J2270; J2405; J3010; J7050; P9016